=== PATIENT | female | born 1965 | race Caucasian/White ===

== ENCOUNTER → 2019-01-18 16:07 | Outpatient (CLI) | payer OTHER, SELFPAY ==
[2019-01-18 10:07] VITALS: BMI 27.5
[2019-01-21 11:17] LABS: HPV APTIMA, High Risk Negative (Negative)
== END ==
PROVIDERS: Family Provider Internal Medicine; PCP Internal Medicine; Referring Provider Obstetrics & Gynecology; Visit Provider Obstetrics & Gynecology
DX: Z12.4 Encounter for screening for malignant neoplasm of cervix (principal)
CPT/HCPCS: 87624; 88175; G0145

== ENCOUNTER → 2019-02-21 | Outpatient (CLI) | payer OTHER, SELFPAY ==
[2019-01-18 10:07] VITALS: BMI 27.5
[2019-02-21 13:01] LABS: Free T3 2.3 pg/mL (2.18-3.98); T4 Free Direct 0.68 ng/dL (0.76-1.46); Thyroid Stim Hormone (TSH) 0.93 uIU/mL (0.358-3.74)
[2019-02-24 16:03] LABS: T3 Reverse 13.8 ng/dL (9.2-24.1)
== END | disposition home or self-care (01) ==
LOC: BFHLAB 09:22
PROVIDERS: Family Provider Family Medicine; PCP Family Medicine; Visit Provider Family Medicine
DX: E03.9 Hypothyroidism, unspecified (principal)
CPT/HCPCS: 36415; 84439; 84443; 84481; 84482

== ENCOUNTER 2019-10-25 11:01 | Emergency (ER) | payer OTHER, SELFPAY ==
[2019-01-18 10:07] VITALS: BMI 27.5
[2019-10-25 11:02] VITALS: BP 159/95; PULSE 90; RESP 16; TEMP 36.4; O2SAT 96; BMI 26.7
--- NOTE | 2019-10-25 11:27 | RAD_ITS ---
STUDY: X-RAY - LEFT ANKLE REASON FOR EXAM: Female, 54 years old. Atraumatic left ankle pain. TECHNIQUE: 3 view(s) of the ankle. COMPARISON: None. FINDINGS: Normal visualized distal tibia and fibula. Normal medial and lateral malleoli. Normal tibiotalar articulation and ankle mortise. Small inferior calcaneal spur. The visualized subtalar, talonavicular, calcaneocuboid and tarsal articulations are normal. The soft tissue structures are unremarkable. RAD/Ankle min 3 Views IMPRESSION: No acute abnormality. Electronically Signed: Miguel Aguillon MD at 11:56 EST , Service support ,
--- NOTE | 2019-10-25 11:49 | ED.DCSUM_ITS ---
History of Present Illness Chief Complaint: Lower Extremity Injury Informant: Patient Onset: Today Context: Sudden Onset Narrative: Patient is a 54-year-old female with history of thyroid dysfunction presenting with left ankle pain. Patient states she was seen on the couch with her left foot underneath her. She states it fell asleep and when she went to get up she walked on her ankle 3 times and it folded underneath her. Patient then had pain over her lateral ankle and foot. She came to the emergency room because of pain and swelling. She denies any other injuries. She denies any numbness or tingling. She denies any other injuries or complaints at this time. She did not take anything for pain prior to arrival. Past Medical History - Allergies and Home Meds Allergies/Adverse Reactions: Allergies No Known Allergies Allergy (Verified 10/25/19 11:02) Primary Care Physician: Negra Dasilva DO [Primary Care Provider] - Past Medical History: - - thyroid dysfunction Smoking Status: Never smoker Review of Systems General: Denies: Chills, Fever, Sweats Eyes: Denies: Visual changes - bilaterally, Diplopia ENT: Denies: Rhinorrhea, Sore throat Cardiovascular: Denies: Chest pain, Palpitations Respiratory: Denies: Dyspnea, Cough, Dyspnea on exertion Gastrointestinal: Denies: Abdominal pain, Nausea, Vomiting, Diarrhea, Melena, Hematochezia Genitourinary: Denies: Dysuria, Hematuria, Frequency Musculoskeletal: Reports: Swelling, Extremity Pain - left ankle . Denies: Back pain Skin: Denies: Rash, Wounds Neurological: Denies: Headache, Weakness, Numbness Physical Exam Vital Signs/Narrative: Vital Signs Temp Pulse Resp BP Pulse Ox 10/25/19 11:02 97.5 F L 90 16 159/95 H 96 Inital Vital Signs reviewed: Yes General: Well nourished, Well developed, No Acute Distress Head: Normocephalic, Atraumatic Eyes: Perrl, EOMI ENT: Moist mucous membranes, No rhinorrhea Neck: Supple, Nontender Cardiovascular: Regular rate, Regular rhythm, No murmurs Respiratory: No distress, CTA bilaterally, Chest nontender Abdomen: Soft, Nontender, Nondistended, Normal bowel sounds Back: Nontender, Normal Inspection Extremities: - - Tenderness to palpation over the lateral malleolus with associated soft tissue swelling, no medial bony tenderness palpation. No tenderness to palpation over the base of fifth metatarsal. Normal Campos's test. Normal strength and sensation in the lower extremity. Skin: Normal color, No rash, No Trauma Neurological: Alert, Oriented x3, Cranial nerves II-XII grossly intact, Normal Strength, Normal Sensation Psychological: Normal affect, Normal Mood Diagnostic/Tx/Re-eval Clinical Impression(s) from Imaging Studies Ankle X-Ray 10/25/19 11:27 IMPRESSION: No acute abnormality. Electronically Signed: Miguel Aguillon MD at 11:56 EST , Service support , - Medical Decision Making Patient rolled her left ankle. She has some associated soft tissue swelling. No bony tenderness. This is consistent with a sprain. She is able to weight- bear. She is given Motrin and a air splint. She is counseled to follow-up with her primary care doctor. She is neurovascularly intact. X-ray does not show any acute fracture. Patient is counseled on rice therapy. Patient is counseled on signs and symptoms requiring return to the emergency room. Patient verbalizes agreement and understand this plan. Patient discharged home in stable and improved condition. ED Disposition - Plan for ED Patient: Disposition: Home or Assisted Living Diagnosis: Left ankle sprain Instructions: Sprain, Ankle, with X-Ray Prescriptions: Ibuprofen [Motrin] 600 mg PO Q6H PRN PRN #20 tab PRN Reason: pain Prescription Printed Referrals: Negra Dasilva DO [Primary Care Provider] - Additional Instructions: You have a sprain ankle. Ice and elevate the leg as much as you can. Take anti-inflammatory such as ibuprofen for pain and inflammation. Follow-up with your primary care provider if no improvement in the next few days. Return to emergency room if you have significantly worsening symptoms or further concerns.
[2019-10-25] MEDS: Ibuprofen 600 MG Tablet PO (11:53)
== END 2019-10-25 12:46 | disposition home or self-care (01) ==
PROVIDERS: Emergency Provider Emergency Medicine; Family Provider Family Medicine; PCP Family Medicine
DX: S93.402A Sprain of unspecified ligament of left ankle, initial encounter (principal); X50.1XXA Overexertion from prolonged static or awkward postures, initial encounter; Y92.9 Unspecified place or not applicable; Y99.9 Unspecified external cause status; E07.9 Disorder of thyroid, unspecified
CPT/HCPCS: 73610; 99283

== ENCOUNTER 2019-11-16 16:59 | Emergency (ER) | payer OTHER, SELFPAY ==
[2019-11-16 17:00] VITALS: BP 151/89; PULSE 83; RESP 16; TEMP 36.9; O2SAT 95; BMI 26.6
--- NOTE | 2019-11-16 17:25 | CT_ITS ---
STUDY: CT BRAIN WITHOUT CONTRAST REASON FOR EXAM: Female, 54 years old. HEAD VS GRANFATHER CLOCK, BUMP TO LEFT FOREHEAD RADIATION DOSAGE (If Supplied By Facility): CTDIvol = ( 44.99 ) mGy, DLP = ( 779.24 ) mGycm TECHNIQUE: Transaxial CT imaging of the brain was performed without administration of intravenous contrast material. Individualized dose optimization techniques were used for this CT. COMPARISON: No relevant priors. FINDINGS: Normal soft tissue structures. Normal calvarium. Normal size ventricles and extra-axial spaces for the patient''s age. Normal white matter tracts of the cerebral hemispheres. Normal basal ganglia and thalami. Normal brainstem. Normal cerebellum. There is no intracranial hemorrhage. There are no findings of an acute ischemic infarction. Normal visualized paranasal sinuses. CT/Brain/Head without Contrast IMPRESSION: Normal unenhanced CT scan of the brain. Electronically Signed: Yamil Hernandes DO at 18:22 EST Tel , Service support ,
--- NOTE | 2019-11-16 18:22 | ED.DCSUM_ITS ---
- ER Visit Summary Date of Service: 11/16/19 Chief Complaint: Head injury History of Present Illness: The patient is a 54 F who hit her head on a grandfather clock just prior to arrival. She sustained some swelling to her left forehead and she is also having left ear ringing and left face tingling. No loss of consciousness. No blood thinners. Physical Examination: Afebrile and vital signs unremarkable. Left forehead hematoma noted. Otherwise HEENT exam unremarkable. Cranial nerves grossly intact. Normal strength and sensation. Neck is nontender. Skin is otherwise unremarkable. Test Results: CT brain pending. Emergency Department Course and Treatment: Patient likely has a concussion. Given her focal neurologic symptoms, CT was ordered. This was unremarkable. Patient was given instructions for concussion as well as hematoma. Ice and [id number]-ieamymw remedies. Follow-up with primary care or return for any new or worsening issues. Treatment Plan: As above Disposition: Discharged Impression: 1. Concussion 2. Forehead hematoma This note was generated with [employer] dictation software. It may contain incorrect words, spelling, and punctuation that were not noted in review of the chart prior to signing ED Disposition - Plan for ED Patient: Referrals: Negra Dasilva DO [Primary Care Provider] -
--- NOTE | 2019-11-16 18:28 | ED.DEP ---
ED Disposition - Plan for ED Patient: Instructions: CONCUSSION, No Wake Up Referrals: Negra Dasilva DO [Primary Care Provider] -
[2019-11-16 18:39] VITALS: BP 124/63; PULSE 71; RESP 15; O2SAT 98
== END 2019-11-16 18:41 | disposition home or self-care (01) ==
LOC: ED 17:27
PROVIDERS: Emergency Provider Emergency Medicine; Family Provider Family Medicine; PCP Family Medicine
DX: S06.0X0A Concussion without loss of consciousness, initial encounter (principal); S00.83XA Contusion of other part of head, initial encounter; W22.8XXA Striking against or struck by other objects, initial encounter; Y93.9 Activity, unspecified; Y92.9 Unspecified place or not applicable; F41.9 Anxiety disorder, unspecified; F32.9 Major depressive disorder, single episode, unspecified; Z79.899 Other long term (current) drug therapy
CPT/HCPCS: 70450; 99282

== ENCOUNTER → 2020-06-14 15:27 | Outpatient (CLI) | payer OTHER, SELFPAY ==
[2020-06-14 18:02] LABS: Absolute Lymphocyte Count 2.16 X10^3/uL (0.83-4.51); Absolute Neutrophil Count 3.8 X10^3/uL (2.0-7.7); Basophil# 0.05 X10^3/uL; Basophil% 0.8 % (0-1); Eosinophil# 0.05 X10^3/uL; Eosinophils% 0.8 % (0-5); Hematocrit 42.8 % (37-47); Hemoglobin 13.8 g/dL (12.0-15.0); Lymphocyte # 2.16 X10^3/ul (4.0); Lymphocyte % 33.9 % (19-41); Mean Corp Hgb Conc 32.2 g/dL (32-36); Mean Corpuscular Hgb 31.2 pg (27.0-32.0); Mean Corpuscular Volume 96.6 fL (81-99); Mean Platelet Vol. 11.7 fl (6.2-12.0); Monocyte# 0.35 X10^3/uL; Monocyte% 5.5 % (0-10); NRBC Flagged by Analyzer 0 % (0-5); Neutrophil # 3.76 X10^3/uL (2.7-7.7); Neutrophil % 58.8 % (47-70); Platelet Count 224 K/mm3 (150-450); RBC Distribution Width CV 13.2 % (11.6-14.6); RBC Distribution Width SD 46.7 fl (35.1-43.9); Red Blood Count 4.43 M/mm3 (4.2-5.4); White Blood Count 6.4 K/mm3 (4.4-11.0)
[2020-06-14 18:07] LABS: Vitamin D,25 Hydroxy 32.6 ng/mL
[2020-06-14 18:17] LABS: Erythrocyte Sedimentation Rate 10 mm/hr (0-30)
[2020-06-14 18:22] LABS: ALB/GLOB Ratio 0.9 RATIO (0.9-2.4); AST(SGOT) 30 U/L (15-37); Alanine Aminotransfer ALT/SGPT 44 U/L (13-56); Albumin, Serum 3.7 g/dL (3.2-5.0); Alkaline Phosphatase 120 U/L (45-117); Anion Gap 3 (5-15); BUN 17 mg/dL (7-18); BUN/Creat Ratio 17.3 RATIO (10-20); CRP < 2.90 mg/L (0.0-3.0); Calcium,Total 8.5 mg/dL (8.5-10.1); Chloride 104 mmol/L (98-107); Creatinine, Serum 0.98 mg/dL (0.55-1.02); EST Glomerular Filtration Rate 62 mL/min (>60); Est Glom Filt Rate - Afr Amer 75 mL/min (>60); Free T3 2.6 pg/mL (2.18-3.98); Globulin 3.9 g/dL (2.2-4.2); Glucose 75 mg/dL (74-106); Potassium 3.6 mmol/L (3.5-5.1); Protein, Total 7.6 g/dL (6.4-8.2); Rheumatoid Factor < 10.0 IU/mL (<15); Sodium Level 138 mmol/L (136-145); T4 Free Direct 0.71 ng/dL (0.76-1.46); Thyroid Stim Hormone (TSH) 2.44 uIU/mL (0.358-3.74)
[2020-06-16 12:22] LABS: ANTINUCLEAR ANTIBODIES DIRECT Negative (Negative)
== END ==
PROVIDERS: PCP Family Medicine; Visit Provider Family Medicine
DX: E03.2 Hypothyroidism due to medicaments and other exogenous substances (principal); E55.9 Vitamin D deficiency, unspecified; M25.50 Pain in unspecified joint; M79.10 Myalgia, unspecified site
CPT/HCPCS: 36415; 80053; 82306; 84439; 84443; 84481; 85025; 85652; 86038; 86140; 86225; 86235; 86431

== ENCOUNTER → 2020-09-13 12:47 | Outpatient (CLI) | payer OTHER, SELFPAY ==
[2020-09-13 15:40] LABS: Free T3 3.1 pg/mL (2.18-3.98); T4 Free Direct 0.83 ng/dL (0.76-1.46); Thyroid Stim Hormone (TSH) < 0.01 uIU/mL (0.358-3.74)
[2020-09-15 07:35] LABS: SARS-COV-2 TOTAL ABS Nonreactive (Nonreactive)
== END ==
PROVIDERS: PCP Family Medicine; Visit Provider Family Medicine
DX: E03.2 Hypothyroidism due to medicaments and other exogenous substances (principal)
CPT/HCPCS: 36415; 84439; 84443; 84481; 86769

== ENCOUNTER → 2020-11-15 08:53 | Outpatient (CLI) | payer OTHER, SELFPAY ==
[2020-11-07 14:10] VITALS: BMI 27.8
--- NOTE | 2020-11-15 08:53 | BI_ITS ---
MAMMOGRAPHY - BILATERAL SCREENING REASON FOR EXAM: Female, 55 years old. Routine annual screening examination. PERTINENT HISTORY: Non-contributory. TECHNIQUE: Digital bilateral breast farhan (3D mammographic acquisition) in the CC and MLO projections. 2-D mediolateral oblique (MLO) and craniocaudad (CC) views of both breasts were obtained. CAD: Full Field Digital Mammography with Computer Added Detection was performed. COMPARISON: No comparison mammograms available at this time. If any prior films become available, an addendum to this report can be generated. FINDINGS: Breast Composition: There are scattered areas of fibroglandular density. There are no dominant masses or suspicious calcifications. Benign appearing bilateral axillary lymph nodes. No other significant abnormalities are identified. BI/SCRN MAMM (CAD)W/FARHAN BILAT IMPRESSION: Negative screening mammogram. Yearly followup mammogram recommended. (A) ASSESSMENT CATEGORY: BIRADS Category 2: Benign. A letter regarding these results will be sent to the patient by the facility within 30 days. Approximately 10% of breast cancers are not detected by mammography. A normal mammogram should not delay biopsy of a clinically suspicious abnormality. [id number] Electronically Signed: Jose Eduardo Del Valle MD at 13:49 EST , Service support ,
== END ==
PROVIDERS: PCP Family Medicine; Referring Provider Obstetrics & Gynecology; Visit Provider Obstetrics & Gynecology
DX: Z12.31 Encounter for screening mammogram for malignant neoplasm of breast (principal)
CPT/HCPCS: 77063; 77067

== ENCOUNTER → 2022-06-10 | Outpatient (CLI) | payer OTHER, SELFPAY ==
[2022-06-10 12:33] LABS: Absolute Lymphocyte Count 1.79 X10^3/uL (0.83-4.51); Absolute Neutrophil Count 2.8 X10^3/uL (2.0-7.7); Basophil# 0.03 X10^3/uL; Basophil% 0.6 % (0-1); Eosinophil# 0.03 X10^3/uL; Eosinophils% 0.6 % (0-5); Hemoglobin 14.7 g/dL (12.0-15.0); Lymphocyte # 1.79 X10^3/ul (0.83-4.51); Lymphocyte % 36.3 % (19-41); Mean Corp Hgb Conc 33.4 g/dL (32-36); Mean Corpuscular Hgb 31.3 pg (27.0-32.0); Mean Corpuscular Volume 93.8 fL (81-99); Mean Platelet Vol. 11.4 fl (6.2-12.0); Monocyte# 0.29 X10^3/uL; Monocyte% 5.9 % (0-10); NRBC Flagged by Analyzer 0 % (0-5); Neutrophil # 2.78 X10^3/uL (2.7-7.7); Neutrophil % 56.4 % (47-70); Platelet Count 248 K/mm3 (150-450); RBC Distribution Width SD 44.3 fl (35.1-43.9); Red Blood Count 4.69 M/mm3 (4.2-5.4); White Blood Count 4.9 K/mm3 (4.4-11.0)
[2022-06-10 13:07] LABS: Vitamin D,25 Hydroxy 56.4 ng/mL
[2022-06-10 13:11] LABS: AST(SGOT) 23 U/L (15-37); Alanine Aminotransfer ALT/SGPT 38 U/L (13-56); Albumin, Serum 3.6 g/dL (3.2-5.0); Alkaline Phosphatase 115 U/L (45-117); Anion Gap 6 (5-15); BUN 21 mg/dL (7-18); BUN/Creat Ratio 23.8 RATIO (10-20); Calcium,Total 9.1 mg/dL (8.5-10.1); Chloride 106 mmol/L (98-107); Cholesterol 182 mg/dL (200); Creatinine, Serum 0.88 mg/dL (0.55-1.02); EST Glomerular Filtration Rate 70 mL/min (>60); Est Glom Filt Rate - Afr Amer 84 mL/min (>60); Globulin 3.7 g/dL (2.2-4.2); Glucose 86 mg/dL (74-106); High Density Lipoprotein 57 mg/dL; Potassium 3.9 mmol/L (3.5-5.1); Protein, Total 7.3 g/dL (6.4-8.2); Sodium Level 139 mmol/L (136-145); Triglycerides 80 mg/dL; Very Low Density Lipoprotein 16 mg/dL (5-40)
[2022-06-10 13:32] LABS: Free T3 2.7 pg/mL (2.18-3.98); T4 Free Direct 1.07 ng/dL (0.76-1.46); Thyroid Stim Hormone (TSH) 0.13 uIU/mL (0.358-3.74)
== END | disposition home or self-care (01) ==
LOC: MTLAB 11:14
PROVIDERS: Internal Medicine Endocrinology, Diabetes & Metabolism; PCP Family Medicine; Referring Provider Internal Medicine; Visit Provider Internal Medicine
DX: K58.9 Irritable bowel syndrome, unspecified (principal); E89.0 Postprocedural hypothyroidism; F34.1 Dysthymic disorder; E55.9 Vitamin D deficiency, unspecified
CPT/HCPCS: 36415; 80053; 80061; 82306; 84439; 84443; 84481; 85025

== ENCOUNTER → 2022-10-16 | Outpatient (CLI) | payer OTHER, SELFPAY ==
[2022-10-16 15:35] LABS: Absolute Lymphocyte Count 2.16 X10^3/uL (0.83-4.51); Absolute Neutrophil Count 4.1 X10^3/uL (2.0-7.7); Basophil# 0.08 X10^3/uL; Basophil% 1.2 % (0-1); Eosinophil# 0.04 X10^3/uL; Eosinophils% 0.6 % (0-5); Hematocrit 43.1 % (37-47); Lymphocyte # 2.16 X10^3/ul (0.83-4.51); Lymphocyte % 31.8 % (19-41); Mean Corp Hgb Conc 32.5 g/dL (32-36); Mean Corpuscular Hgb 30.2 pg (27.0-32.0); Mean Corpuscular Volume 92.9 fL (81-99); Mean Platelet Vol. 11.6 fl (6.2-12.0); Monocyte# 0.46 X10^3/uL; Monocyte% 6.8 % (0-10); NRBC Flagged by Analyzer 0 % (0-5); Neutrophil # 4.05 X10^3/uL (2.7-7.7); Neutrophil % 59.5 % (47-70); Platelet Count 275 K/mm3 (150-450); RBC Distribution Width CV 13.4 % (11.6-14.6); RBC Distribution Width SD 45.7 fl (35.1-43.9); Red Blood Count 4.64 M/mm3 (4.2-5.4); White Blood Count 6.8 K/mm3 (4.4-11.0)
[2022-10-16 16:20] LABS: ALB/GLOB Ratio 1.1 RATIO (0.9-2.4); AST(SGOT) 31 U/L (15-37); Alanine Aminotransfer ALT/SGPT 55 U/L (13-56); Albumin, Serum 3.7 g/dL (3.2-5.0); Alkaline Phosphatase 120 U/L (45-117); Anion Gap 11 (5-15); BUN 17 mg/dL (7-18); BUN/Creat Ratio 19.8 RATIO (10-20); Calcium,Total 8.4 mg/dL (8.5-10.1); Chloride 106 mmol/L (98-107); Creatinine, Serum 0.86 mg/dL (0.55-1.02); EST Glomerular Filtration Rate 72 mL/min (>60); Est Glom Filt Rate - Afr Amer 87 mL/min (>60); Free T3 3.2 pg/mL (2.18-3.98); Globulin 3.3 g/dL (2.2-4.2); Glucose 83 mg/dL (74-106); Potassium 3.9 mmol/L (3.5-5.1); Sodium Level 142 mmol/L (136-145); T4 Free Direct 1.24 ng/dL (0.76-1.46); Thyroid Stim Hormone (TSH) 0.03 uIU/mL (0.358-3.74)
== END | disposition home or self-care (01) ==
LOC: MTLAB 13:21
PROVIDERS: PCP Family Medicine; Referring Provider Family Medicine; Visit Provider Family Medicine
DX: E03.9 Hypothyroidism, unspecified (principal); Z51.81 Encounter for therapeutic drug level monitoring
CPT/HCPCS: 36415; 80053; 84439; 84443; 84481; 85025

== ENCOUNTER 2022-10-22 11:24 | Emergency (ER) | payer OTHER, SELFPAY ==
[2022-10-22 11:24] VITALS: BP 136/94; PULSE 102; RESP 16; TEMP 36.8; O2SAT 98; BMI 29.0
--- NOTE | 2022-10-22 12:05 | EDS_ITS ---
HPI History of Present Illness Chief Complaint: Nausea/Vomiting/Diarrhea Informant: patient and spouse/S.O. Narrative Narrative: 57-year-old female presenting to the emergency department with a chief complaint of vomiting and diarrhea. Patient states that on Thursday she began to have a headache and feel poorly. By Thursday she was having intermittent fevers headache cough rhinorrhea and has now subsequently developed vomiting and diarrhea. She states she did not have anything to drink Thursday and Thursday. She states she feels very dehydrated and talked to her doctor and was sent in for evaluation. She wonders if she has influenza. [facility] Medical History Anxiety and depression IBS (irritable bowel syndrome) Postablative hypothyroidism Thyroid disorder Home Medications liothyronine 5 mcg tablet 5 mcg PO DAILY 10/25/19 [History Last Taken Unknown] albuterol sulfate 90 mcg/actuation aerosol inhaler 2 puff inhalation Q6H PRN shortness of breath or wheezing #6.7 grams 10/27/21 [Rx Last Taken Unknown] levothyroxine 88 mcg tablet 88 mcg PO DAILY #90 tabs 04/25/22 [Rx Last Taken Unknown] promethazine 25 mg tablet 25 mg PO Q6H PRN 06/05/22 [History Last Taken Unknown] triamterene 37.5 mg-hydrochlorothiazide 25 mg capsule 1 cap PO DAILY PRN 06/05/22 [History Last Taken Unknown] codeine 7.5 mg-guaifenesin 225 mg/5 mL oral liquid 7.5 ml PO Q6H PRN cough 5 days #150 mL 10/22/22 [Rx Last Taken Unknown] ondansetron HCl 4 mg tablet 4 mg PO Q6H PRN nausea and vomiting #15 tabs 10/22/22 [Rx Last Taken Unknown] potassium chloride 20 mEq tablet,extended release 20 meq PO BID #10 tabs 10/22/22 [Rx Last Taken Unknown] Allergy/AdvReac Type Severity Reaction Status Date / Time No Known Allergies Allergy Verified 10/22/22 11:27 Family History Father Cancer colorectal Grandfather Myocardial infarction Grandmother Dementia Surgical History History of laparotomy Hx of appendectomy Hx of laparoscopy Social History Smoking Status: Never smoker alcohol intake: current details: social substance use type: does not use what type of physical activity do you participate in: walking seatbelt use: always do you feel safe at home: Yes additional social history: - Unemployed ROS ROS ED Constitutional Constitutional ED: Reports chills and fever(s); Denies weight loss Eyes Eyes: Denies change in vision or diplopia ENT ENT ED: Reports rhinorrhea; Denies ear pain or sore throat Cardiovascular Cardiovascular: Denies chest pain, orthopnea, palpitations or racing heartbeat Respiratory/Chest Respiratory/Chest: Reports cough; Denies dyspnea or orthopnea Gastrointestinal Gastrointestinal: Reports diarrhea, nausea and vomiting; Denies abdominal pain Genitourinary Genitourinary ED: Denies dysuria, hematuria or urinary frequency Musculoskeletal Musculoskeletal: Denies arthralgias or myalgias Integumentary Denies abscess or rash Neurologic Neurologic: Reports headache(s); Denies weakness Psychiatric Psychiatric: Denies anxiety, depression, suicidal ideation or suicidal thoughts Endocrine Endocrinology: Denies polydipsia, polyphagia or polyuria Allergic/Immunologic Allergic/Immunologic ED: Denies mouth swelling, tongue swelling or urticaria EXAM Physical Exam Const Vital Signs: 10/22/22 11:24 10/22/22 13:26 Temperature 98.2 F Temperature Source Temporal Pulse Rate 102 H 67 Respiratory Rate 16 18 Blood Pressure 136/94 H Blood Pressure Mean 108 Pulse Ox 98 99 Oxygen Delivery Method Room Air Room Air Positive well nourished and well developed General Appearance ED: well developed HEENT Reports normocephalic, head/scalp atraumatic and moist mucous membranes Eyes PERRL and EOMs intact bilaterally Neck no lymphadenopathy, supple and no JVD Resp normal respiratory effort and clear to auscultation bilaterally Cardio regular rate and no murmurs Rate: tachycardic GI normal to inspection, nondistended, normoactive bowel sounds and non-tender Palpation: soft Back/Spine no CVA tenderness and normal ROM Extremity normal to inspection General Extremety ED: Negative for edema General Extremity: Negative for edema Neuro oriented x3 and CN's II-XII intact bilaterally Sensorium / Orientation: alert Motor Exam: strength 5/5 throughout Psych mental status grossly normal Mood & Affect: Negative for depressed or tearful Skin no rashes or lesions noted and no wounds MDM MDM MDM Narrative Medical decision making narrative: Patient's COVID influenza is negative. My interpretation of the chest x-ray is acute process. Radiology is concerned about some mild degree of increased marking at the lung bases right greater than left. However her lung sounds are clear and her cough seems to sound more upper airway. Clinically she has a viral gastroenteritis viral URI. We checked her BMP which showed a potassium of 2.8 and a sodium of 131. She received 40 mEq of potassium and we will place her on supplementation. This is most likely combination of GI losses as well as her triamterene hydrochlorothiazide medication. I can write for the patient to have some codeine guaifenesin for her cough. At this point patient will be discharged home supportive care return if worsening or concerns Lab Data Attestation: I reviewed the patient's lab results. Labs: Laboratory Results - last 24 hr 10/22/22 12:30 Sodium 131 L Potassium 2.8 L Chloride 96 L Carbon Dioxide 26.0 Anion Gap 9 BUN 13 Creatinine 0.99 Estim Creat Clear Calc 52.84 Est GFR (MDRD) Af Amer 74 Est GFR (MDRD) Non-Af 61 BUN/Creatinine Ratio 13.2 Glucose 108 H Calcium 8.2 L Radiography Diagnostic Testing: Clinical Impression(s) from Imaging Studies Chest X-Ray 10/22/22 12:35 IMPRESSION: Mild degree of increased markings at the lung bases more prominent on the right side suggestive of atelectasis and/or early infiltrate. Follow-up recommended. Electronically Signed: Jose Eduardo Del Valel MD at 13:04 EST , Discharge Plan Triage Chief Complaint: Nausea/Vomiting/Diarrhea ED Provider: Ke Villarreal Dx/Rx/DC Orders Clinical Impression: Gastroenteritis, Acute hypokalemia, Acute dehydration Instructions: ED Gastroenteritis, Viral (Adult) Prescriptions: New ondansetron HCl 4 mg tablet 4 mg PO Q6H PRN (Reason: nausea and vomiting) Qty: 15 0RF potassium chloride 20 mEq tablet extended release 20 meq PO BID Qty: 10 0RF codeine-guaifenesin 7.5-225 mg/5 mL liquid 7.5 ml PO Q6H PRN (Reason: cough) 5 Days Qty: 150 0RF No Action albuterol sulfate 90 mcg/actuation HFA aerosol inhaler 2 puff inhalation Q6H PRN (Reason: shortness of breath or wheezing) Qty: 6.7 0RF triamterene-hydrochlorothiazid 37.5-25 mg capsule 1 cap PO DAILY PRN promethazine 25 mg tablet 25 mg PO Q6H PRN levothyroxine 88 mcg tablet 88 mcg PO DAILY Qty: 90 1RF liothyronine 5 MCG tablet 5 mcg PO DAILY Label Comments: 1 TABLET ORALLY DAILY ON AN EMPTY STOMACH Primary Care Provider: Negra Dasilva Referrals: Negra Dasilva DO [Primary Care Provider] - 3-5 Days if not improving Disposition Disposition: Home, Self Care
[2022-10-22] MEDS: Ondansetron 4 MG/2 ML Vial IV (12:31)
[2022-10-22] MEDS: 0.9% Normal Saline 1,000 ML 1000 ML IV ×2 (12:31→13:21)
--- NOTE | 2022-10-22 12:35 | RAD_ITS ---
STUDY: X-RAY CHEST REASON FOR EXAM: Female, 57 years old. Cough and nausea and vomiting. Chest congestion. TECHNIQUE: Single AP portable view of the chest. COMPARISON: None. FINDINGS: Mild increased markings at the lung bases suggestive of bibasilar atelectasis and/or possible infiltrates worse on the right side. There is no demonstrated pleural abnormality. Normal size heart. Normal mediastinum and norm. Normal visualized pulmonary arteries. Normal visualized aortic arch and descending thoracic aorta. Normal visualized thoracic spine. Normal visualized ribs, clavicles, and shoulders. There is no demonstrated abnormality of the visualized soft tissue structures of the upper abdomen. RAD/Chest 1 View (Portable) IMPRESSION: Mild degree of increased markings at the lung bases more prominent on the right side suggestive of atelectasis and/or early infiltrate. Follow-up recommended. Electronically Signed: Jose Eduardo Del Valle MD at 13:04 EST ,
[2022-10-22 12:50] LABS: Anion Gap 9 (5-15); BUN 13 mg/dL (7-18); BUN/Creat Ratio 13.2 RATIO (10-20); Calcium,Total 8.2 mg/dL (8.5-10.1); Chloride 96 mmol/L (98-107); Creatinine, Serum 0.99 mg/dL (0.55-1.02); EST Glomerular Filtration Rate 61 mL/min (>60); Est Glom Filt Rate - Afr Amer 74 mL/min (>60); Estimated Creatinine Clearance 52.84 ml/min; Glucose 108 mg/dL (74-106); Potassium 2.8 mmol/L (3.5-5.1); Sodium Level 131 mmol/L (136-145)
[2022-10-22] MEDS: Potassium Chloride Oral Soln 20 MEQ/15 ML UDC 40 MEQ PO (13:21)
[2022-10-22 13:26] VITALS: PULSE 67; RESP 18; O2SAT 99
[2022-10-22 14:35] VITALS: BP 124/66; PULSE 79; RESP 15; O2SAT 98
== END 2022-10-22 14:36 | disposition home or self-care (01) ==
PROVIDERS: Emergency Provider Emergency Medicine; PCP Family Medicine; Visit Provider Emergency Medicine
DX: K52.9 Noninfective gastroenteritis and colitis, unspecified (principal); E86.0 Dehydration; E87.6 Hypokalemia; Z20.822 Contact with and (suspected) exposure to COVID-19
CPT/HCPCS: 71045; 80048; 87428; 96361; 96374; 99282; J7030; J2405

== ENCOUNTER → 2022-12-23 | Outpatient (CLI) | payer OTHER, SELFPAY ==
[2022-12-23 12:27] LABS: Absolute Lymphocyte Count 2.09 X10^3/uL (0.83-4.51); Absolute Neutrophil Count 3.1 X10^3/uL (2.0-7.7); Basophil# 0.05 X10^3/uL; Basophil% 0.9 % (0-1); Eosinophil# 0.05 X10^3/uL; Eosinophils% 0.9 % (0-5); Hematocrit 44.4 % (37-47); Hemoglobin 14.3 g/dL (12.0-15.0); Lymphocyte # 2.09 X10^3/ul (0.83-4.51); Lymphocyte % 36.5 % (19-41); Mean Corp Hgb Conc 32.2 g/dL (32-36); Mean Corpuscular Hgb 30.4 pg (27.0-32.0); Mean Corpuscular Volume 94.3 fL (81-99); Mean Platelet Vol. 11.9 fl (6.2-12.0); Monocyte# 0.42 X10^3/uL; Monocyte% 7.3 % (0-10); NRBC Flagged by Analyzer 0 % (0-5); Neutrophil # 3.11 X10^3/uL (2.7-7.7); Neutrophil % 54.2 % (47-70); Platelet Count 276 K/mm3 (150-450); RBC Distribution Width CV 13.5 % (11.6-14.6); RBC Distribution Width SD 47.7 fl (35.1-43.9); Red Blood Count 4.71 M/mm3 (4.2-5.4); White Blood Count 5.7 K/mm3 (4.4-11.0)
[2022-12-23 12:57] LABS: AST(SGOT) 29 U/L (15-37); Alanine Aminotransfer ALT/SGPT 38 U/L (13-56); Albumin, Serum 3.8 g/dL (3.2-5.0); Alkaline Phosphatase 108 U/L (45-117); Anion Gap 8 (5-15); BUN 12 mg/dL (7-18); BUN/Creat Ratio 12.5 RATIO (10-20); Calcium,Total 8.9 mg/dL (8.5-10.1); Chloride 105 mmol/L (98-107); Creatinine, Serum 0.96 mg/dL (0.55-1.02); EST Glomerular Filtration Rate 63 mL/min (>60); Est Glom Filt Rate - Afr Amer 77 mL/min (>60); Free T3 3.2 pg/mL (2.18-3.98); Globulin 3.9 g/dL (2.2-4.2); Glucose 94 mg/dL (74-106); Potassium 3.8 mmol/L (3.5-5.1); Protein, Total 7.7 g/dL (6.4-8.2); Sodium Level 140 mmol/L (136-145); T4 Free Direct 1.08 ng/dL (0.76-1.46); Thyroid Stim Hormone (TSH) 0.34 uIU/mL (0.358-3.74)
[2022-12-23 17:48] LABS: Xtra Tube EP Lab EXTRA TUBE
== END | disposition home or self-care (01) ==
LOC: BFHLAB 09:40
PROVIDERS: PCP Family Medicine; Visit Provider Family Medicine
DX: E03.9 Hypothyroidism, unspecified (principal); Z51.81 Encounter for therapeutic drug level monitoring
CPT/HCPCS: 36415; 80053; 84439; 84443; 84481; 85025

== ENCOUNTER → 2023-01-30 | Outpatient (CLI) | payer OTHER, SELFPAY ==
[2023-01-30 15:25] LABS: Free T3 2.7 pg/mL (2.18-3.98); T4 Free Direct 0.75 ng/dL (0.76-1.46); Thyroid Stim Hormone (TSH) 0.78 uIU/mL (0.358-3.74)
== END | disposition home or self-care (01) ==
LOC: BFHLAB 11:13
PROVIDERS: PCP Family Medicine; Referring Provider Family Medicine; Visit Provider Family Medicine
DX: E03.9 Hypothyroidism, unspecified (principal)
CPT/HCPCS: 36415; 84439; 84443; 84481

== ENCOUNTER → 2023-05-11 | Outpatient (CLI) | payer OTHER, SELFPAY ==
[2023-05-11 12:23] LABS: Free T3 2.5 pg/mL (2.18-3.98); T4 Free Direct 0.76 ng/dL (0.76-1.46)
== END | disposition home or self-care (01) ==
LOC: BFHLAB 10:35
PROVIDERS: PCP Family Medicine; Referring Provider Family Medicine; Visit Provider Family Medicine
DX: E03.9 Hypothyroidism, unspecified (principal)
CPT/HCPCS: 36415; 84439; 84443; 84481

== ENCOUNTER → 2024-01-01 | Outpatient (CLI) | payer OTHER, SELFPAY ==
--- OUTSIDE RECORDS SUMMARY | 2024-01-01 11:27 | XMS RPT_ITS | CCD ---
Author Name Unknown Address [address] [place] [address] Organization [facility] Care Team Providers Care Bean Sorter Name Role Phone JUVENCIO HERNANDEZ Unavailable Unavailable JUVENCIO HERNANDEZ Unavailable Unavailable AUGUST BRAN Attending Unavailable AUGUST BRAN Primary Care Unavailable AUGUST BRAN Admitting Unavailable Allergies Allergy Classification Reported Allergen(s) Allergy Type Date of Onset Reaction(s) Facility (1 source) Seasonal allergy; Translations: [SEASONAL ALLERGIES] Propensity to adverse reactions (disorder) 8 [facility] Repository Problems Problem Classification Problem Date Documented Date Episodic/Chronic Complications of surgical procedures or medical care (1 source) Postprocedural hypothyroidism; Translations: [Postprocedural hypothyroidism] Onset: 10-16-2018 Chronic Nutritional deficiencies (1 source) Vitamin D deficiency, unspecified; Translations: [Vitamin D deficiency, unspecified] Onset: 10-16-2018 Chronic Other screening for suspected conditions (not mental disorders or infectious disease) (1 source) Other abnormal and inconclusive findings on diagnostic imaging of breast; Translations: [Other abnormal and inconclusive findings on diagnostic imaging of breast] Onset: 10-16-2018 Episodic Thyroid disorders (1 source) Thyrotoxicosis with diffuse goiter without thyrotoxic crisis or storm; Translations: [Thyrotoxicosis with diffuse goiter without thyrotoxic crisis or storm] Onset: 10-16-2018 Chronic Results Test Name Value Interpretation Reference Range Facil ity Encounters Encounter Date Encounter Type Care Provider Facility Start: 10-30-2021 End: 10-30-2021 [facility]: 10-16-2018 End: 11-01-2018 Patient encounter procedure JUVENCIO HERNANDEZ [facility] Start: 06-07-2018 End: 06-10-2018 Patient encounter procedure JUVENCIO HERNANDEZ [facility] Start: 06-04-2018 End: 06-07-2018 [facility] Payers Date Payer Category Payer Unknown [id number] [id number] [id number] Unknown [id number] Summary Purpose Family History No Family History Records FoundNo Family History Records Found Advance Directives No Advanced Directives Records FoundNo Advanced Directives Records Found Additional Source Comments INFORMATION SOURCE (unrecogn ized section and content) DATE CREATED AUTHOR AUTHOR'S ORGANIZ ATION 11/01/2021 [facility] FOR RECORDS PERTAINING TO PATIENTS WHO ARE OR HAVE BEEN ENROLLED IN A CHEMICAL DEPENDENCY/SUBSTANCEABUSE PROGRAM, SOME INFORMATION MAY BE OMITTED. This clinical summary was aggregated from multiple sources. Caution should be exercised in using it in the provision of clinical care. This summary normalizes information from multiple sources, and as a consequence, information in this document may materially change the coding, format and clinical context of patient data. In addition, data may be omitted in some cases. CLINICAL DECISIONS SHOULD BE BASED ON THE PRIMARY CLINICAL RECORDS. [facility] [employer] [facility]. provides no warranty or guarantee of the accuracy or completeness of information in this document.
== END | disposition home or self-care (01) ==
LOC: BFHLAB 11:02 → LABSPEC 11:03
PROVIDERS: PCP Family Medicine; Visit Provider Family Medicine
DX: N30.91 Cystitis, unspecified with hematuria (principal)
CPT/HCPCS: 87086; 87088

== ENCOUNTER → 2024-01-13 | Outpatient (CLI) | payer OTHER, SELFPAY ==
[2024-01-13 11:56] LABS: Absolute Lymphocyte Count 2.04 X10^3/uL (0.83-4.51); Absolute Neutrophil Count 3.6 X10^3/uL (2.0-7.7); Basophil# 0.06 X10^3/uL; Eosinophils% 1.6 % (0-5); Hematocrit 44.5 % (37-47); Hemoglobin 14.2 g/dL (12.0-15.0); Lymphocyte # 2.04 X10^3/ul (0.83-4.51); Lymphocyte % 32.7 % (19-41); Mean Corp Hgb Conc 31.9 g/dL (32-36); Mean Corpuscular Hgb 30.4 pg (27.0-32.0); Mean Corpuscular Volume 95.3 fL (81-99); Monocyte# 0.38 X10^3/uL; Monocyte% 6.1 % (0-10); NRBC Flagged by Analyzer 0 % (0-5); Neutrophil # 3.64 X10^3/uL (2.7-7.7); Neutrophil % 58.4 % (47-70); Platelet Count 260 K/mm3 (150-450); RBC Distribution Width CV 13.7 % (11.6-14.6); RBC Distribution Width SD 48.1 fl (35.1-43.9); Red Blood Count 4.67 M/mm3 (4.2-5.4); White Blood Count 6.2 K/mm3 (4.4-11.0)
[2024-01-13 12:35] LABS: ALB/GLOB Ratio 1.1 RATIO (0.9-2.4); AST(SGOT) 22 U/L (15-37); Alanine Aminotransfer ALT/SGPT 23 U/L (13-56); Albumin, Serum 3.8 g/dL (3.2-5.0); Alkaline Phosphatase 84 U/L (45-117); Anion Gap 5 (5-15); BUN 16 mg/dL (7-18); BUN/Creat Ratio 16.3 RATIO (10-20); Calcium,Total 8.9 mg/dL (8.5-10.1); Chloride 107 mmol/L (98-107); Cholesterol 181 mg/dL (200); Creatinine, Serum 0.98 mg/dL (0.55-1.02); EST Glomerular Filtration Rate 62 mL/min (>60); Est Glom Filt Rate - Afr Amer 74 mL/min (>60); Free T3 1.6 pg/mL (2.18-3.98); Globulin 3.4 g/dL (2.2-4.2); Glucose 94 mg/dL (74-106); High Density Lipoprotein 56 mg/dL; Protein, Total 7.2 g/dL (6.4-8.2); Sodium Level 140 mmol/L (136-145); T4 Free Direct 0.54 ng/dL (0.76-1.46); Triglycerides 93 mg/dL; Very Low Density Lipoprotein 19 mg/dL (5-40)
--- OUTSIDE RECORDS SUMMARY | 2024-01-13 20:14 | XMS RPT_ITS | CCD ---
Author Name Unknown Address [address] [place] [address] Organization [facility] Care Team Providers Care Financial Services Agent Name Role Phone JUVENCIO HERNANDEZ Unavailable Unavailable JUVENCIO HERNANDEZ Unavailable Unavailable AUGUST BRAN Attending Unavailable AUGUST BRAN Primary Care Unavailable AUGUST BRAN Admitting Unavailable Allergies Allergy Classification Reported Allergen(s) Allergy Type Date of Onset Reaction(s) Facility (1 source) Seasonal allergy; Translations: [SEASONAL ALLERGIES] Propensity to adverse reactions (disorder) 8 [facility] Repository Problems Problem Classification Problem Date Documented [...] End: 10-30-2021 [facility] Start: 10-16-2018 End: 11-01-2018 Patient encounter procedure JUVENCIO HERNANDEZ [facility] Start: 06-07-2018 End: 06-10-2018 Patient encounter procedure JUVENCIO HERNANDEZ [facility] Start: 06-04-2018 End: 06-07-2018 [facility] Payers Date Payer Category Payer Unknown [id number] Unknown [id number] Summary Purpose Family History No Family History Records FoundNo Family History Records Found Advance Directives No Advanced Directives Records FoundNo Advanced Directives Records Found Additional Source Comments INFORMATION SOURCE (unrecogn ized section and content) DATE CREATED AUTHOR AUTHOR'S ORGANIZ ATION 11/01/2021 [facility] FOR RECORDS PERTAINING TO PATIENTS WHO [...] BE BASED ON THE PRIMARY CLINICAL RECORDS. [facility] [employer] [facility]. provides no warranty or guarantee of the accuracy or completeness of information in this document.
== END | disposition home or self-care (01) ==
LOC: BFHLAB 10:30
PROVIDERS: PCP Family Medicine; Visit Provider Family Medicine
DX: E03.9 Hypothyroidism, unspecified (principal); E78.5 Hyperlipidemia, unspecified
CPT/HCPCS: 36415; 80053; 80061; 84439; 84443; 84481; 85025

== ENCOUNTER → 2024-02-24 | Outpatient (CLI) | payer OTHER, SELFPAY ==
--- NOTE | 2024-02-24 10:36 | BI_ITS ---
MAMMOGRAPHY - BILATERAL SCREENING REASON FOR EXAM: Female, 58 years old. Routine annual screening examination. PERTINENT HISTORY: Non-contributory. TECHNIQUE: Digital bilateral breast farhan (3D mammographic acquisition) in the CC and MLO projections. 2-D mediolateral oblique (MLO) and craniocaudad (CC) views of both breasts were obtained. CAD: Full Field Digital Mammography with Computer Added Detection was performed. COMPARISON: Comparison is made with prior study of November 15, 2020. FINDINGS: Breast Composition: The breasts are heterogeneously dense, which may obscure small masses. There are no dominant masses or suspicious calcifications. Stable small benign-appearing bilateral axillary lymph nodes. No other significant abnormalities are identified. There has been no significant change since the prior study. BI/SCRN MAMM (CAD)W/FARHAN BILAT IMPRESSION: Stable bilateral screening mammogram. Yearly follow-up mammogram recommended. (A) ASSESSMENT CATEGORY: BIRADS Category 2: Benign. A letter regarding these results will be sent to the patient by the facility within 30 days. Approximately 10% of breast cancers are not detected by mammography. A normal mammogram should not delay biopsy of a clinically suspicious abnormality. [id number] Electronically Signed: Jose Eduardo Del Valle MD at 12:12 EDT ,
== END | disposition home or self-care (01) ==
LOC: OPBI 10:34
PROVIDERS: PCP Family Medicine; Referring Provider Family Medicine; Visit Provider Family Medicine
DX: Z12.31 Encounter for screening mammogram for malignant neoplasm of breast (principal)
CPT/HCPCS: 77063; 77067

== ENCOUNTER 2024-03-29 07:50 | Day surgery (SDC) | payer OTHER, SELFPAY ==
[2024-03-29] VITALS (7 sets, daily range): BP systolic 82–102; BP diastolic 45–75; PULSE 66–74; RESP 16; TEMP 36.3–36.9; O2SAT 98–100; BMI 22.1
[2024-03-29] MEDS: Lactated Ringers 1,000 ML 15 ML IV (08:14)
--- NOTE | 2024-03-29 08:16 | PCM.HP.STD ---
[facility] - General General Date of Service: 03/29/24 Chief Complaint: Family history of colon cancer, surveillance HPI Narrative AUGUST URIBE, is a 58 F who presents for a surveillance colonoscopy today. She has a family history of her father had rectal cancer and from it. Her previous colonoscopy was December 2016. Fortunately she has not had any bright red blood per rectum or melena. She presents via open access today. [facility] Medical History (Updated 03/29/24 @ 08:[address] Phil Ruiz MD) Wears glasses Graves disease Fatty liver Diverticulosis History of IBS Non-smoker Adult ADHD Family history of colon cancer in father IBS (irritable bowel syndrome) Postablative hypothyroidism Thyroid disorder Anxiety and depression Home Medications ?Medication ?Instructions ?Recorded ?Last Taken ?Type albuterol sulfate 90 mcg/actuation 2 puff inhalation Q6H PRN 07/30/23 Unknown History aerosol inhaler shortness of breath or wheezing dextroamphetamine-amphetamine ER 15 mg PO DAILY 01/28/24 Unknown History 15 mg 24hr capsule,extend release semaglutide 0.25 mg or 0.5 mg (2 0.5 mg subcut QWEEK 01/28/24 Unknown History mg/3 mL) subcutaneous pen injector (Ozempic) thyroid (pork) 90 mg tablet 90 mg PO DAILY 01/28/24 Unknown History ([facility] Thyroid) Allergy/AdvReac Type Severity Reaction Status Date / Time No Known Allergies Allergy Verified 03/29/24 08:07 Family History (Updated 01/28/24 @ 10:40 by Mary Arias) Father Colorectal cancer Grandfather Myocardial infarction Colon cancer Grandmother Dementia Surgical History Hx of colonoscopy Hx of appendectomy History of laparotomy Hx of laparoscopy Social History current occupational status: employed Smoking Status: Never smoker alcohol intake: current details: social substance use type: does not use what type of physical activity do you participate in: walking seatbelt use: always do you feel safe at home: Yes additional social history: ROS Constitutional Constitutional: Reports systems reviewed and no addt'l complaints, except as documented Cardiovascular Cardiovascular: Denies chest pain Respiratory/Chest Respiratory/Chest: Denies shortness of breath at rest Gastrointestinal Gastrointestinal: Denies abdominal pain, change in bowel habits, hematochezia or melena Vital Signs Vital Signs Vital Signs: 03/29/24 08:07 03/29/24 08:07 Temperature 98.5 F Temperature Source Temporal Pulse Rate 74 Respiratory Rate 16 Respiratory Pattern Normal Blood Pressure 102/75 Blood Pressure Mean 84 Blood Pressure Source Monitor Blood Pressure Position Semi-Fowlers Blood Pressure Location Left Arm Pulse Ox 100 Oxygen Delivery Method Room Air Weight Weight: 128 lb 11.999 oz Body Mass Index (BMI) 22.1 Physical Exam Const alert, oriented x3 and no apparent distress General Appearance: cooperative and comfortable Eyes General Eye: normal appearance of both eyes Neck General: normal visual inspection Chest inspection of chest normal Resp Effort and Inspection: able to speak in complete sentences and symmetric chest movement Auscultation: clear to auscultation bilaterally Cardio regular rate and regular rhythm GI soft to palpation, non-tender and non-distended Extremity no calf tenderness Neuro oriented x3 Psych thought process normal Assessment & Plan Assessment/Plan (1) Family history of colon cancer in father: PLAN: The patient presents via open access today for a surveillance colonoscopy based upon a family history of colon cancer in her father. She is aware of the technique, benefit, risk, alternatives. She has had an opportunity to ask and have questions answered. We will proceed as noted. Phil Ruiz M.D., F.A.C.S.
--- NOTE | 2024-03-29 10:00 | OP.CCLET_ITS ---
03/29/2024 Negra Dasilva [address] [place] [address] Re : Colonoscopy procedure for Isa Kendrick Dear Dr. Dasilva This procedure was performed on Friday, March 29, 2024. My impressions and recommendations are as follows: Impressions : - Hemorrhoids found on perianal exam. - Diverticulosis in the sigmoid colon. - The examination was otherwise normal. - No specimens collected. Recommendations : - Discharge patient to home. - Resume previous diet. - Continue present medications. - Repeat colonoscopy in 5 years for surveillance. My findings are described in the full procedure note, which is enclosed. If I can be of further assistance, please feel free to contact me at Doctor phone number(s): Work: . Sincerely, Phil Ruiz MD 03/29/2024 9:59:50 AM This report has been signed electronically.
--- NOTE | 2024-03-29 10:00 | OP.COLON_ITS ---
Patient Name: Isa Kendrick Procedure Date: 03/29/2024 9:31 AM Date of : 1965 Age: 58 Procedure: Colonoscopy Indications: Colon cancer screening in patient at increased risk: Colorectal cancer in father Providers: Phil Ruiz MD Medicines: See the Anesthesia note for documentation of the administered medications Patient Profile: Last Colonoscopy: December 2016. Complications: No immediate complications. Procedure: Pre-Anesthesia Assessment: - Prior to the procedure, a History and Physical was performed, and patient medications and allergies were reviewed. The patient's tolerance of previous anesthesia was also reviewed. The risks and benefits of the procedure and the sedation options and risks were discussed with the patient. All questions were answered, and informed consent was obtained. Prior Anticoagulants: The patient has taken no anticoagulant or antiplatelet agents. ASA Grade Assessment: II - A patient with mild systemic disease. After reviewing the risks and benefits, the patient was deemed in satisfactory condition to undergo the procedure. After I obtained informed consent, the scope was passed under direct vision. Throughout the procedure, the patient's blood pressure, pulse, and oxygen saturations were monitored continuously. The adult colonoscope was introduced through the anus and advanced to the cecum, identified by appendiceal orifice and ileocecal valve. The colonoscopy was somewhat difficult due to multiple diverticula in the colon. The patient tolerated the procedure well. The quality of the bowel preparation was good. The ileocecal valve and the appendiceal orifice were photographed. Scope In: 9:39:11 AM Scope Withdrawal Time 0 hours 7 minutes 49 seconds Scope Out: 9:54:47 AM Total Procedure Duration Time 0 hours 15 minutes 36 seconds Findings: Hemorrhoids were found on perianal exam. Multiple diverticula were found in the sigmoid colon. The exam was otherwise without abnormality. Impression: - Hemorrhoids found on perianal exam. - Diverticulosis in the sigmoid colon. - The examination was otherwise normal. - No specimens collected. Recommendation: - Discharge patient to home. - Resume previous diet. - Continue present medications. - Repeat colonoscopy in 5 years for surveillance. Procedure Code(s): --- Professional --- 34989, Colonoscopy, flexible; diagnostic, including collection of specimen(s) by brushing or washing, when performed (separate procedure) Diagnosis Code(s): --- Professional --- K64.9, Unspecified hemorrhoids K57.30, Diverticulosis of large intestine without perforation or abscess without bleeding CPT copyright 2021 [employer]. All rights reserved. The codes documented in this report are preliminary and upon women specialist review may be revised to meet current compliance requirements. Phil Ruiz MD 03/29/2024 9:59:50 AM This report has been signed electronically. Number of Addenda: 0 Note Initiated On: 03/29/2024 9:31 AM
== END 2024-03-29 10:54 | disposition home or self-care (01) ==
LOC: EN 07:51 → AC 07:51
PROVIDERS: PCP Family Medicine; Referring Provider Family Medicine; Visit Provider Surgery
PROC: 0DJD8ZZ Inspection of Lower Intestinal Tract, Via Natural or Artificial Opening Endoscopic (ICD-10-PCS; CPT 45378; principal; 2024-03-29 08:55)
DX: Z12.11 Encounter for screening for malignant neoplasm of colon (principal); K57.30 Diverticulosis of large intestine without perforation or abscess without bleeding; Z80.0 Family history of malignant neoplasm of digestive organs; K64.9 Unspecified hemorrhoids
CPT/HCPCS: 45378; J2405

== ENCOUNTER 2024-05-05 05:59 | Emergency (ER) | payer OTHER, SELFPAY ==
[2024-05-05 06:00] VITALS: BP 149/84; PULSE 55; RESP 16; TEMP 36.4; O2SAT 100; BMI 22.5
[2024-05-05 06:51] LABS: Absolute Lymphocyte Count 1.67 X10^3/uL (0.83-4.51); Absolute Neutrophil Count 6.3 X10^3/uL (2.0-7.7); Basophil# 0.03 X10^3/uL; Basophil% 0.4 % (0-1); Eosinophil# 0.07 X10^3/uL; Eosinophils% 0.8 % (0-5); Hemoglobin 13.5 g/dL (12.0-15.0); Lymphocyte # 1.67 X10^3/ul (0.83-4.51); Lymphocyte % 19.9 % (19-41); Mean Corp Hgb Conc 32.9 g/dL (32-36); Mean Corpuscular Hgb 30.5 pg (27.0-32.0); Mean Corpuscular Volume 92.6 fL (81-99); Monocyte# 0.34 X10^3/uL; NRBC Flagged by Analyzer 0 % (0-5); Neutrophil # 6.27 X10^3/uL (2.7-7.7); Neutrophil % 74.5 % (47-70); Platelet Count 217 K/mm3 (150-450); RBC Distribution Width CV 12.2 % (11.6-14.6); RBC Distribution Width SD 41.6 fl (35.1-43.9); Red Blood Count 4.43 M/mm3 (4.2-5.4); White Blood Count 8.4 K/mm3 (4.4-11.0)
[2024-05-05 07:01] LABS: Color, Urine Yellow (Yellow); Glucose, Dipstick Normal (Normal); Ketone-Dipstick Negative (Negative); Leukocyte Esterase-Dipstick 25 /ul (Negative); Nitrite-Dipstick Negative (Negative); Occult Blood-Urine 250 /ul (Negative); Protein-Dipstick Negative (Negative); Specific Gravity, Urine 1.015 (1.002-1.030); Urine Bilirubin Dipstick Negative (Negative); Urine Clarity Clear (Clear); Urine Urobilinogen Normal (Normal); Urine pH 6.5 (5.0 - 8.0)
[2024-05-05 07:09] LABS: AST(SGOT) 20 U/L (15-37); Alanine Aminotransfer ALT/SGPT 28 U/L (13-56); Albumin, Serum 3.2 g/dL (3.2-5.0); Alkaline Phosphatase 86 U/L (45-117); Anion Gap 7 (5-15); BUN 23 mg/dL (7-18); BUN/Creat Ratio 24.3 RATIO (10-20); Bilirubin, Direct 0.13 mg/dL (0.00-0.30); Calcium,Total 8.7 mg/dL (8.5-10.1); Chloride 108 mmol/L (98-107); Creatinine, Serum 0.95 mg/dL (0.55-1.02); EST Glomerular Filtration Rate 64 mL/min (>60); Est Glom Filt Rate - Afr Amer 77 mL/min (>60); Estimated Creatinine Clearance 54.38 ml/min; Globulin 3.3 g/dL (2.2-4.2); Glucose 131 mg/dL (74-106); Lipase 31 U/L (13-75); Potassium 3.8 mmol/L (3.5-5.1); Protein, Total 6.5 g/dL (6.4-8.2); Sodium Level 141 mmol/L (136-145)
[2024-05-05 07:28] LABS: Red Blood Cells-Urine 10-25 SEEN /hpf (0-5)
[2024-05-05 07:29] LABS: Bacteria 1+ /hpf (None Seen); White Blood Cells 0-5 SEEN /hpf (0-5)
[2024-05-05 07:31] LABS: Mucous, Urine 1+ /hpf (<or=2+); Squamous Epithelial Cells - UA 0-5 SEEN /hpf (5-10)
--- NOTE | 2024-05-05 07:37 | CT_ITS ---
STUDY: CT ABDOMEN AND PELVIS WITHOUT CONTRAST REASON FOR EXAM: Female, 58 years old. Hematuria. Abdominal/bladder pain. Right-sided abdominal pain. RADIATION DOSAGE (If Supplied By Facility): CTDIvol = ( 6.29 ) mGy, DLP = ( 288.95 ) mGycm TECHNIQUE: Transaxial images were obtained from the dome of the diaphragm to the symphysis pubis without oral contrast, and without intravenous contrast. Sagittal and coronal images were reconstructed. Individualized dose optimization techniques were used for this CT. COMPARISON: None. FINDINGS: The visualized lung bases are unremarkable. The visualized portions of the heart are within normal limits. Normal liver. Normal gallbladder and extrahepatic biliary system. Normal spleen. Normal pancreas. Normal bilateral adrenal glands. Mild degree of right hydronephrosis and mild right nephric stranding. Punctate nonobstructive calculus is seen in the lower pole anterior portion of the right kidney. There is a 2.8 mm calculus at the right ureterovesical junction. Normal left kidney. Normal visualized stomach. Normal small intestine. Moderate amount of fecal material is seen in the colon. Sigmoid diverticulosis. There are surgical clips in the region of the appendix consistent with a prior appendectomy. There is scattered atherosclerotic calcification of the abdominal aorta, without a demonstrated aneurysm. Normal inferior vena cava. Normal retroperitoneum. Normal urinary bladder. Normal abdominal wall. Normal osseous structures. CT/Abdomen/Pelvis without Cont IMPRESSION: 2.8 mm calculus at the right ureterovesical junction causing mild degree of right hydronephrosis and right perinephric stranding. Sigmoid diverticulosis. Electronically Signed: Jose Eduardo Del Valle MD at 8:36 EDT ,
--- NOTE | 2024-05-05 07:55 | EX.ED.DYSGE1 ---
HPI History of Present Illness Chief Complaint: Abd Pain Informant: patient and friend Narrative Narrative: Patient is a 58-year-old female with past medical history of hypothyroidism as well as IBS. She states that she has not been drinking enough water over the last few days and has noticed mild irritation with urination. She states that she hydrated herself and symptoms seem to improve. However this morning she awoke and had pain in the right upper abdomen and had concerned that this may be related to worsening infection or kidney stone or her use of Ozempic and therefore comes in for evaluation [facility] Medical History (Updated 05/07/24 @ 04:[address] Lucho Vines, DO) Hypothyroidism Wears glasses Graves disease Fatty liver Diverticulosis History of IBS Non-smoker Adult ADHD Family history of colon cancer in father IBS (irritable bowel syndrome) Postablative hypothyroidism Thyroid disorder Anxiety and depression Home Medications ?Medication ?Instructions ?Recorded ?Last Taken ?Type albuterol sulfate 90 mcg/actuation 2 puff inhalation Q6H PRN 07/30/23 Unknown History aerosol inhaler shortness of breath or wheezing dextroamphetamine-amphetamine ER 15 mg PO DAILY 01/28/24 Unknown History 15 mg 24hr capsule,extend release semaglutide 0.25 mg or 0.5 mg (2 0.5 mg subcut QWEEK 01/28/24 04/29/24 History mg/3 mL) subcutaneous pen injector (Ozempic) thyroid (pork) 90 mg tablet 90 mg PO DAILY 01/28/24 Unknown History ([facility] Thyroid) cephalexin 500 mg capsule 500 mg PO TID 7 days #21 caps 05/05/24 Unknown Rx ketorolac 10 mg tablet 10 mg PO 4X/DAY PRN pain 5 days 05/05/24 Unknown Rx #20 tabs oxycodone-acetaminophen 5 mg-325 1 tab PO Q6H PRN pain 3 days #12 05/05/24 Unknown Rx mg tablet (Percocet) tabs tamsulosin 0.4 mg capsule (Flomax) 0.4 mg PO DAILY 14 days #14 caps 05/05/24 Unknown Rx Allergy/AdvReac Type Severity Reaction Status Date / Time No Known Allergies Allergy Verified 03/29/24 08:07 Family History (Updated 01/28/24 @ 10:40 by Mary Arias) Father Colorectal cancer Grandfather Myocardial infarction Colon cancer Grandmother Dementia Surgical History Hx of colonoscopy Hx of appendectomy History of laparotomy Hx of laparoscopy Social History current occupational status: employed Smoking Status: Never smoker alcohol intake: current details: social substance use type: does not use what type of physical activity do you participate in: walking seatbelt use: always do you feel safe at home: Yes additional social history: ROS ROS ED Constitutional Constitutional ED: Denies chills or fever(s) Eyes Eyes: Denies change in vision ENT ENT ED: Denies sore throat Cardiovascular Cardiovascular: Denies chest pain Respiratory/Chest Respiratory/Chest: Denies cough or dyspnea Gastrointestinal Gastrointestinal: Reports abdominal pain; Denies diarrhea, nausea or vomiting Genitourinary Genitourinary ED: Reports dysuria Musculoskeletal Musculoskeletal: Denies myalgias Integumentary Denies rash Neurologic Neurologic: Denies headache(s) Hematologic/Lymphatic Hematologic/Lymphatic: Denies easy bleeding or easy bruising EXAM Physical Exam Const Vital Signs: 05/05/24 06:00 Temperature 97.6 F L Temperature Source Oral Pulse Rate 55 L Respiratory Rate 16 Blood Pressure 149/84 H Blood Pressure Mean 105 Pulse Ox 100 Oxygen Delivery Method Room Air Positive well nourished and well developed General Appearance ED: well developed; Negative for pallor HEENT Reports moist mucous membranes HEENT Narrative: No tongue or lip swelling no oral lesions no airway edema or compromise No secondary changes in the posterior pharynx to suggest infection Eyes PERRL and EOMs intact bilaterally General Eye ED: Negative for scleral icterus Neck supple Chest Wall palpation of chest normal Resp normal respiratory effort and clear to auscultation bilaterally Cardio regular rate and regular rhythm GI non-distended GI Narrative: Abdomen is soft and nondistended with normal active bowel sounds. Patient has mild pain to palpation in the right upper abdomen without voluntary guarding or rigidity. Negative Payne sign. No pulsatile mass or fluid wave Auscultation: normoactive bowel sounds Palpation: soft Back/Spine Back/Spine Narrative: Mild right CVA pain noted Extremity normal to inspection Neuro oriented x3, CN's II-XII intact bilaterally and no sensory deficits noted Sensorium / Orientation: alert Motor Exam: strength 5/5 throughout Psych mental status grossly normal Skin no rashes or lesions noted General Skin Exam: Negative for jaundice or pallor MDM MDM MDM Narrative Medical decision making narrative: Patient presented to the ER hypertensive otherwise with stable vitals. He reported an atypical right back/abdominal pain that been occurring over the past few weeks without trauma or excessive activity. Differential diagnosis is for UTI versus pyelonephritis versus biliary colic versus acute cholecystitis versus pancreatitis. Secondary to his basic blood work was obtained. Labs showed no signs of acute kidney injury or urosepsis. However her urine did have blood present which is concerning for potential kidney stone so a CT scan without contrast was obtained. This confirmed a small stone but as patient is not having BENOIT or urosepsis and her pain is controlled there is no need for further workup or admission and she is otherwise safe for discharge History & Record Review Discussion w/independent historian: Patient and Friend Lab Data Attestation: I reviewed the patient's lab results. Labs: Laboratory Results - last 24 hr 05/05/24 05/05/24 06:38 06:48 WBC 8.4 RBC 4.43 Hgb 13.5 Hct 41.0 MCV 92.6 MCH 30.5 MCHC 32.9 RDW Std Deviation 41.6 RDW Coeff of Lidya 12.2 Plt Count 217 MPV 11.0 Immature Gran % (Auto) 0.400 Neut % (Auto) 74.5 H Lymph % (Auto) 19.9 Preble % (Auto) 4.0 Eos % (Auto) 0.8 Baso % (Auto) 0.4 Absolute Neuts (auto) 6.3 Absolute Lymphs (auto) 1.67 Nucleated RBC % 0 Sodium 141 Potassium 3.8 Chloride 108 H Carbon Dioxide 26.0 Anion Gap 7 BUN 23 H Creatinine 0.95 Estim Creat Clear Calc 54.38 Est GFR (MDRD) Af Amer 77 Est GFR (MDRD) Non-Af 64 BUN/Creatinine Ratio 24.3 H Glucose 131 H Calcium 8.7 Total Bilirubin 0.30 Direct Bilirubin 0.13 AST 20 ALT 28 Alkaline Phosphatase 86 Total Protein 6.5 Albumin 3.2 Globulin 3.3 Lipase 31 Urine Color Yellow Urine Clarity Clear Urine pH 6.5 Ur Specific [place] 1.015 Urine Protein Negative Urine Glucose (UA) Normal Urine Ketones Negative Urine Occult Blood 250 H Urine Nitrite Negative Urine Bilirubin Negative Urine Urobilinogen Normal Ur Leukocyte Esterase 25 H Urine RBC 10-25 SEEN Urine WBC 0-5 SEEN Ur Squamous Epith Cells 0-5 SEEN Urine Bacteria 1+ Urine Mucus 1+ Radiography Diagnostic Testing: Clinical Impression(s) from Imaging Studies Abdomen/Pelvis CT 05/05/24 07:37 IMPRESSION: 2.8 mm calculus at the right ureterovesical junction causing mild degree of right hydronephrosis and right perinephric stranding. Sigmoid diverticulosis. Electronically Signed: Jose Eduardo Del Valle MD at 8:36 EDT , Discharge Plan Triage Chief Complaint: Abd Pain ED Provider: Lucho Vines Dx/Rx/DC Orders Clinical Impression: Renal colic, Kidney stone on right side, IBS (irritable bowel syndrome), Hypothyroidism Instructions: ED Kidney Stone with Pain Prescriptions: New ketorolac 10 mg tablet 10 mg PO 4X/DAY PRN (Reason: pain) 5 Days Qty: 20 0RF tamsulosin [Flomax] 0.4 mg capsule 0.4 mg PO DAILY 14 Days Qty: 14 0RF cephalexin 500 mg capsule 500 mg PO TID 7 Days Qty: 21 0RF oxycodone-acetaminophen [Percocet] 5-325 mg tablet 1 tab PO Q6H PRN (Reason: pain) 3 Days Qty: 12 0RF No Action albuterol sulfate 90 mcg/actuation HFA aerosol inhaler 2 puff inhalation Q6H PRN (Reason: shortness of breath or wheezing) dextroamphetamine-amphetamine 15 mg capsule,extended release 24hr 15 mg PO DAILY thyroid (pork) [[facility] Thyroid] 90 mg tablet 90 mg PO DAILY Ozempic 0.25 mg or 0.5 mg (2 mg/3 mL) pen injector 0.5 mg subcut QWEEK Primary Care Provider: Negra Dasilva Referrals: Piyush Whitlock MD [Med Staff - Active Staff] - Negra Dasilva DO [Primary Care Provider] - Activity Restrictions/Additional Instructions: Your workup showed a 2.8 mm kidney stone which correlates with the cause of your symptoms. Keep yourself well-hydrated and take the medication as directed to help with symptom control. Follow-up with urology for repeat evaluation and return to the ER should you develop a fever over 100.4 or your pain is not controlled with the prescribed medications Print Language: Uzbek Disposition Disposition: Home, Self Care Discharge Date/Time: 05/05/24 09:23
[2024-05-05] MEDS: 0.9% Normal Saline (1000mL) 1,000 ML 999 ML IV (08:17)
[2024-05-05 09:21] VITALS: BP 118/74; PULSE 62; RESP 15; TEMP 37.1; O2SAT 99
== END 2024-05-05 09:23 | disposition home or self-care (01) ==
PROVIDERS: Emergency Provider Emergency Medicine; PCP Family Medicine; Visit Provider Emergency Medicine
DX: N13.2 Hydronephrosis with renal and ureteral calculous obstruction (principal); N23 Unspecified renal colic; Z80.0 Family history of malignant neoplasm of digestive organs; K58.9 Irritable bowel syndrome, unspecified; E03.9 Hypothyroidism, unspecified
CPT/HCPCS: 74176; 80048; 80076; 81001; 83690; 85025; 87086; 87088; 99283; A4216

== ENCOUNTER → 2024-10-10 | Outpatient (CLI) | payer OTHER, SELFPAY ==
--- NOTE | 2024-10-10 10:03 | RAD_ITS ---
INDICATION: COUGH EXAMINATION/TECHNIQUE: X-RAY - XR Chest 2 Views COMPARISON: October 22, 2022 FINDINGS: LINES/DEVICES: None. LUNGS: No consolidation, edema or effusion. No pneumothorax. MEDIASTINUM AND CARDIOVASCULAR STRUCTURES: Cardiac silhouette not enlarged. Central airways and mediastinal contour are unremarkable. BONES AND SOFT TISSUES: Unremarkable. RAD/Chest PA and Lateral IMPRESSION: No radiographic evidence of acute cardiopulmonary disease. Electronically Signed: nAai Arias MD at 10:29 EST ,
== END | disposition home or self-care (01) ==
PROVIDERS: PCP Family Medicine; Referring Provider Family Medicine; Visit Provider Family Medicine
DX: R05.9 Cough, unspecified (principal)
CPT/HCPCS: 71046

== ENCOUNTER 2025-04-18 13:18 | Emergency (ER) | payer OTHER, SELFPAY ==
[2025-04-18 13:19] VITALS: BP 134/85; PULSE 102; RESP 18; TEMP 36.4; O2SAT 98; BMI 24.4
--- NOTE | 2025-04-18 13:28 | EX.ED.GENINJ ---
HPI History of Present Illness Chief Complaint: Laceration Detail of Chief Complaint: Laceration dorsal side PIP joint right index finger Informant: patient Onset/Context/Timing Onset: Today and Hours Mechanism/Context: Blunt Injury Location: Previously described Current Severity: Mild Maximum Severity: Moderate Worsened by: Initial injury and bending Relieved by: Keeping straight and pressure Associated Symptoms Associated Symptoms: Negative for Parasthesias, Weakness, Loss of function, Inability to ambulate or Loss of consciousness Narrative Narrative: Patient is 59-year-old [id number] woman who presents with laceration to the right index finger over the PIP joint. Patient states she was closing the gate containing her horses. She smashed her finger. Sustained a laceration on the dorsal side of her right index finger. She denies paresthesia, anesthesia Medicus. She is not on an anticoagulant or antithrombotic. She does have history of hypothyroidism, irritable bowel and allergic rhinitis. Tetanus Immunization: 5-10 years Prior similar symptoms: No Recent Illness/Hospitalization: No [facility]SH [facility] Medical History Allergic rhinosinusitis Hypothyroidism Wears glasses Graves disease Fatty liver Diverticulosis History of IBS Non-smoker Adult ADHD Family history of colon cancer in father IBS (irritable bowel syndrome) Postablative hypothyroidism Thyroid disorder Anxiety and depression Home Medications ?Medication ?Instructions ?Recorded ?Last Taken ?Type albuterol sulfate 90 mcg/actuation 2 puff inhalation Q6H PRN 07/30/23 Unknown History aerosol inhaler shortness of breath or wheezing semaglutide 0.25 mg or 0.5 mg (2 0.5 mg subcut QWEEK 01/28/24 04/29/24 History mg/3 mL) subcutaneous pen injector (Ozempic) thyroid (pork) 90 mg tablet 90 mg PO DAILY 01/28/24 Unknown History ([place] [facility] Thyroid) dextroamphetamine-amphetamine ER 1 cap PO QAM 04/17/25 Unknown History 20 mg 24hr capsule,extend release fluticasone furoate 100 1 ea inhalation QDAY 04/17/25 Unknown History mcg-vilanterol 25 mcg/dose inhalation powder (Breo Ellipta) Allergy/AdvReac Type Severity Reaction Status Date / Time No Known Allergies Allergy Verified 04/18/25 13:19 Family History (Updated 01/28/24 @ 10:40 by Mary Arias) Father Colorectal cancer Grandfather Myocardial infarction Colon cancer Grandmother Dementia Surgical History Hx of colonoscopy Hx of appendectomy History of laparotomy Hx of laparoscopy Social History current occupational status: employed Smoking Status: Never smoker alcohol intake: current details: social substance use type: does not use what type of physical activity do you participate in: walking seatbelt use: always do you feel safe at home: Yes additional social history: ROS ROS ED Constitutional Constitutional ED: Denies chills, fever(s) or subjective Integumentary Reports other Details: Laceration 1 cm Neurologic Neurologic: Denies paresthesias Hematologic/Lymphatic Hematologic/Lymphatic: Denies easy bleeding or easy bruising EXAM Physical Exam Const Vital Signs: 04/18/25 13:19 Temperature 97.5 F L Temperature Source Temporal Pulse Rate 102 H Respiratory Rate 18 Blood Pressure 134/85 H Blood Pressure Mean 101 Pulse Ox 98 Oxygen Delivery Method Room Air Positive well nourished and well developed General Appearance ED: well developed and NAD HEENT HEENT Narrative: Grossly unremarkable Eyes PERRL and EOMs intact bilaterally Neck full ROM Resp normal respiratory effort Cardio regular rhythm Rate: regular rate Extremity Negative for normal to inspection Extremity Narrative: Patient has normal capillary fill. Normal sensation. There is no subungual hematoma. There is a laceration dorsal surface of the right index finger over the PIP joint. Patient is able to flex and extend. There is no laxity of collateral ligaments. There is no swelling or ecchymosis noted. Length of laceration 1 cm. Neuro oriented x3, CN's II-XII intact bilaterally and moves all extremities Psych mental status grossly normal and thought process normal MDM MDM MDM Narrative Medical decision making narrative: Wound is amenable to closure with Dermabond. Wound was cleansed. Using Dermabond the laceration was closed. She tolerated procedure well. Tetanus is up-to-date. In my opinion imaging is not indicated Patient was examined again after the Dermabond set. There is no laxity the collateral ligaments. Discharge Plan Triage Chief Complaint: Laceration ED Provider: Amador George Dx/Rx/DC Orders Clinical Impression: Laceration of right index finger, Postablative hypothyroidism Instructions: ED Laceration, Extremity: Skin Glue Prescriptions: No Action albuterol sulfate 90 mcg/actuation HFA aerosol inhaler 2 puff inhalation Q6H PRN (Reason: shortness of breath or wheezing) thyroid (pork) [[place] Thyroid] 90 mg tablet 90 mg PO DAILY Ozempic 0.25 mg or 0.5 mg (2 mg/3 mL) pen injector 0.5 mg subcut QWEEK dextroamphetamine-amphetamine 20 mg capsule,extended release 24hr 1 cap PO QAM fluticasone furoate-vilanterol [Breo Ellipta] 100-25 mcg/dose blister with device 1 ea inhalation QDAY Primary Care Provider: Negra Dasilva Referrals: Negra Dasilva DO [Primary Care Provider] - As Needed Print Language: Micronesian Disposition Disposition: Home, Self Care
--- OUTSIDE RECORDS SUMMARY | 2025-04-18 21:54 | XMS RPT_ITS | CCD ---
Author Organization [facility] CliniSyne Care Team Providers Care Healthcare Administrative Assistant Name Role Phone JUVENCIO GONZALEZ Unavailable Unavailable JUVENCIO GONZALEZ Unavailable Unavailable ISA BRAN Attending Unavailable ISA BRAN Primary Care Unavailable ISA BRAN Admitting Unavailable Dr. Negra Dasilva Primary Care Provider [phone] Dr. Negra Dasilva Referring Provider Dr. Noel Arias Attending Provider Dr. Deanne Tatum Attending Provider Dr. Negra Dasilva Primary Care Provider [phone] Mary Arias Attending Provider Unavailable Dr. Zane Mcmanus Primary Care Provider Mary Arias Attending Provider Unavailable Dr. Negra Dasilva DO Primary Care Provider [phone] Dr. Negra Dasilva DO Referring Provider [phone] Osbaldo Miller Attending Provider Osbaldo Miller Attending Unavailable Negra Dasilva Referring Unavailable MalysNegra Primary Care Unavailable MalysNegra Attending Unavailable Malys, Negra Referring Unavailable Malys, Negra Primary Care Unavailable MalysNegra Primary Care Unavailable Lucho Vines Attending Unavailable Allergies Allergy Classification Reported Allergen(s) Allergy Type Date of Onset Reaction(s) Facility (1 source) Seasonal allergy; Translations: [SEASONAL ALLERGIES] Propensity to adverse reactions (disorder) 8 AOF [facility] Repository Medications Current Medications Medication Drug Class(es) Dates Sig (Normalized) Sig (Original) [id number] actuat albuterol 0.09 mg/actuat metered dose inhaler (13 sources) beta2-Adrenergic Agonist Start: 10-27-2021 End: 07-30-2023 Albuterol Sulfate 90 mcg/actuation HFA aerosol inhaler Active 2 NMA INHALATION EVERY 6 HOURS as needed for shortness of breath or wheezing July 30, 2023 12:00am Start: 10-27-2021 End: 07-30-2023 take 1 puff(s) by inhalation every six hours Albuterol Sulfate Active 2 PUFF INHALATION EVERY 6 HOURS July 30, 2023 12:00am 24 hr amphetamine aspartate 5 mg / amphetamine sulfate 5 mg / dextroamphetamine saccharate 5 mg / dextroamphetamine sulfate 5 mg extended release oral capsule (3 sources) Central Nervous System Stimulant Start: 04-17-2025 Dextroamphetamine-Amphetamin e 20 mg capsule,extended release 24hr Active 1 NMA PO EVERY MORNING April 17, 2025 12:00am Start: 01-28-2024 End: 04-17-2025 take 1 capsule by mouth once daily Dextroamphetamine-Amphetamine 15 mg capsule,extended release 24hr Discontinued 15 mg PO DAILY January 28, 2024 12:00am April 17, 2025 2:44pm 30 actuat fluticasone furoate 0.1 mg/actuat / vilanterol 0.025 mg/actuat dry powder inhaler (1 source) Corticosteroid, beta2-Adrenergic Agonist Start: 04-17-2025 Fluticasone Furoate-Vilanterol (Breo Ellipta) 100-25 mcg/dose blister with device Active 1 NMA INHALATION daily April 17, 2025 12:00am Semaglutide (2 sources) Start: 01-28-2024 Semaglutide (O zempic) 0.25 mg or 0.5 mg (2 mg/3 mL) pen injector Active 0.5 mg SC EVERY WEEK January 28, 2024 12:00am Start: 01-28-2024 Semaglutide (O zempic) 0.25 mg or 0.5 mg (2 mg/3 mL) pen injector Active 0.5 MG SC EVERY WEEK January 28, 2024 12:00am Thyroid (Pork) ([place] Thyroid) 90 mg tablet (2 sources) Start: 01-28-2024 take 1 tablet by mouth once daily Thyroid (Pork) ([place] Thyroid) 90 mg tablet Active 90 mg PO DAILY January 28, 2024 12:00am Start: 01-28-2024 take 1 tablet by mouth once da farhad Thyroid (Pork) ([place] Thyroid) 90 mg tablet Active 90 MG PO DAILY January 28, 2024 12:00am Completed/Discontinued Medications Medication Drug Class(es) Dates Sig (Normalized) Sig (Original) acetaminophen 325 mg / oxyCODONE hydrochloride 5 mg oral tablet (1 source) Opioid Agonist Start: 05-05-2024 End: 04-17-2025 Oxycodone-Acetamin ophen (Percocet) 5-325 mg tablet Discontinued 1 {tbl} PO EVERY 6 HOURS as needed for pain 12 May 05, 2024 April 17, 2025 2:44pm amoxicillin 875 mg / clavulanate 125 mg oral tablet (4 sources) Penicillin-class Antibacterial Start: 07-30-2023 End: 08-09-2023 Amoxicillin-Pot Clavulanate 875-125 mg tablet Discontinued 1 {tbl} PO Q12H 20 July 30, 2023 12:00am August 08, 2023 12:00am August 09, 2023 12:04am Start: 07-30-2023 End: 08-09-2023 take 1 tablet by mouth every twelve hours Amoxicillin-Pot Clavulanate Discontinued 1 TABLET PO Q12H 04 09July 30, 2023 12:00am August 09, 2023 12:04am benzonatate 100 mg oral capsule (9 sources) Non-narcotic Antitussive Start: 10-27-2021 End: 11-01-2021 take 1 capsule by mouth three times daily Benzonatate 100 mg capsule Discontinued 100 mg PO THREE TIMES A DAY 15 5 October 27, 2021 1:00am October 31, 2021 1:00am November 01, 2021 1:02am 120 actuat budesonide 0.08 mg/actuat / formoterol fumarate 0.0045 mg/actuat metered dose inhaler (4 sources) Corticosteroid, beta2-Adrenergic Agonist Start: 07-30-2023 End: 01-28-2024 Budesonide-Formote rol (Symbicort) 80-4.5 mcg/actuation HFA aerosol inhaler Discontinued 2 NMA INHALATION DAILY July 30, 2023 12:00am January 28, 2024 10:41am Start: 07-30-2023 End: 01-28-2024 take 1 puff(s) by inhalation once daily Budesonide-Formoterol (Symbicort) 80-4.5 mcg/actuation HFA aerosol inhaler Discontinued 2 PUFF INHALATION DAILY July 30, 2023 12:00am January 28, 2024 10:41am cephalexin 500 mg oral capsule (1 source) Cephalosporin Antibacterial Start: 05-05-2024 End: 04-17-2025 take 1 capsule by mouth three times daily Cephalexin 500 mg capsule Discontinued 500 mg PO THREE TIMES A DAY 05 06May 05, 2024 12:00am April 17, 2025 2:44pm codeine phosphate 1.5 mg/ml / guaiFENesin 45 mg/ml oral solution (7 sources) Opioid Agonist Start: 10-22-2022 End: 07-30-2023 take 1 mL by mouth every six hours as needed for cough Codeine-Guaifenesi n 7.5-225 mg/5 mL liquid Discontinued 7.5 mL PO EVERY 6 HOURS as needed for cough 150 5 October 22, 2022 1:00am July 30, 2023 10:08am Start: 10-22-2022 End: 07-30-2023 take 1 mL by mouth every six hours Codeine-Guaifenesin Discontinued 7.5 ML PO EVERY 6 HOURS 150 5 October 22, 2022 1:00am July 30, 2023 10:08am escitalopram 10 mg oral tablet (18 sources) Serotonin Reuptake Inhibitor Start: 01-18-2019 End: 06-05-2022 take 1 tablet by mouth once daily Escitalopram Oxalate (Lexapro) 10 mg tablet Discontinued 10 mg PO DAILY November 07, 2020 1:00am June 05, 2022 8:21am hydroCHLOROthiazide 25 mg / triamterene 37.5 mg oral capsule (9 sources) Potassium-spari ng Diuretic, Thiazide Diuretic Start: 06-05-2022 End: 11-25-2022 Triamterene-[place] chlorothiazid 37.5-25 mg capsule Discontinued 1 NMA PO DAILY as needed June 05, 2022 12:00am November 25, 2022 1:32pm Start: 06-05-2022 End: 11-25-2022 take 1 capsule by mouth once daily Triamterene-Hydrochlorothiazid Discontin ued 1 CAP PO DAILY June 05, 2022 12:00am November 25, 2022 1:32pm ibuprofen 600 mg oral tablet (9 sources) Nonsteroidal Anti-inflammatory Drug Start: 10-25-2019 End: 11-07-2020 take 1 tablet by mouth every six hours as needed for pain Ibuprofen 600 MG tablet Discontinued 600 mg PO EVERY 6 HOURS NEEDED as needed for pain October 25, 2019 1:00am November 07, 2020 3:14pm ketorolac tromethamine 10 mg oral tablet (1 source) Nonsteroidal Anti-inflammatory Drug, Cyclooxygenase Inhibitor Start: 05-05-2024 End: 04-17-2025 take 1 tablet by mouth four times daily as needed for pain Ketorolac 10 mg tablet Discontinued 10 mg PO 4 TIMES DAILY as needed for pain 04 04May 05, 2024 9:01am April 17, 2025 2:44pm levothyroxine sodium 0.088 mg oral tablet (9 sources) l-Thyroxine Start: 04-25-2022 End: 07-30-2023 take 1 tablet by mouth once daily Levothyroxine 88 mcg tablet Discontinued 88 ug PO DAILY April 25, 2022 12:00am July 30, 2023 10:08am liothyronine sodium 0.005 mg oral tablet (9 sources) l-Triiodothyronine Start: 10-25-2019 End: 07-30-2023 take 1 tablet by mouth once daily Liothyronine 5 MCG tablet Discontinued 5 ug PO DAILY October 25, 2019 1:00am July 30, 2023 10:08am ondansetron 4 mg oral tablet (7 sources) Serotonin-3 Receptor Antagonist Start: 10-22-2022 End: 07-30-2023 take 1 tablet by mouth every six hours as needed for nausea and vomiting Ondansetron Hcl 4 mg tablet Discontinued 4 mg PO EVERY 6 HOURS as needed for nausea and vomiting October 22, 2022 1:00am July 30, 2023 10:08am 24 hr phentermine 3.75 mg / topiramate 23 mg extended release oral capsule (9 sources) Sympathomimetic Amine Anorectic Start: 01-18-2019 End: 11-07-2020 Phentermine-Topir amate (Qsymia) 3.75-23 mg capsule, ER multiphase 24 hr Discontinued 1 NMA PO DAILY January 18, 2019 1:00am November 07, 2020 3:13pm potassium chloride 20 meq extended release oral tablet (7 sources) Start: 10-22-2022 End: 07-30-2023 take 1 tablet by mouth twice daily Potassium Chloride 20 mEq tablet extended release Discontinued 20 meq PO TWICE A DAY October 22, 2022 1:00am July 30, 2023 10:14am predniSONE 50 mg oral tablet (9 sources) Start: 10-27-2021 End: 11-01-2021 take 1 tablet by mouth once daily Prednisone 50 mg tablet Discontinued 50 mg PO DAILY 03 20October 27, 2021 1:00am October 31, 2021 1:00am November 01, 2021 1:02am promethazine hydrochloride 25 mg oral tablet (9 sources) Phenothiazine Start: 06-05-2022 End: 11-25-2022 take 1 tablet by mouth every six hours as needed Promethazine 25 mg tablet Discontinued 25 mg PO EVERY 6 HOURS as needed June 05, 2022 12:00am November 25, 2022 1:32pm tamsulosin hydrochloride 0.4 mg oral capsule (1 source) alpha-Adrenergic Remedios Start: 05-05-2024 End: 04-17-2025 take 1 capsule by mouth once daily Tamsulosin (Flomax) 0.4 mg capsule Discontinued 0.4 mg PO DAILY May 05, 2024 12:00am April 17, 2025 2:44pm Thyroid (Pork) ([place] Thyroid) 60 mg tablet (4 sources) Start: 07-30-2023 End: 01-28-2024 take 1 tablet by mouth once daily Thyroid (Pork) ([place] Thyroid) 60 mg tablet Discontinued 60 mg PO DAILY July 30, 2023 10:15am January 28, 2024 10:41am Start: 07-30-2023 End: 01-28-2024 take 1 tablet by mouth once daily Thyroid (Pork) ([place] Thyroid) 60 mg tablet Discontinued 60 MG PO DAILY July 30, 2023 10:15am January 28, 2024 10:41am Start: 07-30-2023 take 1 tablet by gregorio once daily Thyroid (Pork) ([place] Thyroid) 60 mg tablet Active 60 MG PO DAILY July 30, 2023 9:15am thyroid (senior care) 60 mg oral tablet (13 sources) Start: 07-30-2023 End: 07-30-2023 Thyroid (Pork) ([place] Thyro id) 60 mg tablet Discontinued mg PO July 30, 2023 12:00am July 30, 2023 10:15am Start: 01-18-2019 End: 04-25-2022 take 1 tablet by mouth once daily Thyroid (Pork) ([place] Thyroid) 90 mg tablet Discontinued 90 mg PO DAILY January 18, 2019 1:00am April 25, 2022 2:23pm Problems Active Problems Problem Classification Problem Date Documented Da te Episodic/Chronic Administrative/social admission (1 source) Persons encountering health services in other specified circumstances; Translations: [Other reasons for seeking consultation] Episodic Complications of surgical procedures or medical care (12 sources) Postprocedural hypothyroidism; Translations: [Postablative hypothyroidism] Onset: 10-16-2018 Chronic Fluid and electrolyte disorders (14 sources) Dehydration; Translations: [Dehydration] 10-30-2022 Episodic Mood disorders (9 sources) Dysthymia; Translations: [Dysthymic disorder] 11-10-2020 Chronic Noninfectious gastroenteritis (7 sources) Gastroenteritis; Translations: [Noninfective gastroenteritis and colitis, unspecified] 10-30-2022 Episodic Nutritional deficiencies (1 source) Vitamin D deficiency, unspecified; Translations: [Vitamin D deficiency, unspecified] Onset: 10-16-2018 Chronic Other gastrointestinal disorders (9 sources) Irritable bowel syndrome; Translations: [Irritable bowel syndrome without diarrhea] 06-05-2022 Chronic Other gastrointestinal disorders (1 source) Irritable bowel syndrome without diarrhea; Translations: [Irritable bowel syndrome] Chronic Other screening for suspected conditions (not mental disorders or infectious disease) (4 sources) Other abnormal and inconclusive findings on diagnostic imaging of breast; Translations: [Encounter for screening for malignant neoplasm of colon] Onset: 10-16-2018 Episodic Other upper respiratory infections (4 sources) Acute sinusitis; Translations: [Acute sinusitis, unspecified] 07-30-2023 Episodic Residual codes; unclassified (1 source) Family history of cancer of colon; Translations: [Family history of malignant neoplasm of digestive organs] 03-29-2024 Episodic Sprains and strains (9 sources) Sprain of ankle; Translations: [Sprain of unspecified ligament of left ankle, initial encounter] 10-26-2019 Episodic Thyroid disorders (2 sources) Thyrotoxicosis with diffuse goiter without thyrotoxic crisis or storm; Translations: [Hypothyroidism] Onset: 10-16-2018 05-13-2024 Chronic Unclassified (1 source) Cough, unspecified; Translations: [Cough, unspecified] Onset: 11-14-2024 Past or Other Problems Problem Classification Problem Date Documented Da te Episodic/Chronic Calculus of urinary tract (3 sources) Renal colic; Translations: [Unspecified renal colic] Onset: 05-13-2024 05-13-2024 Episodic Results Test Name Value Interpretation Reference Range Facility Urgent Care Visit Reporton 0 04-17-2025 Urgent Care Visit Report [facility] [address], [address] [place] [address] OFFICE VISIT Date of Service: 04/17/25 MR#: [id number] Acct: [id number] Name: ISA URIBE Rep #: [id number] : 1965 Provider: GUALBERTO Jang Age/Sex: 59/F Location: [facility] Status: Signed Intake Vital Signs 05/05/24 06:00 04/17/25 14:39 Height 5 ft 4 in 5 ft 4 in Weight: 137 lb BMI 23.5 BP 110/70 Position Sitting Pulse 87 Temp 98.4 F Temp Source Oral Pulse Oximetry (%) 99 Oxygen Delivery Method room air Intake Visit Reasons: SEASONAL ALLERGIES Accompanied by: Self Allergies No Known Allergies Allergy (Verified 04/17/25 14:44) Medications ???Medication ???Instructions ???Recorded ???Confirmed ???Type albuterol sulfate 90 mcg/actuation 2 puff inhalation Q6H PRN 05/05/24 History aerosol inhaler shortness of breath or wheezing semaglutide 0.25 mg or 0.5 mg (2 0.5 mg subcut QWEEK 01/28/2404/17 History mg/3 mL) subcutaneous pen injector (Ozempic) thyroid (pork) 90 mg tablet 90 mg PO DAILY 01/28/24 04/17/25 H istory ([place] Thyroid) dextroamphetamine-amphetamin e ER 1 cap PO QAM 04/17/25 04/17/25 His tory 20 mg 24hr capsule,extend release fluticasone furoate 100 1 ea inhalation QDAY 04/17/2501/10 History mcg-vilanterol 25 mcg/dose inhalation powder (Breo Ellipta) Nurse's Note: Patient here for allergies. Patient would like to have a Kenalog shot. [facility] Medical History (Updated 04/17/25 @ 15:30 by Osbaldo Gaston PA, PA) Allergic rhinosinusitis Hypothyroidism Wears glasses Graves disease Fatty liver Diverticulosis History of IBS Non-smoker Adult ADHD Family history of colon cancer in father IBS (irritable bowel syndrome) Postablative hypothyroidism Thyroid disorder Anxiety and depression Surgical History Hx of colonoscopy Hx of appendectomy History of laparotomy Hx of laparoscopy Family History (Updated 01/28/24 @ 10:40 by Mary Arias) Father Colorectal cancer Grandfather Myocardial infarction Colon cancer Grandmother Dementia Social History current occupational status: employed Smoking Status: Never smoker alcohol intake: current details: social substance use type: does not use what type of physical activity do you participate in: walking seatbelt use: always do you feel safe at home: Yes additional social history: HPI HPI Details: ISA URIBE, is a 59 F who presents to the office today for her annual rhinosinusitis symptoms/seasonal allergies, requesting injection of Kenalog to address her symptoms at this time. Patient notes every spring her PCP will typically give her an injection, which will control her symptoms for a couple of months she so states. She currently notes no complaints of fever, chills, sweats, facial/sinus pressure, lightheadedness/dizziness, nausea/vomiting and no complaints of chest pressure or shortness of breath/wheeze. No nkrt-mni-nnvkceo products been taken to assist. No other associated symptoms and no other alleviating/aggravating factors. ROS Const Constitutional: No other (As above) Exam Const General: cooperative, healthy appearing and no acute distress Nutritional Appearance: average body habitus Orientation: alert and awake [facility] Head: normal to inspection Ears: hearing grossly normal bilaterally, external ears normal, TM's normal bilaterally and EAC's normal Nose: external nose normal, nares normal, septum normal and no nasal discharge Face and sinus: normal facial exam, sinuses nontender and face symmetric Mouth: oral mucosae normal, lip normal, tongue normal, oropharynx normal and moist mucous membranes Throat: posterior oropharynx normal, tonsils normal, uvula midline and no postnasal drainage Eyes General: appearance normal, both eyes and all related structures Neck Neck: normal visual inspection, no lymphadenopathy, no meningeal signs and supple Chest Chest palpation inspection: normal inspection of the chest Resp Effort Inspection: normal respiratory effort and able to speak in complete sentences Cardio Rate: regular rate Pulses: radial pulses present GI Inspection: normal to inspection Skin General: no rashes or lesions noted Neuro General: patient alert and patient awake Cognition: normal cognition Speech: speech normal Extrem General: normal to inspection Psych Appearance: grossly normal Mental Status: mental status grossly normal Mood: congruent mood Affect: normal affect Speech and Movement: speech and movement normal Attitude: cooperative Office Procedures Ortho Injections Injections Is this a patient provided medication (more content not included)... Normal [facility] Chest PA and Lateralon 10-10 Chest PA and Lateral [facility] Imaging [facility] [address] [place] [id number] Chest PA and Lateral MR#: [id number] Acct: [id number] Name: ISA URIBE Rep #: [id number] : 1965 F 59 From: Anai Arias MD PCP: Dr. Negra Dasilva DO Status: REG CLI Study: Chest PA and Lateral Date of Exam: 10/10/24 Exam# [id number] Ordering Dr: Negra Dasilva DO :[id number] INDICATION: COUGH EXAMINATION/TECHNIQUE: X-RAY - XR Chest 2 Views COMPARISON: October 22, 2022 FINDINGS: LINES/DEVICES: None. LUNGS: No consolidation, edema or effusion. No pneumothorax. MEDIASTINUM AND CARDIOVASCULAR STRUCTURES: Cardiac silhouette not enlarged. Central airways and mediastinal contour are unremarkable. BONES AND SOFT TISSUES: Unremarkable. RAD/Chest PA and Lateral IMPRESSION: No radiographic evidence of acute cardiopulmonary disease. Electronically Signed: Anai Arias MD at 10:29 EST , CC: Dr. Negra Dasilva DO Costume Technician: Signed Normal [facility] Urine Cultureon 05-07-2024 [facility] Below infection leve l. Mixed Gram Positive Organisms Mittie Count <1000 MIXC Mixed contaminants. Submit a new specimen if indicated. Normal [facility] Comment on above: Performed By: #### M 100.2200 #### [facility] [address] [place], [place], [id number] Abdomen/Pelvis without Conto n 05-05-2024 Abdomen/Pelvis without Cont [facility] Imaging Services [address] [place], [place] [address] Abdomen/Pelvis without Cont MR#: [id number] Acct: [id number] Name: ISA URIBE Rep #: [id number] : 1965 F 58 From: Jose Eduardo llanos MD PCP: Dr. Negra Dasilva DO Status: REG ER Study: Abdomen/Pelvis without Cont Date of Exam: 04/17 Exam# [id number] Ordering Dr: Lucho Vines DO :[id number] STUDY: CT ABDOMEN AND PELVIS WITHOUT CONTRAST REASON FOR EXAM: Female, 58 years old. Hematuria. Abdominal/bladder pain. Right-sided abdominal pain. RADIATION DOSAGE (If Supplied By Facility): CTDIvol = ( 6.29 ) mGy, DLP = ( 288.95 ) mGycm TECHNIQUE: Transaxial images were obtained from the dome of the diaphragm to the symphysis pubis without oral contrast, and without intravenous contrast. Sagittal and coronal images were reconstructed. Individualized dose optimization techniques were used for this CT. COMPARISON: None. FINDINGS: The visualized lung bases are unremarkable. The visualized portions of the heart are within normal limits. Normal liver. Normal gallbladder and extrahepatic biliary system. Normal spleen. Normal pancreas. Normal bilateral adrenal glands. Mild degree of right hydronephrosis and mild right nephric stranding. Punctate nonobstructive calculus is seen in the lower pole anterior portion of the right kidney. There is a 2.8 mm calculus at the right ureterovesical junction. Normal left kidney. Normal visualized stomach. Normal small intestine. Moderate amount of fecal material is seen in the colon. Sigmoid diverticulosis. There are surgical clips in the region of the appendix consistent with a prior appendectomy. There is scattered atherosclerotic calcification of the abdominal aorta, without a demonstrated aneurysm. Normal inferior vena cava. Normal retroperitoneum. Normal urinary bladder. Normal abdominal wall. Normal osseous structures. CT/Abdomen/Pelvis without Cont IMPRESSION: 2.8 mm calculus at the right ureterovesical junction causing mild degree of right hydronephrosis and right perinephric stranding. Sigmoid diverticulosis. Electronically Signed: Jose Eduardo Del Valle MD at 8:36 EDT Reading Location ID and State: [address] [place] [address] , Service support , CC: Dr. Negra Dasilva DO; Lucho Vines DO Costume Technician: Signed Normal [facility] Basic Metabolic Profile (BMP )on 05-05-2024 BUN/CRE 24.3 RATIO High 09-04 [facility] Comment on above: Performed By: #### L 100.0100, L500.2500, L500.3400, L501.2450 #### [facility] [address] [place], [address] CA,Total 8.7 mg/dL Normal 8.5-10.1 [facility] Comment on above: Performed By: #### L 100.0100, L500.2500, L500.3400, L501.2450 #### [facility] [address] [place], [address] Chloride [Moles/Vol] 108 mmol/L High 98-107 [facility] Comment on above: Performed By: #### L 100.0100, L500.2500, L500.3400, L501.2450 #### [facility] [address] [place], [address] CO2 [Moles/Vol] 26.0 mmol/L Normal 21.0-32.0 [facility] Comment on above: Performed By: #### L 100.0100, L500.2500, L500.3400, L501.2450 #### [facility] [address] [place], [address] Creatinine [Mass/Vol] 0.95 mg/dL Normal 0.55-1.02 [facility] Comment on above: Result Comment: The validity of the calculated GFR GFRAA in patients over 70 years has not been determined. Clinical correlation is essential. Performed By: #### L 100.0100, L500.2500, L500.3400, L501.2450 #### [facility] [address] [place], [address] ECRCL 54.38 ml/min Normal [facility] Comment on above: Performed By: #### L 100.0100, L500.2500, L500.3400, L501.2450 #### [facility] [address] [place], [address] EST GFR - AA 77 mL/min Normal >60 [facility] Comment on above: Result Comment: Afri can Cymro GFR Calc Performed By: #### L 100.0100, L500.2500, L500.3400, L501.2450 #### [facility] [address] [place], [address] GAP 7 Normal 5-15 [facility] Comment on above: Performed By: #### L 100.0100, L500.2500, L500.3400, L501.2450 #### [facility] [address] [place], [address] GFR/1.73 sq M.predicted among non-blacks MDRD (S/P/Bld) [Vol rate/Area] 64 mL/min/{1.73_m2} Normal >60 [facility] Comment on above: Result Comment: Non- GFR Calc Performed By: #### L 100.0100, L500.2500, L500.3400, L501.2450 #### [facility] [address] [place], [address] Glucose [Mass/Vol] 131 mg/dL High 74-106 [facility] Comment on above: Result Comment: Fast ing Glucose result greater than or equal to 126 mg/dL suggests DIABETES MELLITUS per A.D.A. criteria. Performed By: #### L 100.0100, L500.2500, L500.3400, L501.2450 #### [facility] [address] [place], [address] Potassium [Moles/Vol] 3.8 mmol/L Normal 3.5-5.1 [facility] Comment on above: Performed By: #### L 100.0100, L500.2500, L500.3400, L501.2450 #### [facility] [address] [place], [address] Sodium [Moles/Vol] 141 mmol/L Normal 136-145 [facility] Comment on above: Performed By: #### L 100.0100, L500.2500, L500.3400, L501.2450 #### [facility] [address] [place], [address] Urea nitrogen [Mass/Vol] 23 mg/dL High 7-18 [facility] Comment on above: Performed By: #### L 100.0100, L500.2500, L500.3400, L501.2450 #### [facility] [address] [place], [address] CBC W/Diff, Automatedon 06-2 0-4 Absolute Lymph 1.67 X10 3/uL Normal 0.83-4.51 [facility] Comment on above: Performed By: #### L 100.0100, L500.2500, L500.3400, L501.2450 #### [facility] [address] [place], [address] Absolute Neut 6.3 X10 3/uL Normal 2.0-7.7 [facility] Comment on above: Performed By: #### L 100.0100, L500.2500, L500.3400, L501.2450 #### [facility] [address] [place], [address] Basophils/100 WBC (Bld) 0.4 % Normal 0-1 [facility] Comment on above: Performed By: #### L 100.0100, L500.2500, L500.3400, L501.2450 #### [facility] [address] [place], [address] Eosinophils/100 WBC (Bld) 0.8 % Normal 0-5 [facility] Comment on above: Performed By: #### L 100.0100, L500.2500, L500.3400, L501.2450 #### [facility] [address] [place], [address] Erythrocyte distribution width (RBC) [Ratio] 12.2 % Normal 11.6-14.6 [facility] Comment on above: Performed By: #### L 100.0100, L500.2500, L500.3400, L501.2450 #### [facility] [address] [place], [address] Hematocrit (Bld) [Volume fraction] 41.0 % Normal 37-47 [facility] Comment on above: Performed By: #### L 100.0100, L500.2500, L500.3400, L501.2450 #### [facility] [address] [place], [address] Hemoglobin (Bld) [Mass/Vol] 13.5 g/dL Normal 12.0-15.0 [facility] Comment on above: Performed By: #### L 100.0100, L500.2500, L500.3400, L501.2450 #### [facility] [address] [place], [address] IG% 0.400 Normal 0.0-0.9 [facility] Comment on above: Result Comment: IG% - Immature Granulocytes (promyelocytes, myelocytes and metamyelocytes) > 1% indicates that a LEFT SHIFT is Present. Performed By: #### L 100.0100, L500.2500, L500.3400, L501.2450 #### [facility] [address] [place], [address] Lymphocytes/100 WBC (Bld) 19.9 % Normal 19-41 [facility] Comment on above: Performed By: #### L 100.0100, L500.2500, L500.3400, L501.2450 #### [facility] [address] [place], [address] MCH (RBC) [Entitic mass] 30.5 pg Normal 27.0-32.0 [facility] Comment on above: Performed By: #### L 100.0100, L500.2500, L500.3400, L501.2450 #### [facility] [address] [place], [address] MCHC (RBC) [Mass/Vol] 32.9 g/dL Normal 32-36 [facility] Comment on above: Performed By: #### L 100.0100, L500.2500, L500.3400, L501.2450 #### [facility] [address] [place], [address] MCV (RBC) [Entitic vol] 92.6 fL Normal 81-99 [facility] Comment on above: Performed By: #### L 100.0100, L500.2500, L500.3400, L501.2450 #### [facility] [address] [place], [address] Monocytes/100 WBC (Bld) 4.0 % Normal 0-10 [facility] Comment on above: Performed By: #### L 100.0100, L500.2500, L500.3400, L501.2450 #### [facility] [address] [place], [address] Neutrophils/100 WBC (Bld) 74.5 % High 47-70 [facility] Comment on above: Performed By: #### L 100.0100, L500.2500, L500.3400, L501.2450 #### [facility] [address] [place], [address] Nucleated RBC (Bld) [#/Vol] 0 10*3/uL Normal 0-5 [facility] Comment on above: Performed By: #### L 100.0100, L500.2500, L500.3400, L501.2450 #### [facility] [address] [place], [address] Platelet mean volume (Bld) [Entitic vol] 11.0 fL Normal 6.2-12.0 [facility] Comment on above: Performed By: #### L 100.0100, L500.2500, L500.3400, L501.2450 #### [facility] [address] [place], [address] Platelets (Bld) [#/Vol] 217 10*3/uL Normal 150-450 [facility] Comment on above: Performed By: #### L 100.0100, L500.2500, L500.3400, L501.2450 #### [facility] [address] [place], [address] RBC (Bld) [#/Vol] 4.43 10*6/uL Normal 4.2-5.4 [facility] Comment on above: Performed By: #### L 100.0100, L500.2500, L500.3400, L501.2450 #### [facility] [address] [place], [address] RDW SD 41.6 fl Normal 35.1-43.9 [facility] Comment on above: Performed By: #### L 100.0100, L500.2500, L500.3400, L501.2450 #### [facility] [address] [place], [address] WBC (Bld) [#/Vol] 8.4 10*3/uL Normal 4.4-11.0 [facility] Comment on above: Performed By: #### L 100.0100, L500.2500, L500.3400, L501.2450 #### [facility] [address] [place], [address] Emergency Department Summary on 05-05-2024 Emergency Department Summary [facility] Medical Records Department [address] [place] [address] Emergency Department Summary 05/05/24 MR#: [id number] Acct: [id number] Name: ISA URIBE Rep #: [id number] : 1965 58 From: Lucho Vines DO PCP: Dr. Negra Dasilva DO Status:DEP ER Location: ED HPI History of Present Illness Chief Complaint: Abd Pain Informant: patient and friend Narrative Narrative: Patient is a 58-year-old female with past medical history of hypothyroidism as well as IBS. She states that she has not been drinking enough water over the last few days and has noticed mild irritation with urination. She states that she hydrated herself and symptoms seem to improve. However this morning she awoke and had pain in the right upper abdomen and had concerned that this may be related to worsening infection or kidney stone or her use of Ozempic and therefore comes in for evaluation [facility] Medical History (Updated 05/07/24 @ 04:[address] Lucho Vines, DO) Hypothyroidism Wears glasses Graves disease Fatty liver Diverticulosis History of IBS Non-smoker Adult ADHD Family history of colon cancer in father IBS (irritable bowel syndrome) Postablative hypothyroidism Thyroid disorder Anxiety and depression Home Medications ???Medication ???Instructions ???Recorded ???Last Taken ???Type albuterol sulfate 90 mcg/actuation 2 puff inhalation Q6H PRN 07/30/23 Unknown History aerosol inhaler shortness of breath or wheezing dextroamphetamine-amphetamin e ER 15 mg PO DAILY 01/28/24 Unknown History 15 mg 24hr capsule,extend release semaglutide 0.25 mg or 0.5 mg (2 0.5 mg subcut QWEEK 01/28/24 04/29/24 History mg/3 mL) subcutaneous pen injector (Ozempic) thyroid (pork) 90 mg tablet 90 mg PO DAILY 01/28/24 Unknown History ([place] Thyroid) cephalexin 500 mg capsule 500 mg PO TID 7 days #21 caps 05/05/24 Unknown Rx ketorolac 10 mg tablet 10 mg PO 4X/DAY PRN pain 5 days 05/05/24 Unknown Rx #20 tabs oxycodone-acetaminophen 5 mg-325 1 tab PO Q6H PRN pain 3 days #12 05/05/24 Unknown Rx mg tablet (Percocet) tabs tamsulosin 0.4 mg capsule (Flomax) 0.4 mg PO DAILY 14 days #14 caps 05/05/24 Unknown Rx Allergy/AdvReac Type Severity Reaction Status Date / Time No Known Allergies Allergy Verified 03/29/24 08:07 Family History (Updated 01/28/24 @ 10:40 by Mary Arias) Father Colorectal cancer Grandfather Myocardial infarction Colon cancer Grandmother Dementia Surgical History Hx of colonoscopy Hx of appendectomy History of laparotomy Hx of laparoscopy Social History current occupational status: employed Smoking Status: Never smoker alcohol intake: current details: social substance use type: does not use what type of physical activity do you participate in: walking seatbelt use: always do you feel safe at home: Yes additional social history: ROS ROS ED Constitutional Constitutional ED: Denies chills or fever(s) Eyes Eyes: Denies change in vision ENT ENT ED: Denies sore throat Cardiovascular Cardiovascular: Denies chest pain Respiratory/Chest Respiratory/Chest: Denies cough or dyspnea Gastrointestinal Gastrointestinal: Reports abdominal pain; Denies diarrhea, nausea or vomiting Genitourinary Genitourinary ED: Reports dysuria Musculoskeletal Musculoskeletal: Denies myalgias Integumentary Denies rash Neurologic Neurologic: Denies headache(s) Hematologic/Lymphatic Hematologic/Lymphatic: Denies easy bleeding or easy bruising EXAM Physical Exam Const Vital Signs: 05/05/24 06:00 Temperature 97.6 F L Temperature Source Oral Pulse Rate 55 L Respiratory Rate 16 Blood Pressure 149/84 H Blood Pressure Mean 105 Pulse Ox 100 Oxygen Delivery Method Room Air Positive well nourished and well developed General Appearance ED: well developed; Negative for pallor HEENT Reports moist mucous membranes HEENT Narrative: No tongue or lip swelling no oral lesions no airway edema or compromise No secondary changes in the posterior pharynx to suggest infection Eyes PERRL and EOMs intact bilaterally General Eye ED: Negative for scleral icterus Neck supple Chest Wall palpation of chest normal Resp normal respiratory effort and clear to auscultation bilaterally Cardio regular rate and regular rhythm GI non-distended GI Narrative: Abdomen is soft and nondistended with normal active bowel sounds. Patient has mild pain to palpation in the right upper abdomen without voluntary guarding or rigidity. Negative Payne sign. No pulsatile mass or fluid wave Auscultation: normoactive bowel sounds Palpation: soft Back/Spine Back/Spine Narrative: Mild righ (more content not included)... Normal [facility] Lipaseon 05-05-2024 Lipase [Catalytic activity/Vol] 31 U/L Normal 13-75 [facility] Comment on above: Result Comment: Leonel rausch note: LIPASE revised reference range effective 23. New Lipase methodology. Expected to produce lower values than the previous assay method. NEW Reference Range: 13 - 75 U/L Performed By: #### L 100.0100, L500.2500, L500.3400, L501.2450 #### [facility] [address] [place], [address] Liver Profileon 05-05-2024 Albumin [Mass/Vol] 3.2 g/dL Normal 3.2-5.0 [facility] Comment on above: Performed By: #### L 100.0100, L500.2500, L500.3400, L501.2450 #### [facility] [address] [place], [address] ALK P 86 U/L Normal 45-117 [facility] Comment on above: Performed By: #### L 100.0100, L500.2500, L500.3400, L501.2450 #### [facility] [address] [place], [address] ALT [Catalytic activity/Vol] 28 U/L Normal 13-56 [facility] Comment on above: Performed By: #### L 100.0100, L500.2500, L500.3400, L501.2450 #### [facility] [address] [place], [address] AST [Catalytic activity/Vol] 20 U/L Normal 15-37 [facility] Comment on above: Performed By: #### L 100.0100, L500.2500, L500.3400, L501.2450 #### [facility] [address] [place], [address] Bilirubin [Mass/Vol] 0.30 mg/dL Normal 0.20-1.00 [facility] Comment on above: Result Comment: For patients on eltrombopag therapy, use of Dimension [place] TBIL is not recommended. Performed By: #### L 100.0100, L500.2500, L500.3400, L501.2450 #### [facility] [address] [place], [address] Bilirubin.direct [Mass/Vol] 0.13 mg/dL Normal 0.00-0.30 [facility] Comment on above: Performed By: #### L 100.0100, L500.2500, L500.3400, L501.2450 #### [facility] [address] [place], [address] Globulin (S) [Mass/Vol] 3.3 g/dL Normal 2.2-4.2 [facility] Comment on above: Performed By: #### L 100.0100, L500.2500, L500.3400, L501.2450 #### [facility] [address] [place], [address] T PROT 6.5 g/dL Normal 6.4-8.2 [facility] Comment on above: Performed By: #### L 100.0100, L500.2500, L500.3400, L501.2450 #### [facility] [address] [place], [address] Urinalysis, Completeon 05-05 EPI,SQUAMOUS 0-5 SEEN Normal 5-10 [facility] Comment on above: Order Comment: CLEAN CATCH Performed By: #### L 400.0001 #### [facility] [address] [place], [address] Mucus Ql (Urine sed) 1+ /hpf Normal [facility] Comment on above: Order Comment: CLEAN CATCH Performed By: #### L 400.0001 #### [facility] [address] [place], [address] BACTERIA 1+ /hpf Normal None Seen [facility] Comment on above: Order Comment: CLEAN CATCH Performed By: #### L 400.0001 #### [facility] [address] [place], [place], [address] WBC 0-5 SEEN Normal 0-5 [facility] Comment on above: Order Comment: CLEAN CATCH Performed By: #### L 400.0001 #### [facility] [address] [place], [place], [id number] RBC 10-25 SEEN Normal 0-5 [facility] Comment on above: Order Comment: CLEAN CATCH Performed By: #### L 400.0001 #### [facility] [address] [place], [place], [id number] Absolute lymphocyte countOrd ered By: Negra Dasilva on 01-13-2024 Lymphocytes Auto (Unsp spec) [#/Vol] 2.04 10*3/uL 0.83-4.51 [facility] Automated lymphocyte count a s percentage of total leukocytesOrdered By: Negra Dasilva on 01-13-2024 Lymphocytes/100 WBC Auto (Unsp spec) 32.7 % 19-41 [facility] Basophil percentageOrdered B y: Negra Dasilva on 01-13-2024 Basophils/100 WBC (Bld) 1.0 % 0-1 [facility] Bilirubin [Mass/Vol] 0.40 mg/dL 0.20-1.00 [facility] Comment on above: For patients on eltr ombopag therapy, use of Dimension [place] TBIL is not recommended. Chloride [Moles/Vol] 107 mmol/L 98-107 [facility] Cholesterol [Mass/Vol] 181 mg/dL <200 [facility] Comment on above: <200 mg/dL Desirable 200-240 mg/dL Borderline >240 mg/dL High Risk Eosinophils/100 WBC (Bld) 1.6 % 0-5 [facility] Glucose [Mass/Vol] 94 mg/dL 74-106 [facility] Hemoglobin (Bld) [Mass/Vol] 14.2 g/dL 12.0-15.0 [facility] Monocytes/100 WBC (Bld) 6.1 % 0-10 [facility] Neutrophils (Bld) [#/Vol] 3.6 10*3/uL 2.0-7.7 [facility] Neutrophils/100 WBC (Bld) 58.4 % 47-70 [facility] Potassium [Moles/Vol] 4.0 mmol/L 3.5-5.1 [facility] Protein [Mass/Vol] 7.2 g/dL 6.4-8.2 [facility] Sodium [Moles/Vol] 140 mmol/L 136-145 [facility] Triglyceride [Mass/Vol] 93 mg/dL <199 [facility] Comment on above: The drugs N-Acetylcy steine and Metamizole may falsely depress this assay.Serum Triglycerides Reference Interval Normal <150 mg/dL Borderline high 150 - 199 mg/dL High 200 - 499 mg/dL Very High > or = 500 mg/dL WBC (Bld) [#/Vol] 6.2 10*3/uL 4.4-11.0 [facility] Determination of erythrocyte mean corpuscular volume (MCV)Ordered By: Negra Dasilva on 01-13-2024 MCV (RBC) [Entitic vol] 95.3 fL 81-99 [facility] Erythrocyte distribution wid th ratioOrdered By: Negra Dasilva on 01-13-2024 Erythrocyte distribution width (RBC) [Ratio] 13.7 % 11.6-14.6 [facility] Erythrocyte distribution wid th standard deviationOrdered By: Negra Dasilva on 01-13-2024 Erythrocyte distribution width (RBC) [Entitic vol] 48.1 fL 35.1-43.9 [facility] Hematocrit Auto (Bld) [Volum e fraction]Ordered By: Negra Dasilva on 01-13-2024 Hematocrit (Bld) [Volume fraction] 44.5 % 37-47 [facility] Immature granulocytes/100 WB C Auto (Bld)Ordered By: Negra Dasilva on 01-13-2024 Immature granulocytes/100 WBC (Bld) 0.200 % 0.0-0.9 [facility] Comment on above: IG% - Immature Granu locytes (promyelocytes, myelocytes and metamyelocytes) > 1% indicates that a LEFT SHIFT is Present. Laboratory - Chemistry and C hemistry - challengeOrdered By: Negra Dasilva on 01-13-2024 Albumin/Globulin [Mass ratio] 1.1 {ratio} 0.9-2.4 [facility] ALP [Catalytic activity/Vol] 84 U/L 45-117 [facility] ALT [Catalytic activity/Vol] 23 U/L 13-56 [facility] Cholesterol in HDL [Mass/Vol] 56 mg/dL >40 [facility] Comment on above: The drugs N-Acetylcy steine and Metamizole may falsely depress this assay. Reference Range HDL <40 mg/dL Low HDL Cholesterol HDL >or= 60 mg/dL High HDL Cholesterol Cholesterol in LDL [Mass/Vol] 106 mg/dL 0-130 [facility] CO2 [Moles/Vol] 28.0 mmol/L 21.0-32.0 [facility] Globulin (S) [Mass/Vol] 3.4 g/dL 2.2-4.2 [facility] Urea nitrogen/Creatinine [Mass ratio] 16.3 mg/mg 10-20 [facility] - Hematology and Cell countsOrdered By: Negra Dasilva on 01-13-2024 MCH (RBC) [Entitic mass] 30.4 pg 27.0-32.0 [facility] MCHC (RBC) [Mass/Vol] 31.9 g/dL 32-36 [facility] Nucleated RBC/100 WBC (Bld) [Ratio] 0 % 0-5 [facility] Platelet mean volume (Bld) [Entitic vol] 12.0 fL 6.2-12.0 [facility] Platelets (Bld) [#/Vol] 260 10*3/uL 150-450 [facility] No Panel InformationOrdered By: Negra Dasilva on 01-13-2024 Estimated GFR (MDRD) Amer 74 mL/min >60 [facility] Comment on above: GFR Calc Estimated GFR (MDRD) Non-Af Amer 62 mL/min >60 [facility] Comment on above: Non- GFR Calc Free Triiodothyronine (T3) pg/dL 1.6 pg/mL 2.18-3.98 [facility] VLDL Cholesterol 19 mg/dL 5-40 [facility] RBC Auto (Bld) [#/Vol]Ordere d By: Negra Dasilva on 01-13-2024 RBC (Bld) [#/Vol] 4.67 10*6/uL 4.2-5.4 [facility] Serum or plasma calcium octavio urement (mass/volume)Ordered By: Negra Dasilva on 01-13-2024 Calcium [Mass/Vol] 8.9 mg/dL 8.5-10.1 [facility] Serum or plasma creatinine m easurement (mass/volume)Ordered By: Negra Dasilva on 01-13-2024 Creatinine [Mass/Vol] 0.98 mg/dL 0.55-1.02 [facility] Comment on above: The validity of the calculated GFR & GFRAA in patients over 70 years has not been determined. Clinical correlation is essential. Serum or plasma thyroid stim ulating hormone (TSH) measurement (units/volume)Ordered By: Negra Dasilva on 01-13-2024 TSH Qn 23.60 uIU/mL 0.358-3.74 [facility] Serum or plasma urea nitroge n measurement (mass/volume)Ordered By: Negra Dasilva on 01-13-2024 Urea nitrogen [Mass/Vol] 16 mg/dL 7-18 [facility] Thin prep Papanicolaou smear with manual screeningOrdered By: Negra Dasilva on 01-13-2024 Thin prep Papanicolaou smear with manual screening 3.8 g/dL 3.2-5.0 [facility] Thin prep Papanicolaou smear with manual screening 22 U/L 15-37 [facility] Thin prep Papanicolaou smear with manual screening 5 5-15 [facility] Thin prep Papanicolaou smear with manual screening 0.54 ng/dL 0.76-1.46 [facility] Culture, urineOrdered By: Graham Mcmanus on 01-01-2024 Bacteria identified Cx Nom (U) Negative [facility] Bacteria identified Cx Nom (U) Negative [facility] - Chemistry and C hemistry - challengeOrdered By: Negra Dasilva on 05-11-2023 Free T4 [Mass/Vol] 0.76 ng/dL 0.76-1.46 [facility] No Panel InformationOrdered By: Negra Dasilva on 05-11-2023 Free Triiodothyronine (T3) pg/dL 2.5 pg/mL 2.18-3.98 [facility] Thyroid Stimulating Hormone (TSH) 0.80 uIU/mL 0.358-3.74 [facility] - Chemistry and C hemistry - challengeOrdered By: Dr. Dasilva on 01-30-2023 Free T4 [Mass/Vol] 0.75 ng/dL 0.76-1.46 [facility] No Panel InformationOrdered By: Dr. Dasilva on 01-30-2023 Free Triiodothyronine (T3) pg/dL 2.7 pg/mL 2.18-3.98 [facility] Thyroid Stimulating Hormone (TSH) 0.78 uIU/mL 0.358-3.74 [facility] Absolute lymphocyte countOrd ered By: Dr. Dasilva on 12-23-2022 Lymphocytes Auto (Unsp spec) [#/Vol] 2.09 10*3/uL 0.83-4.51 [facility] Basophil percentageOrdered B y: Dr. Dasilva on 12-23-2022 Basophils/100 WBC (Bld) 0.9 % 0-1 [facility] Bilirubin [Mass/Vol] 0.40 mg/dL 0.20-1.00 [facility] Comment on above: For patients on eltr ombopag therapy, use of Dimension [place] TBIL is not recommended. Chloride [Moles/Vol] 105 mmol/L 98-107 [facility] Eosinophils/100 WBC (Bld) 0.9 % 0-5 [facility] Glucose [Mass/Vol] 94 mg/dL 74-106 [facility] Neutrophils (Bld) [#/Vol] 3.1 10*3/uL 2.0-7.7 [facility] Neutrophils/100 WBC (Bld) 54.2 % 47-70 [facility] Potassium [Moles/Vol] 3.8 mmol/L 3.5-5.1 [facility] Protein [Mass/Vol] 7.7 g/dL 6.4-8.2 [facility] Sodium [Moles/Vol] 140 mmol/L 136-145 [facility] WBC (Bld) [#/Vol] 5.7 10*3/uL 4.4-11.0 [facility] Blood erythrocytes count (nu mber/volume)Ordered By: Dr. Dasilva on 12-23-2022 RBC (Bld) [#/Vol] 4.71 10*6/uL 4.2-5.4 [facility] Blood hemoglobin measurement (mass/volume)Ordered By: Dr. Dasilva on 12-23-2022 Hemoglobin (Bld) [Mass/Vol] 14.3 g/dL 12.0-15.0 [facility] Blood lymphocytes/100 leukoc ytesOrdered By: Dr. Dasilva on 12-23-2022 Lymphocytes/100 WBC (Bld) 36.5 % 19-41 [facility] Blood monocytes/100 leukocyt esOrdered By: Dr. Dasilva on 12-23-2022 Monocytes/100 WBC (Bld) 7.3 % 0-10 [facility] Blood platelet mean volumeOr dered By: Dr. Dasilva on 12-23-2022 Platelet mean volume (Bld) [Entitic vol] 11.9 fL 6.2-12.0 [facility] Determination of erythrocyte mean corpuscular volume (MCV)Ordered By: Dr. Dasilva on 12-23-2022 MCV (RBC) [Entitic vol] 94.3 fL 81-99 [facility] Hematocrit Auto (Bld) [Volum e fraction]Ordered By: Dr. Dasilva on 12-23-2022 Hematocrit (Bld) [Volume fraction] 44.4 % 37-47 [facility] - Chemistry and C hemistry - challengeOrdered By: Dr. Dasilva on 12-23-2022 ALP [Catalytic activity/Vol] 108 U/L 45-117 [facility] ALT [Catalytic activity/Vol] 38 U/L 13-56 [facility] CO2 [Moles/Vol] 27.0 mmol/L 21.0-32.0 [facility] Free T4 [Mass/Vol] 1.08 ng/dL 0.76-1.46 [facility] Globulin (S) [Mass/Vol] 3.9 g/dL 2.2-4.2 [facility] Urea nitrogen/Creatinine [Mass ratio] 12.5 mg/mg 10-20 [facility] - Hematology and Cell countsOrdered By: Dr. Dasilva on 12-23-2022 Erythrocyte distribution width (RBC) [Entitic vol] 47.7 fL 35.1-43.9 [facility] Erythrocyte distribution width (RBC) [Ratio] 13.5 % 11.6-14.6 [facility] Immature granulocytes/100 WBC (Bld) 0.200 % 0.0-0.9 [facility] Comment on above: IG% - Immature Granu locytes (promyelocytes, myelocytes and metamyelocytes) > 1% indicates that a LEFT SHIFT is Present. MCH (RBC) [Entitic mass] 30.4 pg 27.0-32.0 [facility] Nucleated RBC/100 WBC (Bld) [Ratio] 0 % 0-5 [facility] MCHC Auto (RBC) [Mass/Vol]Or dered By: Dr. Dasilva on 12-23-2022 MCHC (RBC) [Mass/Vol] 32.2 g/dL 32-36 [facility] No Panel InformationOrdered By: Dr. Dasilva on 12-23-2022 Estimated GFR (MDRD) Amer 77 mL/min >60 [facility] Comment on above: GFR Calc Estimated GFR (MDRD) Non-Af Amer 63 mL/min >60 [facility] Comment on above: Non- GFR Calc Free Triiodothyronine (T3) pg/dL 3.2 pg/mL 2.18-3.98 [facility] Thyroid Stimulating Hormone (TSH) 0.34 uIU/mL 0.358-3.74 [facility] Platelets bldOrdered By: Dr. Dasilva on 12-23-2022 Platelets (Bld) [#/Vol] 276 10*3/uL 150-450 [facility] Serum or plasma albumin octavio urement (mass/volume)Ordered By: Dr. Dasilva on 12-23-2022 Albumin [Mass/Vol] 3.8 g/dL 3.2-5.0 [facility] Serum or plasma albumin/glob ulin mass ratioOrdered By: Dr. Dasilva on 12-23-2022 Albumin/Globulin [Mass ratio] 1.0 {ratio} 0.9-2.4 [facility] Serum or plasma calcium octavio urement (mass/volume)Ordered By: Dr. Dasilva on 12-23-2022 Calcium [Mass/Vol] 8.9 mg/dL 8.5-10.1 [facility] Serum or plasma creatinine m easurement (mass/volume)Ordered By: Dr. Dasilva on 12-23-2022 Creatinine [Mass/Vol] 0.96 mg/dL 0.55-1.02 [facility] Comment on above: The validity of the calculated GFR & GFRAA in patients over 70 years has not been determined. Clinical correlation is essential. Serum or plasma urea nitroge n measurement (mass/volume)Ordered By: Dr. Dasilva on 12-23-2022 Urea nitrogen [Mass/Vol] 12 mg/dL 7-18 [facility] Thin prep Papanicolaou smear with manual screeningOrdered By: Dr. Dasilva on 12-23-2022 Thin prep Papanicolaou smear with manual screening 29 U/L 15-37 [facility] Thin prep Papanicolaou smear with manual screening 8 5-15 [facility] Basophil percentageOrdered B y: Dr. Villarreal on 10-22-2022 Chloride [Moles/Vol] 96 mmol/L 98-107 [facility] Glucose [Mass/Vol] 108 mg/dL 74-106 [facility] Comment on above: Fasting Glucose resu lt from 100 to 125 mg/dL suggests IMPAIRED HOMEOSTASIS per A.D.A. criteria. Potassium [Moles/Vol] 2.8 mmol/L 3.5-5.1 [facility] Sodium [Moles/Vol] 131 mmol/L 136-145 [facility] Influenza virus A and B and SARS-CoV-2 (COVID-19) Ag panel - Upper respiratory specimOrdered By: Dr. Villarreal on 10-22-2022 SARS-CoV-2 (COVID-19) RNA BEAR+probe Ql (Resp) [facility] - Chemistry and C hemistry - challengeOrdered By: Dr. Villarreal on 10-22-2022 CO2 [Moles/Vol] 26.0 mmol/L 21.0-32.0 [facility] Urea nitrogen/Creatinine [Mass ratio] 13.2 mg/mg 10-20 [facility] No Panel InformationOrdered By: Dr. Villarreal on 10-22-2022 Estimated Creatinine Clearance Calc 52.84 ml/min [facility] Estimated GFR (MDRD) Amer 74 mL/min >60 [facility] Comment on above: GFR Calc Estimated GFR (MDRD) Non-Af Amer 61 mL/min >60 [facility] Comment on above: Non- GFR Calc Serum or plasma calcium octavio urement (mass/volume)Ordered By: Dr. Villarreal on 10-22-2022 Calcium [Mass/Vol] 8.2 mg/dL 8.5-10.1 [facility] Serum or plasma creatinine m easurement (mass/volume)Ordered By: Dr. Villarreal on 10-22-2022 Creatinine [Mass/Vol] 0.99 mg/dL 0.55-1.02 [facility] Comment on above: The validity of the calculated GFR & GFRAA in patients over 70 years has not been determined. Clinical correlation is essential. Serum or plasma urea nitroge n measurement (mass/volume)Ordered By: Dr. Villarreal on 10-22-2022 Urea nitrogen [Mass/Vol] 13 mg/dL 7-18 [facility] Thin prep Papanicolaou smear with manual screeningOrdered By: Dr. Villarreal on 10-22-2022 Thin prep Papanicolaou smear with manual screening 9 5-15 [facility] Absolute lymphocyte countOrd ered By: Dr. Dasilva on 10-16-2022 Lymphocytes Auto (Unsp spec) [#/Vol] 2.16 10*3/uL 0.83-4.51 [facility] Basophil percentageOrdered B y: Dr. Dasilva on 10-16-2022 Basophils/100 WBC (Bld) 1.2 % 0-1 [facility] Bilirubin [Mass/Vol] 0.70 mg/dL 0.20-1.00 [facility] Comment on above: For patients on eltr ombopag therapy, use of Dimension [place] TBIL is not recommended. Chloride [Moles/Vol] 106 mmol/L 98-107 [facility] Eosinophils/100 WBC (Bld) 0.6 % 0-5 [facility] Glucose [Mass/Vol] 83 mg/dL 74-106 [facility] Neutrophils (Bld) [#/Vol] 4.1 10*3/uL 2.0-7.7 [facility] Neutrophils/100 WBC (Bld) 59.5 % 47-70 [facility] Potassium [Moles/Vol] 3.9 mmol/L 3.5-5.1 [facility] Protein [Mass/Vol] 7.0 g/dL 6.4-8.2 [facility] Sodium [Moles/Vol] 142 mmol/L 136-145 [facility] WBC (Bld) [#/Vol] 6.8 10*3/uL 4.4-11.0 [facility] Blood erythrocytes count (nu mber/volume)Ordered By: Dr. Dasilva on 10-16-2022 RBC (Bld) [#/Vol] 4.64 10*6/uL 4.2-5.4 [facility] Blood hemoglobin measurement (mass/volume)Ordered By: Dr. Dasilva on 10-16-2022 Hemoglobin (Bld) [Mass/Vol] 14.0 g/dL 12.0-15.0 [facility] Blood lymphocytes/100 leukoc ytesOrdered By: Dr. Dasilva on 10-16-2022 Lymphocytes/100 WBC (Bld) 31.8 % 19-41 [facility] Blood monocytes/100 leukocyt esOrdered By: Dr. Dasilva on 10-16-2022 Monocytes/100 WBC (Bld) 6.8 % 0-10 [facility] Blood platelet mean volumeOr dered By: Dr. Dasilva on 10-16-2022 Platelet mean volume (Bld) [Entitic vol] 11.6 fL 6.2-12.0 [facility] Determination of erythrocyte mean corpuscular volume (MCV)Ordered By: Dr. Dasilva on 10-16-2022 MCV (RBC) [Entitic vol] 92.9 fL 81-99 [facility] Hematocrit Auto (Bld) [Volum e fraction]Ordered By: Dr. Dasilva on 10-16-2022 Hematocrit (Bld) [Volume fraction] 43.1 % 37-47 [facility] Laboratory - Chemistry and C hemistry - challengeOrdered By: Dr. Dasilva on 10-16-2022 ALP [Catalytic activity/Vol] 120 U/L 45-117 [facility] ALT [Catalytic activity/Vol] 55 U/L 13-56 [facility] CO2 [Moles/Vol] 25.0 mmol/L 21.0-32.0 [facility] Free T4 [Mass/Vol] 1.24 ng/dL 0.76-1.46 [facility] Globulin (S) [Mass/Vol] 3.3 g/dL 2.2-4.2 [facility] Urea nitrogen/Creatinine [Mass ratio] 19.8 mg/mg 10-20 [facility] Laboratory - Hematology and Cell countsOrdered By: Dr. Dasilva on 10-16-2022 Erythrocyte distribution width (RBC) [Entitic vol] 45.7 fL 35.1-43.9 [facility] Erythrocyte distribution width (RBC) [Ratio] 13.4 % 11.6-14.6 [facility] Immature granulocytes/100 WBC (Bld) 0.100 % 0.0-0.9 [facility] Comment on above: IG% - Immature Granu locytes (promyelocytes, myelocytes and metamyelocytes) > 1% indicates that a LEFT SHIFT is Present. MCH (RBC) [Entitic mass] 30.2 pg 27.0-32.0 [facility] Nucleated RBC/100 WBC (Bld) [Ratio] 0 % 0-5 [facility] MCHC Auto (RBC) [Mass/Vol]Or dered By: Dr. Dasilva on 10-16-2022 MCHC (RBC) [Mass/Vol] 32.5 g/dL 32-36 [facility] No Panel InformationOrdered By: Dr. Dasilva on 10-16-2022 Estimated GFR (MDRD) Amer 87 mL/min >60 [facility] Comment on above: GFR Calc Estimated GFR (MDRD) Non-Af Amer 72 mL/min >60 [facility] Comment on above: Non- GFR Calc Free Triiodothyronine (T3) pg/dL 3.2 pg/mL 2.18-3.98 [facility] Thyroid Stimulating Hormone (TSH) 0.03 uIU/mL 0.358-3.74 [facility] Platelets bldOrdered By: Dr. Dasilva on 10-16-2022 Platelets (Bld) [#/Vol] 275 10*3/uL 150-450 [facility] Serum or plasma albumin octavio urement (mass/volume)Ordered By: Dr. Dasilva on 10-16-2022 Albumin [Mass/Vol] 3.7 g/dL 3.2-5.0 [facility] Serum or plasma albumin/glob ulin mass ratioOrdered By: Dr. Dasilva on 10-16-2022 Albumin/Globulin [Mass ratio] 1.1 {ratio} 0.9-2.4 [facility] Serum or plasma calcium octavio urement (mass/volume)Ordered By: Dr. Dasilva on 10-16-2022 Calcium [Mass/Vol] 8.4 mg/dL 8.5-10.1 [facility] Serum or plasma creatinine m easurement (mass/volume)Ordered By: Dr. Dasilva on 10-16-2022 Creatinine [Mass/Vol] 0.86 mg/dL 0.55-1.02 [facility] Comment on above: The validity of the calculated GFR & GFRAA in patients over 70 years has not been determined. Clinical correlation is essential. Serum or plasma urea nitroge n measurement (mass/volume)Ordered By: Dr. Dasilva on 10-16-2022 Urea nitrogen [Mass/Vol] 17 mg/dL 7-18 [facility] Thin prep Papanicolaou smear with manual screeningOrdered By: Dr. Dasilva on 10-16-2022 Thin prep Papanicolaou smear with manual screening 31 U/L 15-37 [facility] Thin prep Papanicolaou smear with manual screening 11 5-15 [facility] Absolute lymphocyte counton 06-10-2022 Lymphocytes Auto (Unsp spec) [#/Vol] 1.79 10*3/uL 0.83-4.51 [facility] Work Phone: Basophil percentageon 2021 Basophils/100 WBC (Bld) 0.6 % 0-1 [facility] Work Phone: Bilirubin [Mass/Vol] 0.40 mg/dL 0.20-1.00 [facility] Work Phone: Comment on above: For patients on eltr ombopag therapy, use of Dimension [place] TBIL is not recommended. Chloride [Moles/Vol] 106 mmol/L 98-107 [facility] Work Phone: Cholesterol [Mass/Vol] 182 mg/dL <200 [facility] Work Phone: Comment on above: <200 mg/dL Desirable 200-240 mg/dL Borderline >240 mg/dL High Risk Eosinophils/100 WBC (Bld) 0.6 % 0-5 [facility] Work Phone: Glucose [Mass/Vol] 86 mg/dL 74-106 [facility] Work Phone: Neutrophils (Bld) [#/Vol] 2.8 10*3/uL 2.0-7.7 [facility] Work Phone: Neutrophils/100 WBC (Bld) 56.4 % 47-70 [facility] Work Phone: Potassium [Moles/Vol] 3.9 mmol/L 3.5-5.1 [facility] Work Phone: Protein [Mass/Vol] 7.3 g/dL 6.4-8.2 [facility] Work Phone: Sodium [Moles/Vol] 139 mmol/L 136-145 [facility] Work Phone: Triglyceride [Mass/Vol] 80 mg/dL <199 [facility] Work Phone: Comment on above: The drugs N-Acetylcy steine and Metamizole may falsely depress this assay.Serum Triglycerides Reference Interval Normal <150 mg/dL Borderline high 150 - 199 mg/dL High 200 - 499 mg/dL Very High > or = 500 mg/dL WBC (Bld) [#/Vol] 4.9 10*3/uL 4.4-11.0 [facility] Work Phone: Blood erythrocytes count (nu mber/volume)on 06-10-2022 RBC (Bld) [#/Vol] 4.69 10*6/uL 4.2-5.4 [facility] Work Phone: Blood hemoglobin measurement (mass/volume)on 06-10-2022 Hemoglobin (Bld) [Mass/Vol] 14.7 g/dL 12.0-15.0 [facility] Work Phone: Blood lymphocytes/100 leukoc yteson 06-10-2022 Lymphocytes/100 WBC (Bld) 36.3 % 19-41 [facility] Work Phone: Blood monocytes/100 leukocyt eson 06-10-2022 Monocytes/100 WBC (Bld) 5.9 % 0-10 [facility] Work Phone: Blood platelet mean volumeon 06-10-2022 Platelet mean volume (Bld) [Entitic vol] 11.4 fL 6.2-12.0 [facility] Work Phone: Determination of erythrocyte mean corpuscular volume (MCV)on 06-10-2022 MCV (RBC) [Entitic vol] 93.8 fL 81-99 [facility] Work Phone: Hematocrit Auto (Bld) [Volum e fraction]on 06-10-2022 Hematocrit (Bld) [Volume fraction] 44.0 % 37-47 [facility] Work Phone: Laboratory - Chemistry and C hemistry - challengeon 06-10-2022 Free T4 [Mass/Vol] 1.07 ng/dL 0.76-1.46 [facility] Work Phone: ALP [Catalytic activity/Vol] 115 U/L 45-117 [facility] Work Phone: ALT [Catalytic activity/Vol] 38 U/L 13-56 [facility] Work Phone: CO2 [Moles/Vol] 27.0 mmol/L 21.0-32.0 [facility] Work Phone: Globulin (S) [Mass/Vol] 3.7 g/dL 2.2-4.2 [facility] Work Phone: Urea nitrogen/Creatinine [Mass ratio] 23.8 mg/mg 10-20 [facility] Work Phone: Laboratory - Hematology and Cell countson 06-10-2022 Erythrocyte distribution width (RBC) [Entitic vol] 44.3 fL 35.1-43.9 [facility] Work Phone: Erythrocyte distribution width (RBC) [Ratio] 13.0 % 11.6-14.6 [facility] Work Phone: Immature granulocytes/100 WBC (Bld) 0.200 % 0.0-0.9 [facility] Work Phone: Comment on above: IG% - Immature Granu locytes (promyelocytes, myelocytes and metamyelocytes) > 1% indicates that a LEFT SHIFT is Present. MCH (RBC) [Entitic mass] 31.3 pg 27.0-32.0 [facility] Work Phone: Nucleated RBC/100 WBC (Bld) [Ratio] 0 % 0-5 [facility] Work Phone: MCHC Auto (RBC) [Mass/Vol]on 06-10-2022 MCHC (RBC) [Mass/Vol] 33.4 g/dL 32-36 [facility] Work Phone: No Panel Informationon 06-10 Free Triiodothyronine (T3) pg/dL 2.7 pg/mL 2.18-3.98 [facility] Work Phone: Thyroid Stimulating Hormone (TSH) 0.13 uIU/mL 0.358-3.74 [facility] Work Phone: Estimated GFR (MDRD) Amer 84 mL/min >60 [facility] Work Phone: Comment on above: GFR Calc Estimated GFR (MDRD) Non-Af Amer 70 mL/min >60 [facility] Work Phone: Comment on above: Non- GFR Calc Vitamin D 25-Hydroxy 56.4 ng/mL [facility] Work Phone: Comment on above: Vitamin D 25(OH) Sta tus Range Deficiency <20 ng/mL (50nmol/L) Insufficiency 20 - 30 ng/mL (50 - 75 nmol/L) Sufficiency 30 - 100 ng/mL (75 - 250 nmol/L) Toxicity >100 ng/mL (>250 nmol/L) Platelets bldon 06-10-2022 Platelets (Bld) [#/Vol] 248 10*3/uL 150-450 [facility] Work Phone: Serum or plasma albumin octavio urement (mass/volume)on 06-10-2022 Albumin [Mass/Vol] 3.6 g/dL 3.2-5.0 [facility] Work Phone: Serum or plasma albumin/glob ulin mass ratioon 06-10-2022 Albumin/Globulin [Mass ratio] 1.0 {ratio} 0.9-2.4 [facility] Work Phone: Serum or plasma calcium octavio urement (mass/volume)on 06-10-2022 Calcium [Mass/Vol] 9.1 mg/dL 8.5-10.1 [facility] Work Phone: Serum or plasma cholesterol in HDL measurement (mass/volume)on 06-10-2022 Cholesterol in HDL [Mass/Vol] 57 mg/dL >40 [facility] Work Phone: Comment on above: The drugs N-Acetylcy steine and Metamizole may falsely depress this assay. Reference Range HDL <40 mg/dL Low HDL Cholesterol HDL >or= 60 mg/dL High HDL Cholesterol Serum or plasma cholesterol in VLDL measurement (mass/volume)on 06-10-2022 Cholesterol in VLDL [Mass/Vol] 16 mg/dL 5-40 [facility] Work Phone: Serum or plasma creatinine m easurement (mass/volume)on 06-10-2022 Creatinine [Mass/Vol] 0.88 mg/dL 0.55-1.02 [facility] Work Phone: Comment on above: The validity of the calculated GFR & GFRAA in patients over 70 years has not been determined. Clinical correlation is essential. Serum or plasma low density lipoprotein (LDL) cholesterol measurement (mass/volume)on 06-10-2022 Cholesterol in LDL [Mass/Vol] 109 mg/dL 0-130 [facility] Work Phone: Serum or plasma urea nitroge n measurement (mass/volume)on 06-10-2022 Urea nitrogen [Mass/Vol] 21 mg/dL 7-18 [facility] Work Phone: Thin prep Papanicolaou smear with manual screeningon 06-10-2022 Thin prep Papanicolaou smear with manual screening 23 U/L 15-37 [facility] Work Phone: Thin prep Papanicolaou smear with manual screening 6 5-15 [facility] Work Phone: EMERGENCY REPORTon EMERGENCY REPORT [facility] EMERGENCY ROOM REPORT NAME ACCOUNT SEX AGE ADMIT DISCHARGE PT MED. RECORD# NUMBER DATE DATE TYPE RONY [id number] F 56 10/30/21 10/30/21 3 ISA [id number] ROOM: ER DATE OF : 1965 DICTATING PHYSICIAN: Isa Shannon ADDENDUM: DIAGNOSTIC DATA: Chest x-ray is negative. EMERGENCY DEPARTMENT COURSE AND TREATMENT: Known COVID, not hypoxic, looks well. On Zithromax and prednisone. DIAGNOSES: 1. COVID. 2. Fatigue. PLAN/DISPOSITION: Continue current care. Follow up with primary care physician. Make sure pulse ox does not drop. Return for increasing, worsening or new symptoms. Dictated By: Isa Shannon DO 10/30/21 12:54 JOB #: [id number] Transcribed By: crispin 10/31/21 09:31 Electronically signed by: E-Sign: ISA SHANNON MD 10/31/21 16:36 Page 1 of 1 ISA URIBE Emergency Room Report Normal [facility] EMERGENCY REPORT [facility] EMERGENCY ROOM REPORT NAME ACCOUNT SEX AGE ADMIT DISCHARGE PT MED. RECORD# NUMBER DATE DATE TYPE RONY [id number] F 56 10/30/21 10/30/21 3 ISA [id number] ROOM: ER DATE OF : 1965 DICTATING PHYSICIAN: Isa Shannon HISTORY OF PRESENT ILLNESS: She was diagnosed with COVID about 5-6 days ago. She was put on Zithromax yesterday and prednisone. She still has a little bit of a cough and no fever. She is tired. She has no shortness of breath with exertion or at rest. No chest pain. No nausea, vomiting, abdominal pain, diarrhea. No urinary symptoms. Just wants to sleep a lot. No nausea, vomiting or diarrhea. PAST MEDICAL HISTORY: Thyroid. PAST SURGICAL HISTORY: Appendectomy, tubal ligation. MEDICATIONS: See nurse's notes. FAMILY HISTORY: Noncontributory. SOCIAL HISTORY: Denies alcohol, tobacco or illicit drug abuse. REVIEW OF SYSTEMS: As stated above. PHYSICAL EXAMINATION: GENERAL: She is well appearing and nontoxic. She is in no acute distress. She has no shortness of breath. No conversational dyspnea. HEENT: Mucous membranes are moist. Posterior pharynx are without erythema, edema or exudate bilaterally. Trachea is midline. Tympanic membranes without erythema, edema or exudate bilaterally. NECK: Supple. No anterior or posterior or cervical lymphadenopathy. HEART: Regular rate and rhythm without murmur, gallop or rub. LUNGS: Clear to auscultation bilaterally without wheezes, rales or rhonchi. ABDOMEN: Soft and nontender. No guarding, rebound, or rigidity. SKIN: Warm and dry without cyanosis, ecchymosis, petechiae or purpura. PLAN/DISPOSITION: I told her that she is already on the proper treatment, but I will get a chest x-ray to confirm whether or not she has documented pneumonia, but she looks well. She is saturating on 99% on room air and does not qualify for antibodies. We will do a chest x-ray and go from there. Dictated By: Isa Shannon DO 10/30/21 11:57 JOB #: [id number] Page 1 of 2 ISA URIBE Emergency Room Report ISA URIBE : 1965 Transcribed By: crispin 10/31/21 08:50 Electronically signed by: E-Sign: ISA SHANNON MD 10/31/21 09:21 Page 2 of 2 ISA URIBE Emergency Room Report Normal [facility] CHEST 1 VIEWon 10-30-2021 CHEST 1 VIEW [place] [address] Patient: ISA URIBE Phone#: : 1965 Age: 56 Gender: F Pt. Type: ER Account: [id number] Location: [id number] Ordering: DR. ISA SHANNON Exam Date: 10/30/2021/12:04 Family Phys: Charge Code: [id number] Physician: Trego Order #: [id number] DLP Dose#: PROCEDURE: X-RAY CHEST 1 VIEW COMPARISON: None. INDICATIONS: Cough. FINDINGS: LUNGS: Normal. No significant pulmonary parenchymal abnormalities. VASCULATURE: Normal. Unremarkable pulmonary vasculature. CARDIAC: Normal. No cardiac silhouette abnormality or cardiomegaly. MEDIASTINUM: Normal. No visible mass or adenopathy. PLEURA: Normal. No effusion or pleural thickening. BONES: Normal. No fracture or visible bony lesion. OTHER: Negative. CONCLUSION: No acute disease. Dictated by: Vanessa Wilson MD on 10/30/2021 at 12:23 Approved by: Vanessa Wilson MD on 10/30/2021 at 12:23 [facility]INTM[facility] ----ISA BETANCOURT ([id number]) 1965 FDate Time Provider Gqkykfipdu96/1/18 10:20 AM JUVENCIO GONZALEZ INTMWS During your visit today, we recorded the following information about you: Temperature Pulse Respiration Blood pressure 97.4 degrees 68/minute 16/minute 118/70 Weight Height 72.6 kg 1.626 Stephanie Gonzalez MD 10/30/2018 7:59 PM SignedHISTORYTashayla Filomena Asia is a 53 year old lady here to be formally [facility].[place]oved back to [place] just 2 weeks agoFell recently.Mechanical fall.Hurts left lateral hip. Tender. 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 radioactive iodine treatment for Grave'sCurrent Outpatient Prescriptions:escitalopram oxalate (LEXAPRO) 10 mg tablet Take 10 mg by mouth once daily.albuterol HFA (PROAIR HFA) 90 mcg/actuation inhaler Inhale 2 Puffs asinstructed every 4 hours as needed.thyroid (ARMOUR THYROID) 30 mg tablet TAKE 3 TABLETS BY MOUTH EVERY DAYphentermine-topiramate ER (QSYMIA) 7.5-46 mg 24 Hr Capsule TAKE ONE CAPSULE BYMOUTH EVERY MORNINGtriamterene-hydrochlo rothiazide (MAXZIDE-25) 37.5-25 mg per tablet Take 1tablet by mouth.No current facility-administered medications for this visit.ALLERGIESAllergen Reactions- Seasonal Allergies IntolerancePAST SURGICAL HISTORYProcedure Laterality Date- APPENDECTOMY 07/2016 ruptured- COLONOSCOPY 12/2016 5 years because of [facility] father had colon cancerFAMILY HISTORYProblem Relation Age of Onset- Colon Cancer Father rectal cancerSocial History Marital status: Legally Spouse name: Years of education: Number of children:Social History Main Topics Smoking status: Never Smoker Smokeless tobacco: Never UsedREVIEW OF SYSTEMSAside from above, Constitutional, HEENT, CV, PULM, GI, , PSYCH, DERM,HEM/ONC, NEURO negative.PHYSICAL EXAMINATION:Blood pressure 118/70, pulse 68, temperature 36.3 ?C (97.4 ?F), temperaturesource Left Tympanic, resp. rate 16, height 162.6 cm (5' 4), weight 72.6 kg(160 lb).Body mass index is 27.46 kg/m?.General appearance: well appearing, in no acute distress, well-hydrated, wellnourishedSkin: Skin color, texture, turgor normal. No significant rashes or lesionsaside from abrasions on knees and bruises shins.Head: NormalEyes: Anicteric sclera. Pupils are equally round and reactive to light.Extraocular movements are intact.Ears: External ears normal. Canals clear. TM's unremarkable.Nose/Sinuses: negativeOropharynx: Lips, mucosa, and tongue normal. Teeth and gums normal. Oropharynxnormal.Neck: Neck supple, no adenopathy; thyroid symmetric, normal size, no bruits.Lungs: Lungs clear to auscultationHeart: negative. RRR without murmur, gallop, or rubs. No ectopy.Abdomen: Abdomen soft, non-tender. Bowel sounds normal. No masses, organomegalyExtremities: Extremities normal. No deformities, edema, or skin discoloration.Good capillary refill.Musculoskeletal: grossly normalPeripheral pulses: NormalNeuro: Gait normal. Reflexes normal and symmetric. Sensation grossly intact. Nogross focal neurological deficits.ASSESSMENT AND PLANSee diagnoses and ordersEncounter Diagnosis ICD-10-CM1. Postablative hypothyroidism E89.0 TSH BLD T4 FREE/FREE THYROX T3 FREE BLD DISCONTINUED: thyroid (ARMOUR THYROID) 30 mg tablet radioactive iodine treatment for Grave's2. Graves disease E05.00 in remission after radioactive iodine ablation3. Abnormal mammogram of both breasts R92.8 ANSHUL DIAG W FARHAN BILAT ANSHUL DIAG W FARHAN BILAT was due for 6 month FU in . Vitamin D deficiency E55.9 VITAMIN D 25 HYDROXY5. Depression, unspecified depression type F32.89 year old lady here to be formally established with me.History and medications reviewed. Epic updated as neededDoing well on SSRI.Clinically euthyroid. TSH fine. Continue to adjust dose of replacement asindicated based on symptoms and labs.Above issues addressed with patient. Patient involved in shared decision makingfor management of medical issues.Refills taken care of and meds adjusted as indicated after reviewed history,exam and labs.Health Maintenance reviewed. Updated record and/or ordered tests as recorded.Encouraged on efforts at healthy diet and regular exercise and adequate sleep.Needs to keep working on diet and exercise with lifestyle changes foreffective weight loss/weight maintenance.Reviewed that patient had been given Qsymia by her prior PCP. She states shehas had trouble with losing weight and keeping weight off.Discussed need to make lifestyle changes including pairing protein with carbs.BMI now close to <27.The majority of the visit was spent counseling and/or coordinating care for thepatient. [id number] time was at least 45 minutes.Gaby Zhu Provider: SELF [200]Allergies As of Date: 10/16/2018 Noted Allergy ReactionSEASONAL ALLERGIES 10/16/2018 5 - IntoleranceDate Reviewed: 10/16/2018Reviewed by: Bing Ventura LPN - Fully AssessedReason for Visit: Physical [83] Radiology Mamm[facility]1485[facility] History RecordedPrimary Visit Diagnosis:Postablative hypothyroidism [E89.0] Comment:radioactive iodine treatment for Grave's Other Visit Diagnoses:Graves disease [E05.00] Comment:in remission after radioactive iodine ablation Abnormal mammogram of both breasts [R92.8] Comment:was due for 6 month FU in September Vitamin D deficiency [E55.9] Depression, unspecified depression type [F32.9]Order(s):escitalopram oxalate (LEXAPRO) 10 mg tabletTake 1 tablet by mouth once daily.Disp: 90 tabletRfl: 3 TSH BLD [SQTSH] Order #: [id number] FUTURE T4 FREE/FREE THYROX [SQFT4] Order #: [id number] FUTURE T3 FREE BLD [SQFREET3] Order #: [id number] FUTURE ANSHUL DIAG W FARHAN BILAT [4050070] Order #: [id number] FUTURE ANSHUL DIAG W FARHAN BILAT [5371793] Order #: [id number] FUTURE VITAMIN D 25 HYDROXY [SQVITD] Order #: [id number] FUTURE triamterene-hydrochlorothiaz ariel (MAXZIDE-25) 37.5-25 mg per tabletTake 1 tablet by mouth once daily as needed. For fluid retention and leg swellingDisp: 30 tabletRfl: 11 albuterol HFA (PROAIR HFA) 90 mcg/actuation inhalerInhale 2 Puffs as instructed every 4 hours as needed.Disp: 1 InhalerRfl: 2Prescriptions as of 10/16/2018 Sig: ALBUTEROL SULFATE HFA 90 MCG/* Inhale 2 Puffs as instructed * ESCITALOPRAM 10 MG TABLET Take 1 tablet by mouth once d* PHENTERMINE 7.5 MG-TOPIRAMATE* TAKE ONE CAPSULE BY MOUTH JACQUE* TRIAMTERENE 37.5 MG-HYDROCHLO* Take 1 tablet by mouth once d*X THYROID (PORK) 30 MG TABLET Take 3 tablets by mouth once *Medication notes this encounter PHENTERMINE 7.5 MG-TOPIRAMATE ER 46 MG CAPSULE,EXT.RELEASE 24HR MPHASE >> Juvencio Gonzalez MD 10/16/2018 11:48 AM >> JUVENCIO GONZALEZ MD [facility] Oct 16, 2018 11:48 AM was as needed THYROID (PORK) 30 MG TABLET >> Bing Ventura LPN 10/16/2018 10:47 AM >> BING VENTURA LPN Sat Oct 16, 2018 10:47 AM Taking 105mg once daily.Problem List As Of Date 10/16/2018 Noted Resolved Postablative hypothyroidism [E89.0] INVALID FOR* More... Graves disease [E05.00] INVALID FOR* Vitamin D deficiency [E55.9] INVALID FOR*Prescriptions ordered this encounter Disp Refills Start End ESCITALOPRAM 10 MG TABLET 90 t* 3 10/16/2018 Route: ORAL Sig: Take 1 tablet by mouth once daily. THYROID (PORK) 30 MG TABLET 10/16/2018 10/27/2018 Class: Med Update Route: ORAL Sig: Take 3 tablets by mouth once daily. TRIAMTERENE 37.5 MG-HYDROCHLOROTHIAZ* 30 t* 11 10/16/2018 Route: ORAL Sig: Take 1 tablet by mouth once daily as needed. For fluid retention and leg swelling ALBUTEROL SULFATE HFA 90 MCG/ACTUATI* 1 In* 2 10/16/2018 Route: INHALATION Sig: Inhale 2 Puffs as instructed every 4 hours as needed.Medications Discontinued During This Encounter escitalopram oxalate (LEXAPRO) 10 mg* 10/16/2018 Class: Historical Med Route: ORAL Sig: Take 10 mg by mouth once daily. Disc: Reason for discontinue is not on file. thyroid (ARMOUR THYROID) 30 mg tablet 03/22/2018 10/16/2018 Class: Historical Med Sig: TAKE 3 TABLETS BY MOUTH EVERY DAY Disc: Reason for discontinue is not on file. triamterene-hydrochlorothiaz ariel (MAX* 03/29/2018 10/16/2018 Class: Historical Med Route: ORAL Sig: Take 1 tablet by mouth. Disc: Reason for discontinue is not on file. albuterol HFA (PROAIR HFA) 90 mcg/ac* 1 In* 0 06/07/2018 10/16/2018 Route: INHALATION Sig: Inhale 2 Puffs as instructed every 4 hours as needed. Disc: Reason for discontinue is not on file.Disposition: Return in about 6 months (around 04/16/2019) for 6 months follow up, With labs prior.Follow-up and Disposition History RecordedEncounter Number: [id number] Status:Closed by JUVENCIO GONZALEZ MD on 10/30/18 Normal [facility] Free T3on 10-16-2018 T3 free mass conc 8.1 pg/mL High 2.3-4.1 [facility] Comment on above: Performed By: #### F REET3, FT4, TSH, VITD ####[facility] [id number] [place], [place] [phone] Free T4on 10-16-2018 T4 free mass conc 1.2 ng/dL Normal 0.9-1.7 [facility] Comment on above: Performed By: #### F REET3, FT4, TSH, VITD ####[facility] [address] [place], [place] [phone] PROGRESSon 10-16-2018 Protein mass conc HNO ID: [id number] thor: Juvencio Salgadoervice: (none)Author Type: PhysicianType: Progress NotesFiled: 10/30/2018 7:59 PMNote Text:HISTORYTashayla Betancourt is a 53 year old lady here to be formally establishedwith nd and for physical.[place]oved [place] to [place] just 2 weeks agoFell recently.Mechanical fall.Hurts left lateral hip. Tender. 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 radioactive iodine treatment for Grave'sCurrent Outpatient Prescriptions:escitalopram oxalate (LEXAPRO) 10 mg tablet Take 10 mg by mouth oncedaily.albuterol HFA (PROAIR HFA) 90 mcg/actuation inhaler Inhale 2 Puffs asinstructed every 4 hours as needed.thyroid (ARMOUR THYROID) 30 mg tablet TAKE 3 TABLETS BY MOUTH EVERY DAYphentermine-topiramate ER (QSYMIA) 7.5-46 mg 24 Hr Capsule TAKE ONECAPSULE BY MOUTH EVERY MORNINGtriamterene-hydrochlo rothiazide (MAXZIDE-25) 37.5-25 mg per tablet Take 1tablet by mouth.No current facility-administered medications for this visit.ALLERGIESAllergen Reactions- Seasonal Allergies IntolerancePAST SURGICAL HISTORYProcedure Laterality Date- APPENDECTOMY 07/2016 ruptured- COLONOSCOPY 12/2016 5 years because of FM father had colon cancerFAMILY HISTORYProblem Relation Age of Onset- Colon Cancer Father rectal cancerSocial History Marital status: Legally Spouse name: Years of education: Number of children:Social History Main Topics Smoking status: Never Smoker Smokeless tobacco: Never UsedREVIEW OF SYSTEMSAside from above, Constitutional, HEENT, CV, PULM, GI, , PSYCH, DERM,HEM/ONC, NEURO negative.PHYSICAL EXAMINATION:Blood pressure 118/70, pulse 68, temperature 36.3 ?C (97.4 ?F),temperature source Left Tympanic, resp. rate 16, height 162.6 cm (5' 4),weight 72.6 kg (160 lb).Body mass index is 27.46 kg/m?.General appearance: well appearing, in no acute distress, well-hydrated,well nourishedSkin: Skin color, texture, turgor normal. No significant rashes or lesionsaside from abrasions on knees and bruises shins.Head: NormalEyes: Anicteric sclera. Pupils are equally round and reactive to light.Extraocular movements are intact.Ears: External ears normal. Canals clear. TM's unremarkable.Nose/Sinuses: negativeOropharynx: Lips, mucosa, and tongue normal. Teeth and gums normal.Oropharynx normal.Neck: Neck supple, no adenopathy; thyroid symmetric, normal size, nobruits.Lungs: Lungs clear to auscultationHeart: negative. RRR without murmur, gallop, or rubs. No ectopy.Abdomen: Abdomen soft, non-tender. Bowel sounds normal. No masses,organomegalyExtremiti es: Extremities normal. No deformities, edema, or skindiscoloration. Good capillary refill.Musculoskeletal: grossly normalPeripheral pulses: NormalNeuro: Gait normal. Reflexes normal and symmetric. Sensation grosslyintact. No gross focal neurological deficits.ASSESSMENT AND PLANSee diagnoses and ordersEncounter Diagnosis ICD-10-CM1. Postablative hypothyroidism E89.0 TSH BLD T4 FREE/FREE THYROX T3 FREE BLD DISCONTINUED: thyroid (ARMOUR THYROID) 30 mg tablet radioactive iodine treatment for Grave's2. Graves disease E05.00 in remission after radioactive iodine ablation3. Abnormal mammogram of both breasts R92.8 ANSHUL Aguillon FARHAN BILAT ANSHUL REAL BILGISELE was due for 6 month FU in . Vitamin D deficiency E55.9 VITAMIN D 25 HYDROXY5. Depression, unspecified depression type F32.89 year old lady here to be formally established with me.History and medications reviewed. Epic updated as neededDoing well on SSRI.Clinically euthyroid. TSH fine. Continue to adjust dose of replacement asindicated based on symptoms and labs.Above issues addressed with patient. Patient involved in shared decisionmaking for management of medical issues.Refills taken care of and meds adjusted as indicated after reviewedhistory, exam and labs.Health Maintenance reviewed. Updated record and/or ordered tests asrecorded.Encouraged on efforts at healthy diet and regular exercise and adequatesleep.Needs to keep working on diet and exercise with lifestyle changes foreffective weight loss/weight maintenance.Reviewed that patient had been given Qsymia by her prior PCP. She statesshe has had trouble with losing weight and keeping weight off.Discussed need to make lifestyle changes including pairing protein withcarbs.BMI now close to <27.The majority of the visit was spent counseling and/or coordinating carefor the patient. Kosn-rv-dgpx time was at least 45 minutes.Juvencio Gonzalez MD Normal [facility] TSHon 10-16-2018 Thyrotropin Qn 0.568 uU/mL Normal 0.400-5.500 [facility] Comment on above: Performed By: #### F REET3, FT4, TSH, VITD ####[facility] [address] [place], [place] [phone] Vitamin D 25 Hydroxyon 10-16 Vitamin D 25 Hydroxy 35.8 ng/mL Normal 31.0-80.0 [facility] Comment on above: Result Comment: Clas sification of 25 [place] Vitamin D status:Insufficiency/Moderate Deficiency: < or = 30 ng/mLSufficiency/Optimal Levels: 31 to 80 ng/mLToxicity: > 100 ng/mLTest performed by chemiluminescent immunoassay. Performed By: #### F REET3, FT4, TSH, VITD ####[facility] [address] [place], [place] [phone] CNOVon 06-07-2018 CNOV Office Visit (UCWSTR) ----ISA BETANCOURT ([id number]) 1965 FDate Time Provider Department06/07/18 8:00 PM ANA TIWARI ([facility]) [facility] [place] During your visit today, we recorded the following information about you: Temperature Pulse Respiration Blood pressure 98.8 degrees 80/minute 18/minute 132/82 Weight 72.6 kgAna Tiwari APRN.CASINO PORTER 06/09/2018 4:22 PM SignedSubjectiveHPIPatient presents with:Cough: getting worse at night, on augmentin x 06/04 seen in urgent care dx withfrontal sinusitis. States sinus pain symptoms improving.Denies any otc medications for cough.ROS All other reviewed and negative other than HPI.No past medical history on file.No past surgical history on file.ALLERGIES Patient has no known allergies.MEDICATIONSescital opram oxalate (LEXAPRO) 10 mg tablet Take 10 mg by mouth once daily.thyroid (ARMOUR THYROID) 30 mg tablet TAKE 3 TABLETS BY MOUTH EVERY DAYamoxicillin-clavulanic acid (AUGMENTIN) 875-125 mg per tablet Take 1 tablet bymouth twice daily for 10 days.albuterol HFA (PROAIR HFA) 90 mcg/actuation inhaler Inhale 2 Puffs asinstructed every 4 hours as needed.predniSONE (DELTASONE) 10 mg tablet Take 4 tabs daily for 3 days, then 2 tabsdaily for 3 days, then 1 tab daily for 3 days with food.Brompheniramine-Pseudoe ph-DM (BROMFED DM) 2-30-10 mg/5 mL syrup Take 10 mL bymouth four times daily as needed for up to 7 days.phentermine-topiramate ER (QSYMIA) 7.5-46 mg 24 Hr Capsule TAKE ONE CAPSULE BYMOUTH EVERY MORNINGtriamterene-hydrochlo rothiazide (MAXZIDE-25) 37.5-25 mg per tablet Take 1tablet by mouth.No family history on file.Social HistorySubstance Use Topics- Smoking status: Never Smoker- Smokeless tobacco: Never Used- Alcohol use Not on fileObjectivePhysical ExamConstitutional: She is well-developed, well-nourished, and in no distress.HENT:Head: Normocephalic.Right Ear: Tympanic membrane, external ear and ear canal normal.Left Ear: Tympanic membrane, external ear and ear canal normal.Nose: Mucosal edema present. Right sinus exhibits no maxillary sinus tendernessand no frontal sinus tenderness. Left sinus exhibits no maxillary sinustenderness and no frontal sinus tenderness.Mouth/Throat: Posterior oropharyngeal erythema (PND) present.Eyes: Conjunctivae are normal.Neck: Normal range of motion. Neck supple.Cardiovascular: Normal rate, regular rhythm and normal heart sounds.Pulmonary/Chest: [place] normal and breath sounds normal. No respiratorydistress. She has no wheezes.Abdominal: Soft. She exhibits no distension. There is no tenderness.Lymphadenopathy: She has no cervical adenopathy.Skin: Skin is warm and dry. No rash noted.Nursing note and vitals reviewed.ASSESSMENT/PLAN:1. Cough - ICD9: 786.2, ICD10: M40-Zdzbedfrtz-Nldenyyqx inhaler YHW-Jfhwpei-dmll. Augmentin-F/u with pcp in 3-5 days or sooner if symptoms are not improving or worseningPrescription instructions reviewed with patient as applicable. Patient advisedif symptoms do not improve or if symptoms worsen sooner, to contact theirprimary care physician. Potential red flag symptoms discussed with thepatient. Reviewed appropriate action plan to take if red flag symptoms occur.Patient agreeable to treatment plan.Ana Tiwari APRN.CNPReferring Provider: SELF [[id number]]Allergies As of Date: 06/07/2018(No Known Allergies)Date Reviewed: 06/07/2018Reviewed by: Evelyn Pepe Ma - Fully AssessedReason for Visit: Cough [28] Cmt: getting worse on augmentin x 06/04 seen in urgent carePrimary Visit Diagnosis:Cough [R05]Order(s):albuterol HFA (PROAIR HFA) 90 mcg/actuation inhalerInhale 2 Puffs as instructed every 4 hours as needed.Disp: 1 InhalerRfl: 0 predniSONE (DELTASONE) 10 mg tabletTake 4 tabs daily for 3 days, then 2 tabs daily for 3 days, then 1 tab daily for 3 days with food.Disp: 21 tabletRfl: 0 Iisukjopbwigfqa-Xaadpxajt-FV (BROMFED DM) 2-30-10 mg/5 mL syrupTake 10 mL by mouth four times daily as needed for up to 7 days.Disp: 240 mLRfl: 0Prescriptions as of 06/07/2018 Sig: ESCITALOPRAM 10 MG TABLET Take 10 mg by mouth once evangelina* THYROID (PORK) 30 MG TABLET TAKE 3 TABLETS BY MOUTH EVERY* AMOXICILLIN 875 MG-POTASSIUM * Take 1 tablet by mouth twice * ALBUTEROL SULFATE HFA 90 MCG/* Inhale 2 Puffs as instructed * PREDNISONE 10 MG TABLET Take 4 tabs daily for 3 days,* BROMPHENIRAMINE-PSEUDOEPHEDR I* Take 10 mL by mouth four time* PHENTERMINE 7.5 MG-TOPIRAMATE* TAKE ONE CAPSULE BY MOUTH JACQUE* TRIAMTERENE 37.5 MG-HYDROCHLO* Take 1 tablet by mouth.Problem List As Of Date: 06/07/2018(None)Prescription s ordered this encounter Disp Refills Start End ALBUTEROL SULFATE HFA 90 MCG/ACTUATI* 1 In* 0 06/07/2018 Route: INHALATION Sig: Inhale 2 Puffs as instructed every 4 hours as needed. PREDNISONE 10 MG TABLET 21 t* 0 06/07/2018 06/16/2018 Sig: Take 4 tabs daily for 3 days, then 2 tabs daily for 3 days, then 1 tab daily for 3 days with food. BROMPHENIRAMINE-PSEUDOEPHEDR INE-DM 2* 240 * 0 06/07/2018 06/14/2018 Route: ORAL Sig: Take 10 mL by mouth four times daily as needed for up to 7 days.Disposition: Return if symptoms worsen or fail to improve.Follow-up and Disposition History RecordedEncounter Number: [id number] Status:Closed by ANA TIWARI on 06/09/18 Normal [facility] PROGRESSon 06-07-2018 Protein mass conc HNO ID: [id number] thor: Ana Tipton (Dominguez) Noel: (none)Author Type: Nurse PractitionerType: Progress NotesFiled: 06/09/2018 4:22 PMNote Text:SubjectiveHPIPatient presents with:Cough: getting worse at night, on augmentin x 06/04 seen in urgent care dxwith frontal sinusitis. States sinus pain symptoms improving.Denies any otc medications for cough.ROS All other reviewed and negative other than HPI.No past medical history on file.No past surgical history on file.ALLERGIES Patient has no known allergies.MEDICATIONSescital opram oxalate (LEXAPRO) 10 mg tablet Take 10 mg by mouth oncedaily.thyroid (ARMOUR THYROID) 30 mg tablet TAKE 3 TABLETS BY MOUTH EVERY DAYamoxicillin-clavulanic acid (AUGMENTIN) 875-125 mg per tablet Take 1tablet by mouth twice daily for 10 days.albuterol HFA (PROAIR HFA) 90 mcg/actuation inhaler Inhale 2 Puffs asinstructed every 4 hours as needed.predniSONE (DELTASONE) 10 mg tablet Take 4 tabs daily for 3 days, then 2tabs daily for 3 days, then 1 tab daily for 3 days with food.Brompheniramine-Pseudoe ph-DM (BROMFED DM) 2-30-10 mg/5 mL syrup Take 10 mLby mouth four times daily as needed for up to 7 days.phentermine-topiramate ER (QSYMIA) 7.5-46 mg 24 Hr Capsule TAKE ONECAPSULE BY MOUTH EVERY MORNINGtriamterene-hydrochlo rothiazide (MAXZIDE-25) 37.5-25 mg per tablet Take 1tablet by mouth.No family history on file.Social HistorySubstance Use Topics- Smoking status: Never Smoker- Smokeless tobacco: Never Used- Alcohol use Not on fileObjectivePhysical ExamConstitutional: She is well-developed, well-nourished, and in no distress.HENT:Head: Normocephalic.Right Ear: Tympanic membrane, external ear and ear canal normal.Left Ear: Tympanic membrane, external ear and ear canal normal.Nose: Mucosal edema present. Right sinus exhibits no maxillary sinustenderness and no frontal sinus tenderness. Left sinus exhibits nomaxillary sinus tenderness and no frontal sinus tenderness.Mouth/Throat: Posterior oropharyngeal erythema (PND) present.Eyes: Conjunctivae are normal.Neck: Normal range of motion. Neck supple.Cardiovascular: Normal rate, regular rhythm and normal heart sounds.Pulmonary/Chest: [place] normal and breath sounds normal. No respiratorydistress. She has no wheezes.Abdominal: Soft. She exhibits no distension. There is no tenderness.Lymphadenopathy: She has no cervical adenopathy.Skin: Skin is warm and dry. No rash noted.Nursing note and vitals reviewed.ASSESSMENT/PLAN:1. Cough - ICD9: 786.2, ICD10: K13-Osbztekxgy-Fwzevmhxp inhaler NKP-Hpsvkvm-oqfb. Augmentin-F/u with pcp in 3-5 days or sooner if symptoms are not improving orworseningPrescription instructions reviewed with patient as applicable. Patientadvised if symptoms do not improve or if symptoms worsen sooner, tocontact their primary care physician. Potential red flag symptomsdiscussed with the patient. Reviewed appropriate action plan to take ifred flag symptoms occur. Patient agreeable to treatment plan.Ana Tiwari APRN.CNP Normal [facility] CNOVon 06-04-2018 CNOV Office Visit (UCWSTR) ----ISA BETANCOURT ([id number]) 1965 FDate Time Provider Department06/04/18 7:15 PM BRIDGET CASTRO (JAYSHREE) WSTR During your visit today, we recorded the following information about you: Temperature Pulse Respiration Blood pressure 97.7 degrees 84/minute 16/minute 110/80 Weight 73.5 kgBridget Castro APRN.CNP 06/04/2018 7:33 PM SignedSubjectiveThe history is provided by the patient. No banking officer was used.CoughAssociated symptoms include headaches (sinus). Pertinent negatives include nochest pain, no chills, no ear pain, no sore throat, no myalgias, no shortnessof breath and no wheezing.HPI Isa Betancourt is a 52 year old female who presents today for CC ofcough This started over the past month. she is also having facial pressureSymptoms are worsened by leaning forward She has tried OTC claritin D Riskfactors family members ill. PMH seasonal allergies, sinusitis, pneumoniaBP 110/80 Pulse 84 Temp 36.5 ?C (97.7 ?F) (Left Tympanic) Resp 16 Wt 73.5 kg (162 lb) SpO2 98%ALLERGIESNo Known AllergiesThere is no problem list on file for this patient.No family history on file.Social History Marital status: Legally Spouse name: Years of education: Number of children:Social History Main Topics Smoking status: Never Smoker Smokeless tobacco: Never UsedReview of SystemsConstitutional: Negative. Negative for chills, fever and malaise/fatigue.HENT: Positive for congestion and sinus pain. Negative for ear pain and sorethroat.Respiratory: Positive for cough. Negative for sputum production, shortness ofbreath and wheezing.Cardiovascular: Negative for chest pain.Musculoskeletal: Negative for myalgias.Skin: Negative for rash.Neurological: Positive for headaches (sinus).ObjectivePhysical ExamConstitutional: She is well-developed, well-nourished, and in no distress.HENT:Head: Normocephalic and atraumatic.Right Ear: Tympanic membrane, external ear and ear canal normal. Tympanicmembrane is not injected, not erythematous, not retracted and not bulging. Nomiddle ear effusion.Left Ear: Tympanic membrane, external ear and ear canal normal. Tympanicmembrane is not injected, not erythematous, not retracted and not bulging. Nomiddle ear effusion.Nose: Mucosal edema and rhinorrhea present. Right sinus exhibits frontal sinustenderness. Right sinus exhibits no maxillary sinus tenderness. Left sinusexhibits frontal sinus tenderness. Left sinus exhibits no maxillary sinustenderness.Mouth/Throat : Uvula is midline and mucous membranes are normal. Posteriororopharyngeal erythema present. No oropharyngeal exudate, posteriororopharyngeal edema or tonsillar abscesses.Clear thick post nasal drainageEyes: Conjunctivae and EOM are normal. Pupils are equal, round, and reactive tolight.Neck: Normal range of motion.Cardiovascular: Normal rate, regular rhythm and normal heart sounds.Pulmonary/Chest: [place] normal and breath sounds normal. No respiratorydistress. She has no wheezes. She has no rales.Lymphadenopathy: Head (right side): No submental, no submandibular, no tonsillar, nopreauricular and no posterior auricular adenopathy present. Head (left side): No submental, no submandibular, no tonsillar, nopreauricular and no posterior auricular adenopathy present. She has no cervical adenopathy. Right cervical: No posterior cervical adenopathy present. Left cervical: No posterior cervical adenopathy present. Right: No supraclavicular adenopathy present. Left: No supraclavicular adenopathy present.Skin: Skin is warm and dry.Psychiatric: Affect normal.Nursing note and vitals reviewed.ASSESSMENT/PLAN:1. Acute non-recurrent frontal sinusitis - ICD9: 461.1, ICD10: J01.10- Will begin treatment with Augmentin 875 mg PO BID for 10 days- The patient should also be given warm salt water gargles, throat lozengesand/or OTC throat spray as needed for the first 5-7 days of treatment.- Supportive care with plenty of fluids, rest, and analgesia prn.- Follow up in one week if symptoms persist or worsen.- THYROID (PORK) 30 MG TABLET- PHENTERMINE 7.5 MG-TOPIRAMATE ER 46 MG CAPSULE,EXT.RELEASE 24HR MPHASE- TRIAMTERENE 37.5 MG-HYDROCHLOROTHIAZIDE 25 MG TABLET- AMOXICILLIN 875 MG-POTASSIUM CLAVULANATE 125 MG TABLET-Increase fluid intake. Try to drink at least 8 glasses of non caffeinatedfluids daily.--Rest as much as possible.-Do the nasal saline irrigation at least 2 x day to relieve nasal mucous andcongestion: brands include Julio Cesar Med, Simply saline, Gregg nasal spray, or eventhe generic store brand one is ok.Take the entire course of antibiotics as prescribed. DO NOT stop taking itearly, even if you are feeling better.-Practice good hygiene, wash hands frequently.-Monitor for signs of worsening infection: increased temperature, pain in face,ear pain or headaches or increase in nasal congestion/mucous that is notimproving.-Educated patient on side effects of medication.You can take an OTC probiotic such as Culturelle or Align to help with stomachupset/loose stool that you may get as a side effect of the antibiotic.Diagnosis and treatment plan were discussed and questions were answered to thepatient's satisfaction. Pt acknowledged understanding of concepts and follow upplan.Specific signs and symptoms that would indicate the need for higher level ofcare were discussed in detail warranting prompt ER evaluation.Bahman Domingo APRN.CNP 06/04/2018 7:30 PM SignedASSESSMENT/PLAN:1. Acute non-recurrent frontal sinusitis - ICD9: 461.1, ICD10: J01.10- Will begin treatment with Augmentin 875 mg PO BID for 10 days- The patient should also be given warm salt water gargles, throat lozengesand/or OTC throat spray as needed for the first 5-7 days of treatment.- Supportive care with plenty of fluids, rest, and analgesia prn.- Follow up in one week if symptoms persist or worsen.- THYROID (PORK) 30 MG TABLET- PHENTERMINE 7.5 MG-TOPIRAMATE ER 46 MG CAPSULE,EXT.RELEASE 24HR MPHASE- TRIAMTERENE 37.5 MG-HYDROCHLOROTHIAZIDE 25 MG TABLET- AMOXICILLIN 875 MG-POTASSIUM CLAVULANATE 125 MG TABLET-Increase fluid intake. Try to drink at least 8 glasses of non caffeinatedfluids daily.--Rest as much as possible.-Do the nasal saline irrigation at least 2 x day to relieve nasal mucous andcongestion: brands include Julio Cesar Med, Simply saline, Gregg nasal spray, or eventPlannet Group store brand one is ok.Take the entire course of antibiotics as prescribed. DO NOT stop taking itearly, even if you are feeling better.-Practice good hygiene, wash hands frequently.-Monitor for signs of worsening infection: increased temperature, pain in face,ear pain or headaches or increase in nasal congestion/mucous that is notimproving.-Educated patient on side effects of medication.You can take an OTC probiotic such as Culturelle or Align to help with stomachupset/loose stool that you may get as a side effect of the antibiotic.Referring Provider: SELF [[id number]]Allergies As of Date: 06/04/2018(No Known Allergies)Date Reviewed: 06/04/2018Reviewed by: Bridget WhatleyGrafton State HospitalMeseret Castro - Fully AssessedReason for Visit: Sinus Infection,frequent/recurring [1167] Cough [28]Primary Visit Diagnosis:Acute non-recurrent frontal sinusitis [J01.10]Order(s):amoxicillin -clavulanic acid (AUGMENTIN) 875-125 mg per tabletTake 1 tablet by mouth twice daily for 10 days.Disp: 20 tabletRfl: 0Prescriptions as of 06/04/2018 Sig: THYROID (PORK) 30 MG TABLET TAKE 3 TABLETS BY MOUTH EVERY* PHENTERMINE 7.5 MG-TOPIRAMATE* TAKE ONE CAPSULE BY MOUTH JACQUE* TRIAMTERENE 37.5 MG-HYDROCHLO* Take 1 tablet by mouth. AMOXICILLIN 875 MG-POTASSIUM * Take 1 tablet by mouth twice *Problem List As Of Date: 06/04/2018(None) Other instructions from your clinician: ASSESSMENT/PLAN: 1. Acute non-recurrent frontal sinusitis - ICD9: 461.1, ICD10: J01.10 - Will begin treatment with Augmentin 875 mg PO BID for 10 days - The patient should also be given warm salt water gargles, throat lozenges and/or OTC throat spray as needed for the first 5-7 days of treatment. - Supportive care with plenty of fluids, rest, and analgesia prn. - Follow up in one week if symptoms persist or worsen. - THYROID (PORK) 30 MG TABLET - PHENTERMINE 7.5 MG-TOPIRAMATE ER 46 MG CAPSULE,EXT.RELEASE 24HR MPHASE - TRIAMTERENE 37.5 MG-HYDROCHLOROTHIAZIDE 25 MG TABLET - AMOXICILLIN 875 MG-POTASSIUM CLAVULANATE 125 MG TABLET -Increase fluid intake. Try to drink at least 8 glasses of non caffeinated fluids daily. --Rest as much as possible. -Do the nasal saline irrigation at least 2 x day to relieve nasal mucous and congestion: brands include Julio Cesar Med, Simply saline, Gregg nasal spray, or even the generic store brand one is ok. Take the entire course of antibiotics as prescribed. DO NOT stop taking it early, even if you are feeling better. -Practice good hygiene, wash hands frequently. -Monitor for signs of worsening infection: increased temperature, pain in face, ear pain or headaches or increase in nasal congestion/mucous that is not improving. -Educated patient on side effects of medication. You can take an OTC probiotic such as Culturelle or Align to help with stomach upset/loose stool that you may get as a side effect of the antibiotic.Prescriptions ordered this encounter Disp Refills Start End AMOXICILLIN 875 MG-POTASSIUM CLAVULA* 20 t* 0 06/04/2018 06/14/2018 Route: ORAL Sig: Take 1 tablet by mouth twice daily for 10 days. Status:Closed by BRIDGET CASTRO CNP on 06/04/18 Normal [facility] PROGRESSon 06-04-2018 Protein mass conc HNO ID: [id number] thor: Bridget (Jayshree) Oumouervice: (none)Author Type: Nurse PractitionerType: Progress NotesFiled: 06/04/2018 7:33 PMNote Text:SubjectiveThe history is provided by the patient. No banking officer was used.CoughAssociated symptoms include headaches (sinus). Pertinent negatives includeno chest pain, no chills, no ear pain, no sore throat, no myalgias, noshortness of breath and no wheezing.HPI Isa Betancourt is a 52 year old female who presents today for CC ofcough This started over the past month. she is also having facialpressure Symptoms are worsened by leaning forward She has tried OTCclaritin D Risk factors family members ill. PMH seasonal allergies,sinusitis, pneumoniaBP 110/80 Pulse 84 Temp 36.5 ?C (97.7 ?F) (Left Tympanic) Resp 16 Wt 73.5 kg (162 lb) SpO2 98%ALLERGIESNo Known AllergiesThere is no problem list on file for this patient.No family history on file.Social History Marital status: Legally Spouse name: Years of education: Number of children:Social History Main Topics Smoking status: Never Smoker Smokeless tobacco: Never UsedReview of SystemsConstitutional: Negative. Negative for chills, fever and malaise/fatigue.HENT: Positive for congestion and sinus pain. Negative for ear pain andsore throat.Respiratory: Positive for cough. Negative for sputum production, shortnessof breath and wheezing.Cardiovascular: Negative for chest pain.Musculoskeletal: Negative for myalgias.Skin: Negative for rash.Neurological: Positive for headaches (sinus).ObjectivePhysical ExamConstitutional: She is well-developed, well-nourished, and in no distress.HENT:Head: Normocephalic and atraumatic.Right Ear: Tympanic membrane, external ear and ear canal normal. Tympanicmembrane is not injected, not erythematous, not retracted and not bulging.No middle ear effusion.Left Ear: Tympanic membrane, external ear and ear canal normal. Tympanicmembrane is not injected, not erythematous, not retracted and not bulging. No middle ear effusion.Nose: Mucosal edema and rhinorrhea present. Right sinus exhibits frontalsinus tenderness. Right sinus exhibits no maxillary sinus tenderness. Leftsinus exhibits frontal sinus tenderness. Left sinus exhibits no maxillarysinus tenderness.Mouth/Throat: Uvula is midline and mucous membranes are normal. Posteriororopharyngeal erythema present. No oropharyngeal exudate, posteriororopharyngeal edema or tonsillar abscesses.Clear thick post nasal drainageEyes: Conjunctivae and EOM are normal. Pupils are equal, round, andreactive to light.Neck: Normal range of motion.Cardiovascular: Normal rate, regular rhythm and normal heart sounds.Pulmonary/Chest: Effort normal and breath sounds normal. No respiratorydistress. She has no wheezes. She has no rales.Lymphadenopathy: Head (right side): No submental, no submandibular, no tonsillar, nopreauricular and no posterior auricular adenopathy present. Head (left side): No submental, no submandibular, no tonsillar, nopreauricular and no posterior auricular adenopathy present. She has no cervical adenopathy. Right cervical: No posterior cervical adenopathy present. Left cervical: No posterior cervical adenopathy present. Right: No supraclavicular adenopathy present. Left: No supraclavicular adenopathy present.Skin: Skin is warm and dry.Psychiatric: Affect normal.Nursing note and vitals reviewed.ASSESSMENT/PLAN:1. Acute non-recurrent frontal sinusitis - ICD9: 461.1, ICD10: J01.10- Will begin treatment with Augmentin 875 mg PO BID for 10 days- The patient should also be given warm salt water gargles, throatlozenges and/or OTC throat spray as needed for the first 5-7 days oftreatment.- Supportive care with plenty of fluids, rest, and analgesia prn.- Follow up in one week if symptoms persist or worsen.- THYROID (PORK) 30 MG TABLET- PHENTERMINE 7.5 MG-TOPIRAMATE ER 46 MG CAPSULE,EXT.RELEASE 24HR MPHASE- TRIAMTERENE 37.5 MG-HYDROCHLOROTHIAZIDE 25 MG TABLET- AMOXICILLIN 875 MG-POTASSIUM CLAVULANATE 125 MG TABLET-Increase fluid intake. Try to drink at least 8 glasses of noncaffeinated fluids daily.--Rest as much as possible.-Do the nasal saline irrigation at least 2 x day to relieve nasal mucousand congestion: brands include Julio Cesar Med, Simply saline, Gregg nasal spray,or even the generic store brand one is ok.Take the entire course of antibiotics as prescribed. DO NOT stop taking itearly, even if you are feeling better.-Practice good hygiene, wash hands frequently.-Monitor for signs of worsening infection: increased temperature, pain inface, ear pain or headaches or increase in nasal congestion/mucous that isnot improving.-Educated patient on side effects of medication.You can take an OTC probiotic such as Culturelle or Align to help withstomach upset/loose stool that you may get as a side effect of theantibiotic.Diagnosis and treatment plan were discussed and questions were answered tothe patient's satisfaction. Pt acknowledged understanding of concepts andfollow up plan.Specific signs and symptoms that would indicate the need for higher levelof care were discussed in detail warranting prompt ER evaluation.Bridget Castro, SPRING SETTER.CASINO PORTER Normal [facility] Influenza virus A and B and SARS-CoV-2 (COVID-19) Ag panel - Upper respiratory specim SARS-CoV-2 (COVID-19) RNA BEAR+probe Ql (Resp) [facility] Work Phone: Vital Signs Date Time Vital Sign Value Performing Clinician Martin lieberman 04-17-2025 14:39-0400 Body height 162.[address] Negra Dasilva DO Work Phone: [facility] 04-17-2025 14:39-0400 Body mass index (BMI) [Ratio] 23.5 kg/m2 Dr. Negra Dasilva DO Work Phone: [facility] 04-17-2025 14:39-0400 Body temperature 98.4 [degF] Dr. Negra Dasilva DO Work Phone: [facility] 04-17-2025 14:39-0400 Body weight 62.[address] Negra Dasilva DO Work Phone: [facility] 04-17-2025 14:39-0400 Diastolic blood pressure 70 mm[Hg] Dr. Negra Dasilva DO Work Phone: [facility] 04-17-2025 14:39-0400 Heart rate 87 /min Dr. Negra Dasilva DO Work Phone: [facility] 04-17-2025 14:39-0400 SaO2% (BldA) [Mass fraction] 99 % Dr. Negra Dasilva DO Work Phone: [facility] 04-17-2025 14:39-0400 Systolic blood pressure 110 mm[Hg] Dr. Negra Dasilva DO Work Phone: [facility] 01-28-2024 10:47-0400 Body height 162.[address] Zane Mcmanus Work Phone: [facility] 01-28-2024 10:47-0400 Body mass index (BMI) [Ratio] 23.3 kg/m2 Dr. Zane Mcmanus Work Phone: [facility] 01-28-2024 10:47-0400 Body weight 61.[address] Zane Mcmanus Work Phone: [facility] 11-25-2022 12:37-0500 Body height 162.[address] Negra Dasilva Work Phone: [facility] 11-25-2022 12:37-0500 Body mass index (BMI) [Ratio] 29.2 kg/m2 Dr. Negra Dasilva Work Phone: [facility] 11-25-2022 12:37-0500 Body weight 77.[address] Negra Dasilva Work Phone: [facility] 10-22-2022 14:35-0500 Diastolic blood pressure 66 mm[Hg] [facility] 10-22-2022 14:35-0500 Heart rate 79 /min [facility] 10-22-2022 14:35-0500 Respiratory rate 15 /min [facility] 10-22-2022 14:35-0500 SaO2% (BldA) [Mass fraction] 98 % [facility] 10-22-2022 14:35-0500 Systolic blood pressure 124 mm[Hg] [facility] 10-22-2022 11:24-0500 Body height 162.56 cm [facility] Work Phone: 10-22-2022 11:24-0500 Body mass index (BMI) [Ratio] 29 kg/m2 [facility] 10-22-2022 11:24-0500 Body temperature 98.2 [degF] [facility] 10-22-2022 11:24-0500 Body weight 76.65 kg [facility] 06-05-2022 08:20-0400 Body height 165.[address] Ngera Dasilva Work Phone: [facility] Work Phone: 06-05-2022 08:20-0400 Body mass index (BMI) [Ratio] 28.3 kg/m2 Dr. Negra Dasilva Work Phone: [facility] Work Phone: 06-05-2022 08:20-0400 Body temperature 97.8 [degF] Dr. Negra Dasilva Work Phone: [facility] Work Phone: 06-05-2022 08:20-0400 Body weight 77.[address] Negra Dasilva Work Phone: [facility] Work Phone: 06-05-2022 08:20-0400 Diastolic blood pressure 76 mm[Hg] Dr. Negra Dasilva Work Phone: [facility] Work Phone: 06-05-2022 08:20-0400 Heart rate 97 /min Dr. Negra Dasilva Work Phone: [facility] Work Phone: 06-05-2022 08:20-0400 Respiratory rate 16 /min Dr. Negra Dasilva Work Phone: [facility] Work Phone: 06-05-2022 08:20-0400 SaO2% (BldA) [Mass fraction] 96 % Dr. Negra Dasilva Work Phone: [facility] Work Phone: 06-05-2022 08:20-0400 Systolic blood pressure 118 mm[Hg] Dr. Negra Dasilva Work Phone: [facility] Work Phone: 04-25-2022 13:31-0400 Body mass index (BMI) [Ratio] 28 kg/m2 Dr. Negra Dasilva Work Phone: [facility] Work Phone: 04-25-2022 13:31-0400 Body temperature 96.2 [degF] Dr. Negra Dasilva Work Phone: [facility] Work Phone: 04-25-2022 13:31-0400 Body weight 76.[address] Negra Dasilva Work Phone: [facility] Work Phone: 04-25-2022 13:31-0400 Diastolic blood pressure 80 mm[Hg] Dr. Negra Dasilva Work Phone: [facility] Work Phone: 04-25-2022 13:31-0400 Heart rate 90 /min Dr. Negra Dasilva Work Phone: [facility] Work Phone: 04-25-2022 13:31-0400 Respiratory rate 18 /min Dr. Negra Dasilva Work Phone: [facility] Work Phone: 04-25-2022 13:31-0400 SaO2% (BldA) [Mass fraction] 98 % Dr. Negra Dasilva Work Phone: [facility] Work Phone: 04-25-2022 13:31-0400 Systolic blood pressure 120 mm[Hg] Dr. Negra Dasilva Work Phone: [facility] Work Phone: Encounters Encounter Date Encounter Type Care Provider Facility Start: 04-17-2025 End: 04-17-2025 Patient encounter procedure Osbaldo Gaston [facility] Work Phone: Start: 04-17-2025 End: 04-17-[address] Negra Dasilva DO Work Phone: [facility] Work Phone: Start: 10-10-2024 End: 10-10-20[facility] Start: 05-05-2024 End: 05-05-2024 [facility] Start: 02-24-2024 End: 02-24-[address] Zane Mcmanus Work Phone: [facility] Work Phone: Start: 02-24-2024 End: 02-24-[address] Zane Mcmanus Work Phone: [facility] Work Phone: Start: 01-28-2024 Non-patient / Non-visit Dr. Zane Mcmanus Work Phone: [facility] Work Phone: Start: 01-13-2024 End: 01-13-2024 ambulatory [facility] Work Phone: Start: 01-13-2024 End: 01-13-2024 [facility] Start: 01-01-2024 End: 01-01-2024 ambulatory [facility] Work Phone: Start: 01-01-2024 End: 01-01-2024 [facility] Work [facility] Start: 05-11-2023 End: 05-11-2023 ambulatory [facility] Work Phone: Start: 05-11-2023 End: 05-11-2023 [facility] Start: 01-30-2023 End: 01-30-[address] Negra Dasilva Work Phone: [facility] Work Phone: Start: 01-30-2023 End: 01-30-[address] Negra Dasilva [facility] Arreola [facility] Start: 12-23-2022 End: 12-23-[address] Neg[facility] Dasil[facility] Arreola [facility] Start: 11-25-2022 Non-patient / Non-visit Dr. Negra Dasilva Work Phone: [facility] Start: 10-22-2022 End: 10-22-2022 Emergency department patient visit [facility] Start: 10-16-2022 End: 10-16-2022 ambulatory [facility] Work Phone: Start: 10-16-2022 End: 10-16-2022 Patient encounter procedure [facility] Start: 06-10-2022 End: 06-10-[address] Negra Dasilva Work Phone: [facility] Start: 06-05-2022 End: 06-05-[address] Negra Dasilva Work Phone: [facility] Start: 04-25-2022 End: 04-25-[address] Negra Dasilva Work Phone: [facility] End[facility] Start: 10-30-2021 End: 10-30-2021 [facility] Start: 10-16-2018 End: 11-01-2018 [facility] Start: 06-07-2018 End: 06-10-2018 Patient encounter procedure JUVENCIO [facility] Start: 06-04-2018 End: 06-07-2018 Patient encounter procedure JUVENCIO [facility] Procedures Date Procedure Procedure Detail Performing Clinician Start: 02-24-2024 Screening mammography Aracely Mcmanus Work Phone: Start: 01-01-2024 Urine culture Start: 10-22-2022 Plain chest X-ray SARS-CoV-2 & FLU Ant igen (Rapid) SARS-CoV-2 & FLU Ant igen (Rapid) Dr. Negra Dasilva Work Phone: Plan of Treatment Date Care Activity Detail Author Start: 06-05-2022 Patient referral [facility] Work Phone: Colonoscopy [facility] Colonoscopy [facility] Patient Education ED Gastroenter itis, Viral (Adult) [facility] Work Phone: Patient referral [facility] Work Phone: Payers Date Payer Category Payer Self-pay [id number] 2024 Unknown [id number] 1965 Unknown [id number] Private Health Insurance [facility] [id number] Unknown [id number] Unknown [id number] Unknown [id number] Social History Date Type Detail Facility Start: 06-05-2022 End: 07-30-2023 Tobacco smoking status [facility] Unknown if ever smoked [facility] Start: 1965 Sex Assigned At Female [facility] Start: 05-05-2024 Tobacco smoking stat [facility] Never smoked tobacco (finding) [facility] Evaluation note Note Date & Type Note Facility Evaluation note Diagnosis Onset Date Postablative hypothyroidism acute IBS (irritable bowel syndrome) acute Postablative hypothyroidism acute Colon cancer screening nonea ctive Encounter to establish care noneactive [facility] Work Phone: Evaluation note Note Date & Type Note Facility Evaluation note No assessment information availa ble [facility] Work Phone: Reason for referral (narrative) Note Date & Type Note Facility Reason for referral (narrative) No reason for referral information available [facility] Work Phone: Summary Purpose Family History No Family History Records Found Relationship Condition Age at Onset Recorded Date/T shirley father Malignant neoplasm Unknown grandfather Myocardial infarction Unknown grandmother Dementia Unknown Relationship Condition Age at Onset Recorded Date/T shirley father Colorectal cancer Unknown grandfather Myocardial infarction Unknown Malignant neoplasm of colon Unknown grandmother Dementia Unknown Advance Directives No Advanced Directives Records Found Advance Directive Response Recorded Date/ Time Living Will No November 16 6:08pm Power of Social Work Manager No November 16 6:08pm Advance Directive Response Recorded Date/ Time Living Will No November 16 0 5:08pm Power of Social Work Manager No November 16, 020 5:08pm Advance Directive Response Recorded Date/ Time Living Will No October 22 11:52am Power of Social Work Manager No October 22, 2022 11:52am Advance Directive Response Recorded Date/ Time Living Will No October 22 12:52pm Power of Social Work Manager No October 22, 2022 12:52pm Advance Directive Response Recorded Date/ Time Living Will No July 30, 2023 8:56am Power of Social Work Manager No July 8:56am Advance Directive Response Recorded Date/ Time Living Will No July 30, 2023 9:56am Power of Social Work Manager No July 9:56am Chief Complaint and Reason for Visit Chief Complaint [facility], HYPOTHYROID, ABN TSH, PT NEEDS NPP VICE PRESIDENT PHARM[facility], EST. CARE, NPP MAILED E ORDERS Reason for Visit Postablative hypothy roidism IBS (irritable bowel syndrome) Postablative hypothyroidism Colon cancer screening Encounter to establish care Chief Complaint N/V/D Chief Complaint N/V/D Amb Documentation Chief Complaint Amb Documentation SCREENING Chief Complaint Admit Date SEASONAL ALLERGIES April 17, 2025 2:40p m Additional Source Comments INFORMATION SOURCE (unrecogn ized section and content) DATE CREATED AUTHOR 11/03/2018 [facility] DATE CREATED AUTHOR AUTHOR'S ORGANIZ ATION 11/01/2021 [facility] DATE CREATED AUTHOR AUTHOR'S ORGANIZ ATION 04/18/2025 [facility] Goals (unrecognized section and content) Goals may be documented in a n alternate sectionGoals may be documented in an alternate sectionGoals may be documented in an alternate sectionGoals may be documented in an alternate sectionGoals may be documented in an alternate sectionGoals may be documented in an alternate sectionGoals may be documented in an alternate sectionGoals may be documented in an alternate sectionGoals may be documented in an alternate section Care Teams (unrecognized sec tion and content) Team Status: Active Member Role Status Dates Dr. Negra Dasilva DO Family Provider Active Dr. Negra Dasilva , DO Primary Care Provider Active Team Status: Active Member Role Status Dates Dr. Negra Dasilva DO Primary Care Provider Active [facility] Attending Provider Active Team Status: Inactive Member Role Status Dates Dr. Negra Dasilva DO Primary Care Provide r, Attending Provider, Referring Provider Active Team Status: Inactive Member Role Status Dates Dr. Negra Dasilva DO Primary Care Provider Active Dr. Ke Villarreal DO Attending Provider, Emergency P rovider Active Team Status: Inactive Member Role Status Dates Dr. Negra Dasilva DO Primary Care Provider, Attending P rovider Active Team Status: Active Member Role Status Dates Dr. Negra Dasilva DO Family Provider Active Dr. Zane Mcmanus DO Primary Care Provider Active Team Status: Inactive Member Role Status Dates Dr. Zane Mcmanus DO Primary Care Provider, Attendin g Provider Active Team Status: Active Member Role Status Dates Dr. Zane Mcmanus DO Primary Care Provider Active [facility] Attending Provider Active Team Status: Inactive Member Role Status Dates Dr. Negra Dasilva DO Primary Care Provider Active Start: April 17, 2025 End: April 17, 2025 Dr. Negra Dasilva DO Referring Provider Active St art: April 17, 2025 End: April 17, 2025 Osbaldo BURCIAGA, PA Attending Provider Active Start: April 17, 2025 End: April 17, 2025 FOR RECORDS PERTAINING TO PATIENTS WHO ARE [...] BE BASED ON THE PRIMARY CLINICAL RECORDS. [employer] provides no warranty or guarantee of the accuracy or completeness of information in this document.
== END 2025-04-18 13:46 | disposition home or self-care (01) ==
PROVIDERS: Emergency Provider Emergency Medicine; PCP Family Medicine; Visit Provider Emergency Medicine
DX: S61.210A Laceration without foreign body of right index finger without damage to nail, initial encounter (principal); W23.0XXA Caught, crushed, jammed, or pinched between moving objects, initial encounter; E89.0 Postprocedural hypothyroidism
CPT/HCPCS: 12001; 99282

== ENCOUNTER → 2025-06-23 | Outpatient (CLI) | payer OTHER, SELFPAY ==
[2025-06-23 16:15] LABS: Syphilis Antibodies Nonreactive (Nonreactive)
[2025-06-23 16:18] LABS: Hematocrit 43.7 % (37-47); Hemoglobin 14.6 g/dL (12.0-15.0); Immature Granulocytes Count 0.020 X10^3/uL (0.0-0.0); Mean Corp Hgb Conc 33.4 g/dL (32-36); Mean Corpuscular Volume 92.6 fL (81-99); Mean Platelet Vol. 11.8 fl (6.2-12.0); NRBC Flagged by Analyzer 0 % (0-5); Platelet Count 253 K/mm3 (150-450); RBC Distribution Width CV 12.7 % (11.6-14.6); RBC Distribution Width SD 43.5 fl (35.1-43.9); Red Blood Count 4.72 M/mm3 (4.2-5.4); White Blood Count 6.2 K/mm3 (4.4-11.0)
[2025-06-23 16:27] LABS: Anion Gap 12 (5-15); BUN 17 mg/dL (4-19); BUN/Creat Ratio 19.3 RATIO (10-20); Calcium,Total 9.4 mg/dL (7.6-11.0); Carbon Dioxide 25.7 mmol/L (21.0-32.0); Chloride 103 mmol/L (98-108); Glucose 91 mg/dL (70-99); Potassium 3.8 mmol/L (3.3-5.1)
[2025-06-23 16:44] LABS: CRP < 3.00 mg/L (0.0-3.0)
[2025-06-26 15:08] LABS: Cytoplasmic Ab (C-ANCA) <1:20 titer (Neg:<1:20); Perinuclear Ab (P-ANCA) <1:20 titer (Neg:<1:20)
[2025-06-30 11:08] LABS: Angiotensin Convert Enzyme 35 U/L (14-82); HLA B27 Negative (.); QNTFERON TB Mitogen Value > 10.00 IU/mL (.); QNTFERON TB Nil Value 0.01 IU/mL (.); QNTFERON TB1+ Ag Value 0.01 IU/mL (.); QNTFERON TB2+ Ag Value 0.02 IU/mL (.); QNTIFERON TB Positive Criteria Negative (Negative)
== END | disposition home or self-care (01) ==
LOC: MTLAB 11:52
PROVIDERS: PCP Family Medicine; Referring Provider Ophthalmology; Visit Provider Ophthalmology
DX: H47.10 Unspecified papilledema (principal)
CPT/HCPCS: 36415; 80048; 81374; 82164; 85025; 85652; 86037; 86140; 86431; 86480; 86617; 86777; 86778; 86780

== ENCOUNTER → 2025-08-16 | Outpatient (CLI) | payer OTHER, SELFPAY ==
[2025-08-16 16:15] LABS: AST(SGOT) 23 U/L (<=31); Alanine Aminotransfer ALT/SGPT 22 U/L (<=34); Albumin, Serum 4.2 g/dL (3.4-4.8); Alkaline Phosphatase 94 U/L (35-104); Anion Gap 12 (5-15); BUN 19 mg/dL (4-19); BUN/Creat Ratio 26.0 RATIO (10-20); Calcium,Total 9.0 mg/dL (7.6-11.0); Carbon Dioxide 23.5 mmol/L (21.0-32.0); Chloride 106 mmol/L (98-108); Free T3 2.1 pg/mL (2.18-3.98); Globulin 2.7 g/dL (2.2-4.2); Glucose 86 mg/dL (70-99); Potassium 4.0 mmol/L (3.3-5.1)
== END | disposition home or self-care (01) ==
LOC: MTLAB 11:41
PROVIDERS: PCP Family Medicine; Referring Provider Family Medicine; Visit Provider Family Medicine
DX: E03.9 Hypothyroidism, unspecified (principal); Z51.81 Encounter for therapeutic drug level monitoring; W57.XXXA Bitten or stung by nonvenomous insect and other nonvenomous arthropods, initial encounter
CPT/HCPCS: 36415; 80053; 84439; 84443; 84481; 86617